=== PATIENT | male | born 1965 | race Caucasian/White ===

== ENCOUNTER 2020-06-06 02:58 | Emergency (ER) | payer MEDICARE, MEDICAID, SELFPAY ==
[2020-06-06 03:06] VITALS: BP 146/92; PULSE 89; RESP 16; TEMP 36.4; O2SAT 99; BMI 25.8
[2020-06-06 03:21] LABS: MANUAL DIFF FLAG NO
[2020-06-06 03:22] LABS: Basophils Absolute Auto 0.1 X10*3/uL (0.0-0.2); Basophils Percent Auto 0.7 % (0-2); Eosinophils Absolute Auto 0.6 X10*3/uL (0.0-0.4); Eosinophils Percent Auto 6.4 % (0-4); Hematocrit 46.9 % (42-52); Hemoglobin 15.2 g/dl (14.0-18.0); Imm Gran Abs Auto 0.02 X10*3/uL (0.00-0.03); Imm Gran Pct Auto 0.2 % (0.0-0.4); Lymphocytes Absolute Auto 1.8 X10*3/uL (1.2-4.9); Lymphocytes Percent Auto 19.6 % (20-40); Mean Corpuscular HGB Conc 32.4 g/dl (31.0-36.0); Mean Corpuscular Hemoglobin 29.3 pg (27.0-33.0); Mean Corpuscular Volume 90.5 fL (80-98); Monocytes Absolute Auto 0.9 X10*3/uL (0.1-1.2); Monocytes Percent Auto 9.2 % (2-11); Neutrophils Percent Auto 63.9 % (45-73); Platelet Count 373 X10*3/uL (160-400); Red Blood Count 5.18 X10*6/uL (4.60-5.80); Red Cell Distribution Width 11.9 % (11.0-16.0); White Blood Count 9.4 X10*3/uL (4.8-10.8)
[2020-06-06 04:00] LABS: Alanine Aminotransferase 9 U/L (0-40); Albumin Level 3.9 g/dL (3.5-5.0); Alkaline Phosphatase 72 U/L (39-117); Anion Gap 12 (12-20); Aspartate Amino Transferase 12 U/L (5-37); Bilirubin Total 0.6 mg/dL (0.0-1.0); Blood Urea Nitrogen 18 mg/dL (9-16); Carbon Dioxide 24 mmol/L (22-29); Chloride 104 mmol/L (96-108); Creatinine Clr Calc Pharmacy 90.7; Estimated Glomerular Filt Rate > 60; Glucose Random 85 mg/dL (60-115); Potassium 4.3 mmol/l (3.3-5.1); Sodium 136 mmol/L (135-145); Total Protein 6.8 g/dL (6.5-8.0)
[2020-06-06 05:03] LABS: Calcium 8.8 mg/dL (8.4-10.2)
[2020-06-06 06:20] VITALS: BP 156/97; PULSE 88; RESP 16; TEMP 36.5; O2SAT 96
--- NOTE | 2020-06-06 06:34 | CT_ITS ---
EXAMINATION: CT ABDOMEN AND PELVIS WITHOUT CONTRAST CLINICAL INFORMATION: Constipation. Urinary retention. Abdominal pain. COMPARISON: Previous CTA of the abdomen and pelvis February 2020 TECHNIQUE: Multidetector volumetric imaging was performed from the superior aspect of the liver through the pubic symphysis. Sagittal and coronal reformatted images were obtained on the technologist's workstation. This CT examination was performed using dose optimization techniques as appropriate, variously including the following: *Automated exposure control *Adjustment of mA and/or kV according to patient size (this includes techniques or standardized protocols for targeted exams where dose is matched to indication/reason for exam; i.e. extremities or head) *Use of iterative reconstruction technique DLP: 749 mGy-cm FINDINGS: LUNG BASES: The visualized lung bases are unremarkable. LIVER, GALLBLADDER, AND BILIARY TREE: The liver is normal in size, shape, and attenuation. No focal hepatic lesion or biliary ductal dilatation is present. The gallbladder is unremarkable with no evidence of radiopaque gallstones, gallbladder wall thickening, or obvious pericholecystic inflammatory changes. PANCREAS: Unremarkable. SPLEEN: Unremarkable. ADRENAL GLANDS: There is nodular contour of the adrenal glands. There is question of bilateral low-attenuation adrenal nodules measuring 1 x 1.7 cm on the right axial image 20 series 3 and 6 mm on the left axial image 22 series 3. Hounsfield units measure 9 and -22 suggestive of a benign adenomas. This is similar appearing to recent CTA of the abdomen and pelvis. KIDNEYS AND URETERS: There is a left cortical thinning or scarring in the upper pole. There is a small 2 mm left upper and midpole stone. No hydronephrosis, ureteral dilatation or ureteral stone is seen. BLADDER: Unremarkable. GASTROINTESTINAL TRACT: There is stool throughout the colon questionable for constipation. No dilated loops of bowel to suggest obstruction are seen. The small bowel is unremarkable. The appendix is unremarkable. The stomach is unremarkable. ABDOMINAL WALL: No significant hernia is appreciated. LYMPH NODES: Normal. VASCULAR: There is evidence of atherosclerotic disease. No aneurysm is seen. PELVIC VISCERA: Unremarkable. OSSEOUS STRUCTURES: There is a scoliosis and degenerative change of the spine. There may be an old L1 vertebral body compression fracture. There is question of evidence of old trauma to the right pelvis/acetabulum. No acute fracture is seen. IMPRESSION: Cortical thinning or scarring in the upper pole of the left kidney. Small nonobstructing left renal stone. Otherwise normal-appearing kidneys and bladder. Stool throughout the colon suggestive of constipation. No evidence of obstruction. Probable small bilateral adrenal adenomas.
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
[2020-06-06 08:00] VITALS: BP 133/85; PULSE 75; RESP 16
[2020-06-06 10:19] LABS: Glucose Urine UA NEG (NEG); Leukocyte Esterase Urine NEG (NEG); Nitrite Urine NEG (NEG); PH 6.5 (5.0-8.0); Specific Gravity - Urine 1.025 (1.005-1.025); Urine Blood NEG (NEG); Urine Ketones NEG (NEG); Urine Protein NEG (NEG-TRACE)
[2020-06-06 10:22] LABS: Appearance Urine HAZY; Color Urine YELLOW; UACC Culture Trigger NO
== END 2020-06-06 13:25 | disposition home or self-care (01) ==
PROVIDERS: Emergency Provider Emergency Medicine
DX: K59.00 Constipation, unspecified (principal); Z79.899 Other long term (current) drug therapy
CPT/HCPCS: 36415; 74176; 80053; 81003; 85025; 99284

== ENCOUNTER 2020-08-19 01:49 | Emergency (ER) | payer MEDICARE, SELFPAY ==
[2020-08-19 02:05] VITALS: BP 133/84; PULSE 86; RESP 16; TEMP 36.8; O2SAT 97; BMI 30.4
--- NOTE | 2020-08-19 05:06 | XR_ITS ---
EXAMINATION: ABDOMEN 1 VIEW CLINICAL INFORMATION: Constipation. COMPARISON: None. TECHNIQUE: A supine view of the abdomen is provided. FINDINGS: There are no dilated loops of small bowel. There are no air-fluid levels. There is no appendicolith. The visualized lung bases are clear. The osseous structures are unremarkable. XR/XR KUB IMPRESSION: Unremarkable bowel gas pattern.
--- NOTE | 2020-08-19 05:44 | ED.GENADULT ---
HPI - General Adult General Chief complaint: General Medical Stated complaint: constipation Time Seen by Provider: 08/19/20 04:23 Source: patient Mode of arrival: ambulatory Limitations: no limitations History of Present Illness HPI narrative: This is a 55-year-old male who presents with complaints of 4 days without having a bowel movement that he states is common for him to have difficulties with and he typically uses [id number] liquid drink to help with his bowel movements and states that this is not been helping. He denies any associated fevers, chills, nausea, vomiting and states that he has continued to pass flatus. Related Data Previous Rx's Medication Instructions Recorded magnesium citrate 37.5 ml PO BID PRN #296 ml 06/06/20 sennosides [senna] 8.6 mg PO BEDTIME PRN #30 cap 06/06/20 Allergies Allergy/AdvReac Type Severity Reaction Status Date / Time No Known Allergies Allergy Unverified 05/10/20 17:06 [No Known Allergies*] Review of Systems Review of Systems: Pertinent positives and negatives as stated in HPI 10 point review of systems is otherwise negative. PMFSH Past Medical History Source: nursing notes reviewed Medical History TBI (traumatic brain injury) Social History Social History Alcohol intake: never Smoking Status: Never smoker Use of substances other than those prescribed or required for medical reasons: No Advance Directives: No Advance Directives Information Provided: Yes Physical Exam Vital Signs: Vital Signs: Last Vital Signs Temp 97.6 F 08/19/20 06:19 Pulse 82 08/19/20 06:19 Resp 16 08/19/20 06:19 BP 131/80 08/19/20 06:19 Pulse Ox 96 08/19/20 06:19 Body Mass Index 30.4 VITAL SIGNS: Reviewed. GENERAL: Well developed, well nourished, in no acute distress. HEAD: Normocephalic/atraumatic, EYES: PERRLA, EOMI intact without pain EARS: Ext canals without abnormality, TMs non-bulging and non-erythematous NOSE: Nares patent bilateral OROPHARYNX: no oral lesions noted, posterior pharynx clear and non-erythematous without noted tonsillar enlargement/erythema/exudates NECK: Supple, no adenopathy LUNGS: Normal breath sounds. No adventitious sounds or accessory muscle use. SpO2<97> CARDIOVASCULAR: Regular rate and rhythm without noted murmurs, no JVD or lower extremity edema. ABDOMEN: Soft, non-tender, non-distended with bowel sounds. No rigidity. No guarding. No palpable masses or hernias noted Course Course Course Narrative: This is a 55-year-old male with history and clinical presentation consistent with chronic constipation and initial KUB significant for normal bowel gas pattern, however given patient's underlying illnesses with seizures and TBI proceed with dry scan of CT abdomen pelvis for further detail. The latter imaging illustrated mild to moderate stool load throughout the colon without obvious distended bowel loops. All results and findings were discussed with the patient at bedside and it was explained to him that at this stage he would benefit most from increasing the frequency the MiraLax to twice a day as well as purchasing an [id number] Fleet's enema if no bowel movement within 24 hours. He acknowledged understanding and will be discharged home in stable condition with these instructions in his discharge paperwork. Discharge Plan Discharge Clinical Impression: Constipation Qualifiers: Constipation type: other constipation type Qualified Code(s): K59.09 - Other constipation Patient Disposition: Home, Self-Care Instructions: Constipation (ED), Fleet Enema (ED), High Fiber Diet (ED) Additional Instructions: 1. MiraLax 1 packet, orally, twice a day until you began having regular soft bowel movements. You should stop this if you begin developing diarrhea. 2. Recommend using a Fleet's enema if you do not began having bowel movements within the next 24 hours. Only use the Fleet's enema once. 3. Increase water intake as well as raw fruits and vegetables. 4. Please return to the emergency department if you do not experience any improvement in 48 hours. Prescriptions: No Action senna 8.6 mg capsule 8.6 mg PO BEDTIME PRN (Reason: constipation) Qty: 30 RF: 0 magnesium citrate Solution 37.5 ml PO BID PRN (Reason: constipation) Qty: 296 RF: 0 Referrals: Tremayne Deras MD [Primary Care Provider] - 2 days (Re-evaluation for constipation)
--- NOTE | 2020-08-19 05:55 | CT_ITS ---
EXAMINATION: CT ABDOMEN AND PELVIS WITHOUT CONTRAST CLINICAL INFORMATION: Abdominal discomfort. COMPARISON: 06/06/2020. TECHNIQUE: Contiguous axial thin section helical images of the abdomen and pelvis were performed without oral or IV contrast. The data set was reformatted in the coronal and sagittal planes and reviewed on an independent workstation. Please note that evaluation for inflammatory and infectious processes is significantly limited due to the lack of IV contrast. DLP: 621 mGy-cm. FINDINGS: There is mild dependent bibasilar atelectasis. The visualized lung bases are otherwise clear. The visualized portions of the heart are unremarkable. The liver is of normal size and attenuation without focal lesions nor intrahepatic biliary ductal dilation. A normal gallbladder is identified. There is no wall thickening or discernible pericholecystic fluid. The spleen, pancreas and left adrenal glands are unremarkable. There is stable fullness to the right adrenal gland measuring 17 mm. Both kidneys are of normal size and attenuation without hydronephrosis or nephrolithiasis. There is stable scarring within the interpole region of the left kidney. There is no abdominal free fluid. There is neither mesenteric nor retroperitoneal lymphadenopathy. Normal unopacified loops of small and large bowel are identified. A normal appendix is identified. There is no pelvic free fluid. The urinary bladder is unremarkable. There is neither pelvic nor inguinal lymphadenopathy. Bone windows: Neither sclerotic nor lytic bone lesions are identified. CT/CT abdomen pelvis wo con IMPRESSION: Please note that evaluation for inflammatory and infectious processes is significantly limited due to the lack of IV contrast. However, no acute inflammatory or infectious processes are suspected on the noncontrast exam. Automated exposure control (Care Dose) Adjustment of the mA and/or kv according to patient size (this includes techniques or standardized protocols for targeted exams where dose is matched to indication / reason for exam; i.e. extremities or head).
[2020-08-19 06:19] VITALS: BP 131/80; PULSE 82; RESP 16; TEMP 36.4; O2SAT 96
== END 2020-08-19 07:57 | disposition home or self-care (01) ==
PROVIDERS: Emergency Provider Student in an Organized Health Care Education/Training Program; PCP Internal Medicine
DX: K59.09 Other constipation (principal); Z79.899 Other long term (current) drug therapy
CPT/HCPCS: 74018; 74176; 99284

== ENCOUNTER 2020-11-13 13:36 | Emergency (ER) | payer MEDICARE, SELFPAY ==
--- NOTE | ~2020-11-13 | CT_ITS ---
EXAMINATION: HEAD AND FACIAL BONES AND CERVICAL SPINE CT WITHOUT CONTRAST CLINICAL INFORMATION: Full seizure. Fall. Laceration right maxillary area. COMPARISON: Previous head CT most recent February 2020 TECHNIQUE: Axial images through the head, facial bones and cervical spine without contrast. Sagittal and coronal reconstructions on the technologist workstation were performed. Patient dose 846+525+5 2 8 mg/cm. This CT examination was performed using dose optimization techniques as appropriate, variously including the following: *Automated exposure control *Adjustment of mA and/or kV according to patient size (this includes techniques or standardized protocols for targeted exams where dose is matched to indication/reason for exam; i.e. extremities or head) *Use of iterative reconstruction technique FINDINGS: Head CT: There is no evidence of an extra-axial collection. There is no evidence of intra-axial or extra-axial hemorrhage. There are atrophic changes of the cerebellum. The ventricles and extra-axial CSF spaces are otherwise appropriate. Davies-white matter differentiation is normal. No mass, mass effect or infarct is seen. Review at bone windows is normal. No skull fracture is seen. Visualized paranasal sinuses, mastoid air cells and middle ears are clear. Facial bone bone: No fracture or dislocation is seen. Paranasal sinuses, mastoid air cells and middle ears are clear. The temporal mandibular joints are normal. There is evidence of trauma to the superficial soft tissues of the right side of the face overlying the right zygomatic arch. Soft tissues are otherwise normal. Cervical spine: There is head tilt to the right and curvature of the mid cervical spine to the left. There is mild anterior subluxation of C4 with respect to C5 measuring 2 mm. Bone alignment is otherwise normal. No fracture or dislocation is seen. There is evidence of multilevel degenerative spondylosis and degenerative disc disease from C3-C3-C4 to C7-T1. There is bilateral multilevel facet arthritis greatest at C4-C5 on the right. Prevertebral soft tissues are normal. Lung apices are clear. CT/CT cervical spine wo con IMPRESSION: Head CT: Cerebellar atrophy. No acute findings. Facial bone CT: No fractures seen. Cervical spine CT: Degenerative changes. No fracture or dislocation seen.
--- NOTE | ~2020-11-13 | XR_ITS ---
EXAMINATION: XR KNEE, RIGHT, hand/wrist, right. CLINICAL INFORMATION: Status post fall. Right hand injury. COMPARISON: None TECHNIQUE: Four views of the right knee. 4 views of right knee. FINDINGS: RIGHT HAND/WRIST: There is no visible fracture, dislocation or subluxation. The soft tissues are normal. RIGHT KNEE: There is mild loss of medial and patellofemoral compartment joint space without any loose bodies, bony erosive changes or joint effusion. There is bone fragment adjacent to the medial femoral condyle likely old avulsion injury. A sessile enthesophyte is seen along the anterior patella. XR/XR hand wrist RT IMPRESSION: Unremarkable right hand/wrist exam. Mild degenerative changes medial and patellofemoral compartment. No fracture, loose bodies or joint effusion. There is a small avulsion fragment adjacent to the medial femoral condyle likely old injury.
--- NOTE | ~2020-11-13 | XR_ITS ---
EXAMINATION: XR KNEE, RIGHT, hand/wrist, right. CLINICAL INFORMATION: Status post fall. Right hand injury. COMPARISON: None TECHNIQUE: Four views of the right knee. 4 views of right knee. FINDINGS: RIGHT HAND/WRIST: There is no visible fracture, dislocation or subluxation. The soft tissues are normal. RIGHT KNEE: There is mild loss of medial and patellofemoral compartment joint space without any loose bodies, bony erosive changes or joint effusion. There is bone fragment adjacent to the medial femoral condyle likely old avulsion injury. A sessile enthesophyte is seen along the anterior patella. XR/XR knee RT 4V IMPRESSION: Unremarkable right hand/wrist exam. Mild degenerative changes medial and patellofemoral compartment. No fracture, loose bodies or joint effusion. There is a small avulsion fragment adjacent to the medial femoral condyle likely old injury.
[2020-11-13 13:47] VITALS: BP 145/78; PULSE 93; RESP 17; TEMP 36.6; O2SAT 95; BMI 30.4
--- NOTE | 2020-11-13 14:10 | ECG_ITS ---
Test Reason : SEIZURE Blood Pressure : / mmHG Vent. Rate : 089 BPM Atrial Rate : 089 BPM P-R Int : 160 ms QRS Dur : 088 ms QT Int : 362 ms P-R-T Axes : 059 061 054 degrees QTc Int : 440 ms Normal sinus rhythm Normal ECG When compared with ECG of 24-FEB-2020 14:04, No significant change was found Referred By: Devika Poole Electronically Signed By:DEDRA BALTAZAR
[2020-11-13] MEDS: Lidocaine HCl 1 % MPF 5 ML VIAL SUBCUT (15:15)
[2020-11-13 15:16] LABS: MANUAL DIFF FLAG NO
[2020-11-13] MEDS: Phenytoin Sodium Extended 100 MG CAPSULE 200 MG PO (15:16)
[2020-11-13] MEDS: Acetaminophen 325 MG TABLET 975 MG PO (15:16)
[2020-11-13 15:27] LABS: Basophils Percent Auto 0.4 % (0-2); Eosinophils Absolute Auto 0.4 X10*3/uL (0.0-0.4); Eosinophils Percent Auto 4.1 % (0-4); Hematocrit 45.6 % (42-52); Hemoglobin 14.7 g/dl (14.0-18.0); Imm Gran Abs Auto 0.03 X10*3/uL (0.00-0.03); Imm Gran Pct Auto 0.3 % (0.0-0.4); Lymphocytes Absolute Auto 1.3 X10*3/uL (1.2-4.9); Lymphocytes Percent Auto 12.9 % (20-40); Mean Corpuscular HGB Conc 32.2 g/dl (31.0-36.0); Mean Corpuscular Hemoglobin 30.4 pg (27.0-33.0); Mean Corpuscular Volume 94.2 fL (80-98); Mean Platelet Volume 8.5 fL (9.4-12.4); Monocytes Absolute Auto 1.2 X10*3/uL (0.1-1.2); Monocytes Percent Auto 11.6 % (2-11); Neutrophils Absolute Auto 7.4 X10*3/uL (2.0-8.3); Neutrophils Percent Auto 70.7 % (45-73); Platelet Count 310 X10*3/uL (160-400); Red Blood Count 4.84 X10*6/uL (4.60-5.80); Red Cell Distribution Width 11.9 % (11.0-16.0); White Blood Count 10.4 X10*3/uL (4.8-10.8)
[2020-11-13 15:28] LABS: INTERNATIONAL NORM RATIO 1.1 (0.9-1.1); Prothrombin Time 13.1 SEC (10.8-13.0)
[2020-11-13 15:30] LABS: Partial Thromboplastin Time 35.5 SEC (24.1-38.0)
[2020-11-13 15:31] LABS: Influenza A PCR NEGATIVE (Negative); Influenza B PCR NEGATIVE (Negative); Resp Syncy Virus RNA Qual PCR NEGATIVE (Negative); SARS COV2 PCR INHOUSE NEGATIVE (Negative)
[2020-11-13 15:42] LABS: Ethanol < 10 mg/dL
[2020-11-13 15:44] LABS: Acetaminophen LAB < 1 mcg/mL (<30); Alanine Aminotransferase 6 U/L (0-40); Albumin Level 4.1 g/dL (3.5-5.0); Alkaline Phosphatase 78 U/L (39-117); Anion Gap 10 (12-20); Aspartate Amino Transferase 12 U/L (5-37); Bilirubin Total 0.7 mg/dL (0.0-1.0); Blood Urea Nitrogen 15 mg/dL (9-16); Calcium 8.9 mg/dL (8.4-10.2); Carbon Dioxide 32 mmol/L (22-29); Chloride 103 mmol/L (96-108); Creatinine Clr Calc Pharmacy 104.9; Estimated Glomerular Filt Rate > 60; Glucose Random 81 mg/dL (60-115); Magnesium 2.5 mg/dL (1.6-2.6); Salicylate < 5.0 mg/dL (15-30); Sodium 141 mmol/L (135-145)
[2020-11-13 15:49] LABS: B Type Natriuretic Peptide < 10 pg/mL (<100); Troponin-I High Sensitivity < 3.5 ng/L (<3.5-35.0)
--- NOTE | 2020-11-13 16:22 | ED_ITS ---
HPI - General Adult General Chief complaint: General Medical Stated complaint: FELL OUT OF WHEELCHAIR Time Seen by Provider: 11/13/20 14:08 Related Data Previous Rx's Medication Instructions Recorded magnesium citrate 37.5 ml PO BID PRN #296 ml 06/06/20 sennosides [senna] 8.6 mg PO BEDTIME PRN #30 cap 06/06/20 phenytoin sodium extended 100 mg PO BID #60 cap 11/13/20 [Dilantin Extended] Allergies Allergy/AdvReac Type Severity Reaction Status Date / Time No Known Allergies Allergy Unverified 05/10/20 17:06 [No Known Allergies*] [facility] Past Medical History Medical History (Updated 11/13/20 @ 17:15 by RIDGE Guthrie) Seizure disorder TBI (traumatic brain injury) Social History Social History Alcohol intake: never Smoking Status: Never smoker Advance Directives: No Advance Directives Information Provided: No Physical Exam Vital Signs: Vital Signs: Last Vital Signs Temp 98 F 11/13/20 13:47 Pulse 93 11/13/20 13:47 Resp 17 11/13/20 13:47 BP 145/78 H 11/13/20 13:47 Pulse Ox 95 11/13/20 13:47 Body Mass Index 30.4 Procedures Laceration Laceration 1: Site: face Side (If applicable): right Size (cm): 3 Description: linear Depth: simple, single layer Local Anesthetic: lidocaine 1% Amount of anesthesia used (mL): 3 Pre-repair: wound explored, irrigated extensively and deep structures intact Skin layer closed with: nylon Size (cm): 5-0 Number of sutures: 7 Technique: simple, interrupted Medical Decision Making Lab Data Lab results reviewed: Yes I reviewed the patient's lab results. Result diagrams: 11/13/20 15:04 11/13/20 15:04 Labs: Lab Results 11/13/20 11/13/20 11/13/20 Range/Units 14:45 15:04 15:04 WBC 10.4 (4.8-10.8) X10*3/uL RBC 4.84 (4.60-5.80) X10*6/uL Hgb 14.7 (14.0-18.0) g/dl Hct 45.6 (42-52) % MCV 94.2 (80-98) fL MCH 30.4 (27.0-33.0) pg MCHC 32.2 (31.0-36.0) g/dl RDW 11.9 (11.0-16.0) % Plt Count 310 (160-400) X10*3/uL MPV 8.5 L (9.4-12.4) fL Immature Gran % (Auto) 0.3 (0.0-0.4) % Neut % (Auto) 70.7 (45-73) % Lymph % (Auto) 12.9 L (20-40) % [place] % (Auto) 11.6 H (2-11) % Eos % (Auto) 4.1 H (0-4) % Baso % (Auto) 0.4 (0-2) % Lymph # (Auto) 1.3 (1.2-4.9) X10*3/uL [place] # (Auto) 1.2 (0.1-1.2) X10*3/uL Eos # (Auto) 0.4 (0.0-0.4) X10*3/uL Baso # (Auto) 0.0 (0.0-0.2) X10*3/uL Abs Immat Gran (auto) 0.03 (0.00-0.03) X10*3/uL Absolute Neuts (auto) 7.4 (2.0-8.3) X10*3/uL Absolute Nucleated RBC 0.000 (0.0-0.012) X10*3/uL Nucleated RBC % (auto) 0.0 (0.0-0.2) /100WBC PT 13.1 H (10.8-13.0) SEC INR 1.1 (0.9-1.1) APTT 35.5 (24.1-38.0) SEC Sodium (135-145) mmol/L Potassium (3.3-5.1) mmol/L Chloride (96-108) mmol/L Carbon Dioxide (22-29) mmol/L Anion Gap (12-20) BUN (9-16) mg/dL Creatinine (0.5-1.4) mg/dL Estim Creat Clear Calc Estimated GFR Random Glucose (60-115) mg/dL Calcium (8.4-10.2) mg/dL Magnesium (1.6-2.6) mg/dL Total Bilirubin (0.0-1.0) mg/dL AST (5-37) U/L ALT (0-40) U/L Alkaline Phosphatase (39-117) U/L Total Creatine Kinase (38-174) U/L Troponin I High Sens (<3.5-35.0) ng/L B-Natriuretic Peptide (<100) pg/mL Total Protein (6.5-8.0) g/dL Albumin (3.5-5.0) g/dL Salicylates (15-30) mg/dL Acetaminophen (<30) mcg/mL Phenytoin (10.0-20.0) ug/mL Ethyl Alcohol mg/dL Coronavirus (PCR) NEGATIVE (Negative) Influenza Type A (PCR) NEGATIVE (Negative) Influenza Type B (PCR) NEGATIVE (Negative) RSV RNA Qual (PCR) NEGATIVE (Negative) 11/13/20 11/13/20 11/13/20 Range/Units 15:04 15:04 15:04 WBC (4.8-10.8) X10*3/uL RBC (4.60-5.80) X10*6/uL Hgb (14.0-18.0) g/dl Hct (42-52) % MCV (80-98) fL MCH (27.0-33.0) pg MCHC (31.0-36.0) g/dl RDW (11.0-16.0) % Plt Count (160-400) X10*3/uL MPV (9.4-12.4) fL Immature Gran % (Auto) (0.0-0.4) % Neut % (Auto) (45-73) % Lymph % (Auto) (20-40) % [place] % (Auto) (2-11) % Eos % (Auto) (0-4) % Baso % (Auto) (0-2) % Lymph # (Auto) (1.2-4.9) X10*3/uL [place] # (Auto) (0.1-1.2) X10*3/uL Eos # (Auto) (0.0-0.4) X10*3/uL Baso # (Auto) (0.0-0.2) X10*3/uL Abs Immat Gran (auto) (0.00-0.03) X10*3/uL Absolute Neuts (auto) (2.0-8.3) X10*3/uL Absolute Nucleated RBC (0.0-0.012) X10*3/uL Nucleated RBC % (auto) (0.0-0.2) /100WBC PT (10.8-13.0) SEC INR (0.9-1.1) APTT (24.1-38.0) SEC Sodium 141 (135-145) mmol/L Potassium 4.0 (3.3-5.1) mmol/L Chloride 103 (96-108) mmol/L Carbon Dioxide 32 H (22-29) mmol/L Anion Gap 10 L (12-20) BUN 15 (9-16) mg/dL Creatinine 0.86 (0.5-1.4) mg/dL Estim Creat Clear Calc 104.9 Estimated GFR > 60 Random Glucose 81 (60-115) mg/dL Calcium 8.9 (8.4-10.2) mg/dL Magnesium 2.5 (1.6-2.6) mg/dL Total Bilirubin 0.7 (0.0-1.0) mg/dL AST 12 (5-37) U/L ALT 6 (0-40) U/L Alkaline Phosphatase 78 (39-117) U/L Total Creatine Kinase (38-174) U/L Troponin I High Sens < 3.5 (<3.5-35.0) ng/L B-Natriuretic Peptide < 10 (<100) pg/mL Total Protein 7.0 (6.5-8.0) g/dL Albumin 4.1 (3.5-5.0) g/dL Salicylates < 5.0 L (15-30) mg/dL Acetaminophen < 1 (<30) mcg/mL Phenytoin (10.0-20.0) ug/mL Ethyl Alcohol < 10 mg/dL Coronavirus (PCR) (Negative) Influenza Type A (PCR) (Negative) Influenza Type B (PCR) (Negative) RSV RNA Qual (PCR) (Negative) 11/13/20 11/13/20 Range/Units 15:04 15:04 WBC (4.8-10.8) X10*3/uL RBC (4.60-5.80) X10*6/uL Hgb (14.0-18.0) g/dl Hct (42-52) % MCV (80-98) fL MCH (27.0-33.0) pg MCHC (31.0-36.0) g/dl RDW (11.0-16.0) % Plt Count (160-400) X10*3/uL MPV (9.4-12.4) fL Immature Gran % (Auto) (0.0-0.4) % Neut % (Auto) (45-73) % Lymph % (Auto) (20-40) % [place] % (Auto) (2-11) % Eos % (Auto) (0-4) % Baso % (Auto) (0-2) % Lymph # (Auto) (1.2-4.9) X10*3/uL [place] # (Auto) (0.1-1.2) X10*3/uL Eos # (Auto) (0.0-0.4) X10*3/uL Baso # (Auto) (0.0-0.2) X10*3/uL Abs Immat Gran (auto) (0.00-0.03) X10*3/uL Absolute Neuts (auto) (2.0-8.3) X10*3/uL Absolute Nucleated RBC (0.0-0.012) X10*3/uL Nucleated RBC % (auto) (0.0-0.2) /100WBC PT (10.8-13.0) SEC INR (0.9-1.1) APTT (24.1-38.0) SEC Sodium (135-145) mmol/L Potassium (3.3-5.1) mmol/L Chloride (96-108) mmol/L Carbon Dioxide (22-29) mmol/L Anion Gap (12-20) BUN (9-16) mg/dL Creatinine (0.5-1.4) mg/dL Estim Creat Clear Calc Estimated GFR Random Glucose (60-115) mg/dL Calcium (8.4-10.2) mg/dL Magnesium (1.6-2.6) mg/dL Total Bilirubin (0.0-1.0) mg/dL AST (5-37) U/L ALT (0-40) U/L Alkaline Phosphatase (39-117) U/L Total Creatine Kinase 88 (38-174) U/L Troponin I High Sens (<3.5-35.0) ng/L B-Natriuretic Peptide (<100) pg/mL Total Protein (6.5-8.0) g/dL Albumin (3.5-5.0) g/dL Salicylates (15-30) mg/dL Acetaminophen (<30) mcg/mL Phenytoin < 0.5 L* (10.0-20.0) ug/mL Ethyl Alcohol mg/dL Coronavirus (PCR) (Negative) Influenza Type A (PCR) (Negative) Influenza Type B (PCR) (Negative) RSV RNA Qual (PCR) (Negative) Imaging Data CT scan of brain/facial bones/cervical spine: Attestation: I personally reviewed and interpreted this imaging study as follows: Radiologist's impression: FINDINGS: Head CT: There is no evidence of an extra-axial collection. There is no evidence of intra-axial or extra-axial hemorrhage. There are atrophic changes of the cerebellum. The ventricles and extra-axial CSF spaces are otherwise appropriate. Davies-white matter differentiation is normal. No mass, mass effect or infarct is seen. Review at bone windows is normal. No skull fracture is seen. Visualized paranasal sinuses, mastoid air cells and middle ears are clear. Facial bone bone: No fracture or dislocation is seen. Paranasal sinuses, mastoid air cells and middle ears are clear. The temporal mandibular joints are normal. There is evidence of trauma to the superficial soft tissues of the right side of the face overlying the right zygomatic arch. Soft tissues are otherwise normal. Cervical spine: There is head tilt to the right and curvature of the mid cervical spine to the left. There is mild anterior subluxation of C4 with respect to C5 measuring 2 mm. Bone alignment is otherwise normal. No fracture or dislocation is seen. There is evidence of multilevel degenerative spondylosis and degenerative disc disease from C3-C3-C4 to C7-T1. There is bilateral multilevel facet arthritis greatest at C4-C5 on the right. Prevertebral soft tissues are normal. Lung apices are clear. CT/CT cervical spine wo con IMPRESSION: Head CT: Cerebellar atrophy. No acute findings. Facial bone CT: No fractures seen. Cervical spine CT: Degenerative changes. No fracture or dislocation seen. Right hand/wrist x-ray/right knee x-ray: Attestation: I personally reviewed and interpreted this imaging study as follows: Radiologist's impression: FINDINGS: RIGHT HAND/WRIST: There is no visible fracture, dislocation or subluxation. The soft tissues are normal. RIGHT KNEE: There is mild loss of medial and patellofemoral compartment joint space without any loose bodies, bony erosive changes or joint effusion. There is bone fragment adjacent to the medial femoral condyle likely old avulsion injury. A sessile enthesophyte is seen along the anterior patella. XR/XR hand wrist RT IMPRESSION: Unremarkable right hand/wrist exam. Mild degenerative changes medial and patellofemoral compartment. No fracture, loose bodies or joint effusion. There is a small avulsion fragment adjacent to the medial femoral condyle likely old injury. ECG Data Attestation: I personally reviewed and interpreted this ECG as follows: Interpretation: Normal sinus rhythm and circular rate of 89 with a normal KS interval normal QRS duration normal QT/QTC interval. No acute ischemic changes noted. Similar compared to prior EKG 02/24/2020 Critical Care Time Critical Care Time Critical Care Time: Yes Total Critical Care Time: 60 Attestation: I personally attest to this time spent taking care of the patient Discharge Plan Discharge Clinical Impression: Seizure, Head injury with loss of consciousness, Facial laceration, Sprain of other part of right wrist and hand, initial encounter, Sprain of right knee Patient Disposition: Home, Self-Care Instructions: Recurrent Seizures in Adults (ED), Facial Laceration (ED) Prescriptions: New phenytoin sodium extended [Dilantin Extended] 100 mg capsule 100 mg PO BID Qty: 60 RF: 0 No Action senna 8.6 mg capsule 8.6 mg PO BEDTIME PRN (Reason: constipation) Qty: 30 RF: 0 magnesium citrate Solution 37.5 ml PO BID PRN (Reason: constipation) Qty: 296 RF: 0 Referrals: Devika Poole PA [Emergency Midlevel Provider] - 5 days (Return in 5 days for suture removal) Print Language: Nauruan
[2020-11-13 16:53] LABS: Phenytoin Dilantin < 0.5 ug/mL (10.0-20.0)
--- NOTE | 2020-11-13 17:17 | ED.SEIZURE ---
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 Patient was brought in by EMS. Patient denied any symptoms prior to the seizure. Reports that he does not like taking his seizure medications due to ?stay dry me out?. He reports his neurologist is Dr. Jones. Reports he lives alone in apartment complex. Reports he feels safe at home and can care for himself at home. Denies any SI/HI/auditory visual hallucinations thoughts of self-injury. Denies any EtOH or drug usage. Denies any dizziness, headaches, changes in vision, fevers, neck pain/stiffness, jaw pain, paresthesias, chest pain, shortness of breath, palpitations, abdominal pain, lower extremity edema, calf pain, diarrhea, constipation, dysuria, hematuria or any other symptoms complaints or concerns MD complaint: seizure Onset (ago): minute(s) Description of Episode: loss of consciousness, bladder incontinence and bowel incontinence Witnessed: Yes - by Bystander Trauma: Yes Seizure History: Yes Place: Outdoors Possible Precipitating Event: none Associated symptoms: denies other symptoms Treatments prior to arrival: none Related Data Previous Rx's Medication Instructions Recorded magnesium citrate 37.5 ml PO BID PRN #296 ml 06/06/20 sennosides [senna] 8.6 mg PO BEDTIME PRN #30 cap 06/06/20 phenytoin sodium extended 100 mg PO BID #60 cap 11/13/20 [Dilantin Extended] Allergies Allergy/AdvReac Type Severity Reaction Status Date / Time No Known Allergies Allergy Unverified 05/10/20 17:06 [No Known Allergies*] Review of Systems Review of Systems: Constitutional : No Fever, No Chills, No Night Sweats, No Fatigue, No Malaise ENT/Mouth : No Ear Pain, No Nasal Congestion, No Sinus Pain, No sore throat, No Rhinorrhea Eyes: No Eye Pain, No Swelling, No Redness, No Foreign Body, No Discharge, No Vision Changes Cardiovascular : No Chest Pain, No SOB, No Dyspnea on Exertion, No Orthopnea, No Palpitations Respiratory : No Cough, No Sputum, No Wheezing, No Dyspnea Gastrointestinal : No Nausea, No Vomiting, No Diarrhea, No Constipation, No abdominal Pain, No Hematochezia, No Melena Genitourinary : No Dysuria, No Urinary Frequency, No Urinary Incontinence, No Urgency, No Flank Pain Musculoskeletal : + joint pain, No Myalgias Skin : + lacerations Neuro : + Seizure, + Head injury/LOC, No Focal weakness, No Numbness, No Paresthesias, No Dizziness, No Headache Yes all other systems are reviewed and are negative [facility] Past Medical History Attestation statement: The following information was validated with the patient. Medical History Seizure disorder TBI (traumatic brain injury) Social History Social History Alcohol intake: never Smoking Status: Never smoker Advance Directives: No Advance Directives Information Provided: No Physical Exam Vital Signs: Vital Signs: Last Vital Signs Temp 98 F 11/13/20 13:47 Pulse 93 11/13/20 13:47 Resp 17 11/13/20 13:47 BP 145/78 H 11/13/20 13:47 Pulse Ox 95 11/13/20 13:47 Body Mass Index 30.4 Vital signs have been reviewed as normal and appeared to be correct. Blood pressure hypertensive at 145/78. Heart rate normal. Respiration rate normal. Temperature normal. Oxygen saturation normal. Appearance: Alert. Oriented X3. No acute distress. Head: Right maxillary area with a 3 cm intermediate laceration no foreign bodies noted and not actively bleeding. No bony tenderness noted. The rest of the external exam of the head is within normal limits. Able to rotate head bilaterally. No Vidal signs or raccoon eyes. Eyes: PERRLA. EOMI. No nystagmus noted. Conjunctiva and sclera normal. Eyelids normal. Corneal reflex normal. ENT: EAC normal. TM's Normal. Hearing normal. Pharynx normal. Uvula midline. tongue midline. Moist mucous membranes. No trismus noted. No drooling noted. No muffled voice noted. No nystagmus noted. Neck: Normal inspection. Nontender. No step-offs or deformities noted. Patient neuro intact bilateral and distally in all 4 extremities. Neck supple. FROM. No adenopathy. Trachea midline. Thyroid Normal. No meningeal signs. No neck mass noted. CVS: Normal heart rate and rhythm. Heart sound normal. No murmurs noted. Pulses normal throughout. Respiratory: No respiratory distress. Painless inspiration. Breath sounds normal. No wheezes/rales/rhonchi noted. Chest nontender. No accessory muscle usage noted or decreased air movement noted. Abdomen: Soft and nontender. Bowel sounds normal in all 4 quadrants. No distention noted. No organomegaly noted. No visible injury noted. Back: Nontender. Full range of motion. No step-offs or deformities. No signs of trauma. Skin: Skin warm and dry. Normal skin color. Normal skin turgor. No rashes/lesions noted. Extremities: Patient with tenderness to palpation to right wrist joint with superficial abrasions noted. No obvious deformities noted. Patient has full range of motion of all finger/wrist and hand. Tender to palpation to right knee at the patellar aspect with superficial abrasion noted. No obvious deformity. No laxity noted. For range of motion to right knee joint. No lower extremity edema. No calf tenderness noted. Otherwise all other Extremities exhibit normal range of motion and nontender. Able to shrug shoulders bilaterally and keep up against resistance. Neuro: Oriented X 3. Patient with mild weakness to right upper extremity which is chronic for patient no increased weakness. Otherwise No other motor deficit. No sensory deficit. Reflexes normal. Moving all extremities. No focal motor deficits. Cranial nerves II-XI intact bilaterally. Facial strength normal. Normal cognition. Speech normal. No pronator drift. No tremor noted. No fasciculations noted. No rigidity noted. Muscle tone normal throughout. 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 - on exam patient is alert and oriented x3. Not in any acute distress. Patient with laceration to right maxillary area 3 cm. No active bleeding. No other signs of trauma. Patient has residual right upper extremity weakness which is similar compared to prior per patient no increased weakness. No other focal neuro deficits noted neck is nontender with full range of motion. Back nontender with full range of motion. Patient mild tenderness to right hand/wrist and right knee. No obvious deformities and no laxity noted. Lungs CTA. CV RRR. Abdomen is soft and nontender. - all labs within normal limits. CT scan of brain/cervical spine/facial bones within normal limits no acute processes noted. EKG normal sinus rhythm no acute ischemic changes noted and similar compared to prior. X-ray to right hand/wrist/right knee is negative for any acute processes. Patient is now status post laceration repair with [address] Patient tolerated procedure well. Reports he is up-to-date on tetanus. Reports he feels safe at home I offered Case Management for short-term rehab although patient declined. I consulted with patient's neurologist Dr. Jones who recommended starting the patient back on Dilantin 200 mg b.i.d. no loading dose indicated per neurologist. Therefore patient started on his Dilantin instructed to return if any new or worsening symptoms to follow up with his neurologist and to continue taking his medications as prescribed. Long instructions return in 5 days for suture removal. Patient understood and agree with this plan. Procedures Laceration Laceration 1: Site: face Side (If applicable): right Size (cm): 3 Description: linear Depth: simple, single layer Local Anesthetic: lidocaine 1% Amount of anesthesia used (mL): 3 Pre-repair: wound explored, irrigated extensively and deep structures intact Skin layer closed with: nylon Size (cm): 5-0 Number of sutures: 7 Technique: simple, interrupted MDM - Seizure Medical Records Attestation: I reviewed the patient's medical records. Lab Data Attestation: I reviewed the patient's lab results. Result diagrams: 11/13/20 15:04 11/13/20 15:04 Labs: Lab Results 03/11/13/20 11/13/20 Range/Units 14:45 15:04 15:04 WBC 10.4 (4.8-10.8) X10*3/uL RBC 4.84 (4.60-5.80) X10*6/uL Hgb 14.7 (14.0-18.0) g/dl Hct 45.6 (42-52) % MCV 94.2 (80-98) fL MCH 30.4 (27.0-33.0) pg MCHC 32.2 (31.0-36.0) g/dl RDW 11.9 (11.0-16.0) % Plt Count 310 (160-400) X10*3/uL MPV 8.5 L (9.4-12.4) fL Immature Gran % (Auto) 0.3 (0.0-0.4) % Neut % (Auto) 70.7 (45-73) % Lymph % (Auto) 12.9 L (20-40) % [place] % (Auto) 11.6 H (2-11) % Eos % (Auto) 4.1 H (0-4) % Baso % (Auto) 0.4 (0-2) % Lymph # (Auto) 1.3 (1.2-4.9) X10*3/uL [place] # (Auto) 1.2 (0.1-1.2) X10*3/uL Eos # (Auto) 0.4 (0.0-0.4) X10*3/uL Baso # (Auto) 0.0 (0.0-0.2) X10*3/uL Abs Immat Gran (auto) 0.03 (0.00-0.03) X10*3/uL Absolute Neuts (auto) 7.4 (2.0-8.3) X10*3/uL Absolute Nucleated RBC 0.000 (0.0-0.012) X10*3/uL Nucleated RBC % (auto) 0.0 (0.0-0.2) /100WBC PT 13.1 H (10.8-13.0) SEC INR 1.1 (0.9-1.1) APTT 35.5 (24.1-38.0) SEC Sodium (135-145) mmol/L Potassium (3.3-5.1) mmol/L Chloride (96-108) mmol/L Carbon Dioxide (22-29) mmol/L Anion Gap (12-20) BUN (9-16) mg/dL Creatinine (0.5-1.4) mg/dL Estim Creat Clear Calc Estimated GFR Random Glucose (60-115) mg/dL Calcium (8.4-10.2) mg/dL Magnesium (1.6-2.6) mg/dL Total Bilirubin (0.0-1.0) mg/dL AST (5-37) U/L ALT (0-40) U/L Alkaline Phosphatase (39-117) U/L Total Creatine Kinase (38-174) U/L Troponin I High Sens (<3.5-35.0) ng/L B-Natriuretic Peptide (<100) pg/mL Total Protein (6.5-8.0) g/dL Albumin (3.5-5.0) g/dL Salicylates (15-30) mg/dL Acetaminophen (<30) mcg/mL Phenytoin (10.0-20.0) ug/mL Ethyl Alcohol mg/dL Coronavirus (PCR) NEGATIVE (Negative) Influenza Type A (PCR) NEGATIVE (Negative) Influenza Type B (PCR) NEGATIVE (Negative) RSV RNA Qual (PCR) NEGATIVE (Negative) 11/13/20 11/13/20 11/13/20 Range/Units 15:04 15:04 15:04 WBC (4.8-10.8) X10*3/uL RBC (4.60-5.80) X10*6/uL Hgb (14.0-18.0) g/dl Hct (42-52) % MCV (80-98) fL MCH (27.0-33.0) pg MCHC (31.0-36.0) g/dl RDW (11.0-16.0) % Plt Count (160-400) X10*3/uL MPV (9.4-12.4) fL Immature Gran % (Auto) (0.0-0.4) % Neut % (Auto) (45-73) % Lymph % (Auto) (20-40) % [place] % (Auto) (2-11) % Eos % (Auto) (0-4) % Baso % (Auto) (0-2) % Lymph # (Auto) (1.2-4.9) X10*3/uL [place] # (Auto) (0.1-1.2) X10*3/uL Eos # (Auto) (0.0-0.4) X10*3/uL Baso # (Auto) (0.0-0.2) X10*3/uL Abs Immat Gran (auto) (0.00-0.03) X10*3/uL Absolute Neuts (auto) (2.0-8.3) X10*3/uL Absolute Nucleated RBC (0.0-0.012) X10*3/uL Nucleated RBC % (auto) (0.0-0.2) /100WBC PT (10.8-13.0) SEC INR (0.9-1.1) APTT (24.1-38.0) SEC Sodium 141 (135-145) mmol/L Potassium 4.0 (3.3-5.1) mmol/L Chloride 103 (96-108) mmol/L Carbon Dioxide 32 H (22-29) mmol/L Anion Gap 10 L (12-20) BUN 15 (9-16) mg/dL Creatinine 0.86 (0.5-1.4) mg/dL Estim Creat Clear Calc 104.9 Estimated GFR > 60 Random Glucose 81 (60-115) mg/dL Calcium 8.9 (8.4-10.2) mg/dL Magnesium 2.5 (1.6-2.6) mg/dL Total Bilirubin 0.7 (0.0-1.0) mg/dL AST 12 (5-37) U/L ALT 6 (0-40) U/L Alkaline Phosphatase 78 (39-117) U/L Total Creatine Kinase (38-174) U/L Troponin I High Sens < 3.5 (<3.5-35.0) ng/L B-Natriuretic Peptide < 10 (<100) pg/mL Total Protein 7.0 (6.5-8.0) g/dL Albumin 4.1 (3.5-5.0) g/dL Salicylates < 5.0 L (15-30) mg/dL Acetaminophen < 1 (<30) mcg/mL Phenytoin (10.0-20.0) ug/mL Ethyl Alcohol < 10 mg/dL Coronavirus (PCR) (Negative) Influenza Type A (PCR) (Negative) Influenza Type B (PCR) (Negative) RSV RNA Qual (PCR) (Negative) 11/13/20 11/13/20 Range/Units 15:04 15:04 WBC (4.8-10.8) X10*3/uL RBC (4.60-5.80) X10*6/uL Hgb (14.0-18.0) g/dl Hct (42-52) % MCV (80-98) fL MCH (27.0-33.0) pg MCHC (31.0-36.0) g/dl RDW (11.0-16.0) % Plt Count (160-400) X10*3/uL MPV (9.4-12.4) fL Immature Gran % (Auto) (0.0-0.4) % Neut % (Auto) (45-73) % Lymph % (Auto) (20-40) % [place] % (Auto) (2-11) % Eos % (Auto) (0-4) % Baso % (Auto) (0-2) % Lymph # (Auto) (1.2-4.9) X10*3/uL [place] # (Auto) (0.1-1.2) X10*3/uL Eos # (Auto) (0.0-0.4) X10*3/uL Baso # (Auto) (0.0-0.2) X10*3/uL Abs Immat Gran (auto) (0.00-0.03) X10*3/uL Absolute Neuts (auto) (2.0-8.3) X10*3/uL Absolute Nucleated RBC (0.0-0.012) X10*3/uL Nucleated RBC % (auto) (0.0-0.2) /100WBC PT (10.8-13.0) SEC INR (0.9-1.1) APTT (24.1-38.0) SEC Sodium (135-145) mmol/L Potassium (3.3-5.1) mmol/L Chloride (96-108) mmol/L Carbon Dioxide (22-29) mmol/L Anion Gap (12-20) BUN (9-16) mg/dL Creatinine (0.5-1.4) mg/dL Estim Creat Clear Calc Estimated GFR Random Glucose (60-115) mg/dL Calcium (8.4-10.2) mg/dL Magnesium (1.6-2.6) mg/dL Total Bilirubin (0.0-1.0) mg/dL AST (5-37) U/L ALT (0-40) U/L Alkaline Phosphatase (39-117) U/L Total Creatine Kinase 88 (38-174) U/L Troponin I High Sens (<3.5-35.0) ng/L B-Natriuretic Peptide (<100) pg/mL Total Protein (6.5-8.0) g/dL Albumin (3.5-5.0) g/dL Salicylates (15-30) mg/dL Acetaminophen (<30) mcg/mL Phenytoin < 0.5 L* (10.0-20.0) ug/mL Ethyl Alcohol mg/dL Coronavirus (PCR) (Negative) Influenza Type A (PCR) (Negative) Influenza Type B (PCR) (Negative) RSV RNA Qual (PCR) (Negative) Imaging Data CT scan of brain/cervical spine/facial bones: Attestation: I personally reviewed and interpreted this imaging study as follows: Radiologist's impression: FINDINGS: Head CT: There is no evidence of an extra-axial collection. There is no evidence of intra-axial or extra-axial hemorrhage. There are atrophic changes of the cerebellum. The ventricles and extra-axial CSF spaces are otherwise appropriate. Davies-white matter differentiation is normal. No mass, mass effect or infarct is seen. Review at bone windows is normal. No skull fracture is seen. Visualized paranasal sinuses, mastoid air cells and middle ears are clear. Facial bone bone: No fracture or dislocation is seen. Paranasal sinuses, mastoid air cells and middle ears are clear. The temporal mandibular joints are normal. There is evidence of trauma to the superficial soft tissues of the right side of the face overlying the right zygomatic arch. Soft tissues are otherwise normal. Cervical spine: There is head tilt to the right and curvature of the mid cervical spine to the left. There is mild anterior subluxation of C4 with respect to C5 measuring 2 mm. Bone alignment is otherwise normal. No fracture or dislocation is seen. There is evidence of multilevel degenerative spondylosis and degenerative disc disease from C3-C3-C4 to C7-T1. There is bilateral multilevel facet arthritis greatest at C4-C5 on the right. Prevertebral soft tissues are normal. Lung apices are clear. CT/CT head/brain wo con IMPRESSION: Head CT: Cerebellar atrophy. No acute findings. Facial bone CT: No fractures seen. Cervical spine CT: Degenerative changes. No fracture or dislocation seen. Right hand/wrist/right knee x-ray: Attestation: I personally reviewed and interpreted this imaging study as follows: Radiologist's impression: FINDINGS: RIGHT HAND/WRIST: There is no visible fracture, dislocation or subluxation. The soft tissues are normal. RIGHT KNEE: There is mild loss of medial and patellofemoral compartment joint space without any loose bodies, bony erosive changes or joint effusion. There is bone fragment adjacent to the medial femoral condyle likely old avulsion injury. A sessile enthesophyte is seen along the anterior patella. XR/XR knee RT 4V IMPRESSION: Unremarkable right hand/wrist exam. Mild degenerative changes medial and patellofemoral compartment. No fracture, loose bodies or joint effusion. There is a small avulsion fragment adjacent to the medial femoral condyle likely old injury. ECG Data Attestation: I personally reviewed and interpreted this ECG as follows: ECG interpretation date: 11/13/20 ECG interpretation time: 13:32 Interpretation: Normal sinus rhythm and strictly rate of 89 with a normal CO interval normal QRS duration normal QT/QTC interval. No acute ischemic changes noted. Similar compared to prior EKG February 2020. Critical Care Time Critical Care Time Critical Care Time: Yes Total Critical Care Time: 60 Attestation: I personally attest to this time spent taking care of the patient Discharge Plan Discharge Clinical Impression: Seizure, Head injury with loss of consciousness, Facial laceration, Sprain of other part of right wrist and hand, initial encounter, Sprain of right knee Patient Disposition: Home, Self-Care Instructions: Recurrent Seizures in Adults (ED), Facial Laceration (ED) Prescriptions: New phenytoin sodium extended [Dilantin Extended] 100 mg capsule 100 mg PO BID Qty: 60 RF: 0 No Action senna 8.6 mg capsule 8.6 mg PO BEDTIME PRN (Reason: constipation) Qty: 30 RF: 0 magnesium citrate Solution 37.5 ml PO BID PRN (Reason: constipation) Qty: 296 RF: 0 Referrals: Tremayne Jones MD [Physician] - 2 days Devika Poole PA [Emergency Midlevel Provider] - 5 days (Return in 5 days for suture removal) Print Language: Lithuanian
[2020-11-13 17:24] VITALS: BP 130/84; PULSE 90; RESP 18; O2SAT 100
--- NOTE | 2020-11-13 17:33 | PC.NURSE ---
3 attempts made to contact [facility] for ride. no answer. line is busy.
== END 2020-11-13 17:44 | disposition home or self-care (01) ==
PROVIDERS: Physician Assistant Medical; Emergency Provider Emergency Medicine Emergency Medical Services
DX: R56.9 Unspecified convulsions (principal); S09.90XA Unspecified injury of head, initial encounter; S01.411A Laceration without foreign body of right cheek and temporomandibular area, initial encounter; S63.501A Unspecified sprain of right wrist, initial encounter; S83.91XA Sprain of unspecified site of right knee, initial encounter; S60.811A Abrasion of right wrist, initial encounter; S80.211A Abrasion, right knee, initial encounter; W05.0XXA Fall from non-moving wheelchair, initial encounter; Z20.822 Contact with and (suspected) exposure to COVID-19; Z91.14 Patient's other noncompliance with medication regimen; Z87.820 Personal history of traumatic brain injury; Y93.89 Activity, other specified; Y92.512 Supermarket, store or market as the place of occurrence of the external cause; Y99.9 Unspecified external cause status
CPT/HCPCS: 0241U; 12013; 36415; 70450; 70486; 72125; 73110; 73130; 73564; 80053; 80143; 80179; 80185; 80320; 82550; 83735; 83880; 84484; 85025; 85610; 85730; 93005; 99284; 99291

== ENCOUNTER 2020-11-29 12:34 | Emergency (ER) | payer MEDICARE, MEDICAID, SELFPAY ==
--- NOTE | ~2020-11-29 | CT_ITS ---
EXAMINATION: CT HEAD WITHOUT CONTRAST CLINICAL INFORMATION: Seizure, secondary trauma COMPARISON: CT head noncontrast 11/13/2020, 02/24/2020 TECHNIQUE: Contiguous axial imaging was performed from the skull base to vertex without intravenous administration of contrast. Additional 2-D coronal and sagittal reformatted images are generated on the CT workstation and uploaded to PACS. This CT examination was performed using dose optimization techniques as appropriate, variously including the following: *Automated exposure control *Adjustment of mA and/or kV according to patient size (this includes techniques or standardized protocols for targeted exams where dose is matched to indication/reason for exam; i.e. extremities or head) *Use of iterative reconstruction technique DLP: 800 mGy-cm FINDINGS: There is no intracranial hemorrhage, hematoma, or extra-axial fluid collection. There are atrophic changes again seen involving the posterior fossa with cerebellar atrophy and hypertrophy of the cerebellar folia and mild compensatory enlargement fourth ventricle. There is no hydrocephalus. No edema or mass effect. The cain-white matter differentiation appears symmetric. There is no visible acute territorial infarct or mass lesion. There is bulky anterior falx calcification again present. There is chronic mild circumferential thickening of the calvarium. No acute bony abnormality. There is no pneumocephalus or orbital emphysema. The visualized sinuses and middle ears and mastoid air cells show no significant mucosal thickening. There are no air-fluid levels. CT/CT head/brain wo con IMPRESSION: No acute intracranial abnormality.
--- NOTE | ~2020-11-29 | XR_ITS ---
EXAMINATION: XR CHEST CLINICAL INFORMATION: Seizure COMPARISON: Chest radiographs 02/24/2020, 06/11/2019 TECHNIQUE: Portable upright AP view of the chest was obtained. FINDINGS: There are low lung volumes. Crowding bronchovascular markings versus subsegmental atelectasis suggested left base. The lungs otherwise clear. There is no vascular congestion or airspace consolidation or definite groundglass opacity. The heart is normal in size. The hilar and mediastinal contours and bony structures are unremarkable. There is dextrocurvature thoracolumbar spine again seen. XR/XR chest 1V IMPRESSION: Low lung volumes. Disc atelectasis left lateral base.
--- NOTE | ~2020-11-29 | CT_ITS ---
EXAMINATION: CT CERVICAL SPINE WITHOUT CONTRAST CLINICAL INFORMATION: Seizure, fall. COMPARISON: CT neck 11/13/2020 TECHNIQUE: Axial imaging. Sagittal and coronal reconstructions. This CT examination was performed using dose optimization techniques as appropriate, variously including the following: *Automated exposure control *Adjustment of mA and/or kV according to patient size (this includes techniques or standardized protocols for targeted exams where dose is matched to indication/reason for exam; i.e. extremities or head) *Use of iterative reconstruction technique DLP: 590 mGy-cm FINDINGS: Craniocervical, atlantoaxial articulation is maintained. Stable mild anterolisthesis of C4 on C5. Predens space is maintained. Vertebral body heights are maintained. No evidence of acute fracture. Multilevel cervical spondylosis. This includes moderate C4-C5, C5-C6, C6-C7, C7-T1 disc degeneration. Multilevel facet degeneration. This is most prominent at C4-C5. No prevertebral soft tissue swelling. No suspicious thyroid findings. Lung apices are clear. CT/CT cervical spine wo con IMPRESSION: 1. No evidence of acute fracture. 2. Multilevel cervical spondylosis, as detailed above.
[2020-11-29 12:52] VITALS: BP 156/91; PULSE 100; RESP 18; TEMP 36.9; O2SAT 98; BMI 31.3
--- NOTE | 2020-11-29 12:57 | ECG_ITS ---
Test Reason : SEIZURE Blood Pressure : / mmHG Vent. Rate : 092 BPM Atrial Rate : 092 BPM P-R Int : 166 ms QRS Dur : 088 ms QT Int : 368 ms P-R-T Axes : 057 058 051 degrees QTc Int : 455 ms Normal sinus rhythm Possible Left atrial enlargement Borderline ECG When compared with ECG of 13-NOV-2020 13:32, No significant change was found Referred By: Angelita Cruz Electronically Signed By:DEDRA BALTAZAR
--- NOTE | 2020-11-29 13:07 | ED.SEIZURE ---
HPI - Seizure General Chief Complaint: Seizure Stated Complaint: SEIZURE,NON MED COMPLIANT Time Seen by Provider: 11/29/20 12:55 History of Present Illness HPI Narrative: 55-year-old male with a past medical history of seizure disorder non-compliant on medications x multiple years, TBI, CVA with RUE residual weakness presenting to the ED BIBA s/p witnessed seizure and fall out of chair + head trauma with noted facial lacerations, denies LOC. Patient awake and alert at present, denies symptoms prior to seizure. Reports has daily seizures, Neurologist Dr. Jones. Reports mild residual headache/facial pain. Tetanus unknown. Denies visual change/loss, nausea/vomiting, CP/SOB, abdominal pain, weakness, fever/chills, cough MD complaint: seizure Seizure History: Yes Related Data Previous Rx's Medication Instructions Recorded magnesium citrate 37.5 ml PO BID PRN #296 ml 06/06/20 sennosides [senna] 8.6 mg PO BEDTIME PRN #30 cap 06/06/20 phenytoin sodium extended 100 mg PO BID #60 cap 11/13/20 [Dilantin Extended] mjzhjlsv-dzoiavmtaXp-teetbzszO 1 appl TOPICAL BID #28.3 g 11/29/20 [Neosporin (oer-tbw-ajbna)] Allergies Allergy/AdvReac Type Severity Reaction Status Date / Time No Known Allergies Allergy Unverified 05/10/20 17:06 [No Known Allergies*] Review of Systems Review of Systems: Constitutional: No Fever, No Chills ENT/Mouth: No Hearing loss, No Swallowing Difficulty Eyes: No Eye Pain, No Vision Changes Cardiovascular: No Chest Pain, No SOB, No Palpitations Respiratory: No Cough, No Dyspnea Gastrointestinal: No Nausea, No Vomiting, No Diarrhea, No Abdominal pain Genitourinary: No Dysuria, No Urinary Frequency, No Hematuria Musculoskeletal: No joint pain, No Myalgias, No Joint Swelling Skin: +laceration Neuro: No Weakness, No Numbness, No Paresthesias, No Loss of Consciousness, + Headache, +seizure Yes all other systems are reviewed and are negative Neurologic: Denies Abnormal speech present PMFSH Past Medical History Attestation statement: The following information was validated with the patient. Medical History Seizure disorder TBI (traumatic brain injury) Social History Social History Alcohol intake: never Smoking Status: Never smoker Use of substances other than those prescribed or required for medical reasons: No Advance Directives: Yes Advance Directives Information Provided: Yes Advance Directives on File: No Physical Exam Vital Signs: Vital Signs: Last Vital Signs Temp 98.4 F 11/29/20 12:52 Pulse 92 11/29/20 14:01 Resp 19 11/29/20 14:01 BP 155/85 H 11/29/20 14:01 Pulse Ox 95 11/29/20 14:01 Body Mass Index 31.3 Const: General: cooperative, healthy appearing, well developed, alert and awake Orientation/consciousness: patient oriented x3 Limitations: no limitations HENMT: Other: Small abrasion noted to central forehead Avulsion laceration noted to nasal bridge, bleeding controlled. No septal hematoma or epistaxis Head: Yes normal to inspection Ears: hearing grossly normal bilaterally Face and sinus: Yes normal facial exam Mouth: Normal oral and palatal mucosa present Throat: Yes posterior oropharynx normal Eyes: General: appearance normal, both eyes and all related structures Pupils: Equal, round and reactive pupils present EOM: EOMs intact bilaterally Neck: Neck: Yes normal visual inspection and Yes no meningeal signs Resp: Effort & Inspection: normal respiratory effort and no stridor Cardio: Rate: regular rate GI: Inspection: Yes normal to inspection Palpation (GI): Soft to palpation, nontender, no guarding and not rigid Skin: Rashes: no rashes Neuro: Other: Baseline RUE weakness General: patient oriented x3, tone normal, moves all extremities, no meningeal signs, no focal motor deficits and CN's II-XI intact bilaterally Cranial nerves: Yes Equal, round and reactive pupils present Cognition (Neuro): normal cognition Speech: No Abnormal speech present Motor exam (neuro): Pronator motor function not present, no tremor noted, Motor fasciculations not present and Normal motor muscle tone present throughout Coordination: mirdju-zo-[id number] test normal Extrem: General: Yes normal to inspection and Yes full ROM Course Course Course Narrative: -labs unremarkable XR chest 1V IMPRESSION: Low lung volumes. Disc atelectasis left lateral base CT head/brain wo con IMPRESSION: No acute intracranial abnormality CT cervical spine wo con IMPRESSION: 1. No evidence of acute fracture. 2. Multilevel cervical spondylosis, as detailed above -1846--UA negative Discussed with patient results and importance of compliance with seizure medications. MDM - Seizure MDM Narrative Medical decision making narrative: 55-year-old male with a past medical history of seizure disorder non-compliant on medications x multiple years, TBI, CVA with RUE residual weakness presenting to the ED BIBA s/p witnessed seizure and fall out of chair + head trauma with noted facial lacerations, denies LOC. On exam VSS, NAD, A&O x3, no focal neuro deficits, avulsion laceration noted to the nasal bridge. Will update tetanus. Seizure likely from a longstanding medication noncompliance. Rule out metabolic/infectious etiology/ICH Plan: EKG, labs, UA, CXR, head CT, update tetanus Medical Records Attestation: I reviewed the patient's medical records. Lab Data Attestation: I reviewed the patient's lab results. Result diagrams: 11/29/20 15:36 11/29/20 15:36 Labs: Lab Results 11/29/20 11/29/20 11/29/20 Range/Units 15:36 15:36 15:36 WBC 10.8 (4.8-10.8) X10*3/uL RBC 4.86 (4.60-5.80) X10*6/uL Hgb 14.8 (14.0-18.0) g/dl Hct 46.8 (42-52) % MCV 96.3 (80-98) fL MCH 30.5 (27.0-33.0) pg MCHC 31.6 (31.0-36.0) g/dl RDW 11.9 (11.0-16.0) % Plt Count 316 (160-400) X10*3/uL MPV 8.6 L (9.4-12.4) fL Immature Gran % (Auto) 0.3 (0.0-0.4) % Neut % (Auto) 71.5 (45-73) % Lymph % (Auto) 14.7 L (20-40) % [place] % (Auto) 8.9 (2-11) % Eos % (Auto) 4.0 (0-4) % Baso % (Auto) 0.6 (0-2) % Lymph # (Auto) 1.6 (1.2-4.9) X10*3/uL [place] # (Auto) 1.0 (0.1-1.2) X10*3/uL Eos # (Auto) 0.4 (0.0-0.4) X10*3/uL Baso # (Auto) 0.1 (0.0-0.2) X10*3/uL Abs Immat Gran (auto) 0.03 (0.00-0.03) X10*3/uL Absolute Neuts (auto) 7.7 (2.0-8.3) X10*3/uL Absolute Nucleated RBC 0.000 (0.0-0.012) X10*3/uL Nucleated RBC % (auto) 0.0 (0.0-0.2) /100WBC PT 12.4 (10.8-13.0) SEC INR 1.0 (0.9-1.1) APTT 32.0 (24.1-38.0) SEC Sodium 141 (135-145) mmol/L Potassium 4.4 (3.3-5.1) mmol/L Chloride 103 (96-108) mmol/L Carbon Dioxide 30 H (22-29) mmol/L Anion Gap 12 (12-20) BUN 19 H (9-16) mg/dL Creatinine 0.96 (0.5-1.4) mg/dL Estim Creat Clear Calc 92.2 Estimated GFR > 60 Random Glucose 99 (60-115) mg/dL Calcium 8.6 (8.4-10.2) mg/dL Magnesium 2.5 (1.6-2.6) mg/dL Total Bilirubin 0.4 (0.0-1.0) mg/dL Direct Bilirubin 0.2 (0.0-0.5) mg/dL AST 15 (5-37) U/L ALT 11 (0-40) U/L Alkaline Phosphatase 82 (39-117) U/L Total Protein 6.8 (6.5-8.0) g/dL Albumin 3.8 (3.5-5.0) g/dL Urine Color Urine Appearance Urine pH (5.0-8.0) Ur Specific [place] (1.005-1.025) Urine Protein (NEG-TRACE) MG/DL Urine Glucose (UA) (NEG) MG/DL Urine Ketones (NEG) MG/DL Urine Blood (NEG) Urine Nitrite (NEG) Ur Leukocyte Esterase (NEG) Phenytoin < 0.5 L* (10.0-20.0) ug/mL Ethyl Alcohol mg/dL 11/29/20 11/29/20 Range/Units 15:36 18:02 WBC (4.8-10.8) X10*3/uL RBC (4.60-5.80) X10*6/uL Hgb (14.0-18.0) g/dl Hct (42-52) % MCV (80-98) fL MCH (27.0-33.0) pg MCHC (31.0-36.0) g/dl RDW (11.0-16.0) % Plt Count (160-400) X10*3/uL MPV (9.4-12.4) fL Immature Gran % (Auto) (0.0-0.4) % Neut % (Auto) (45-73) % Lymph % (Auto) (20-40) % [place] % (Auto) (2-11) % Eos % (Auto) (0-4) % Baso % (Auto) (0-2) % Lymph # (Auto) (1.2-4.9) X10*3/uL [place] # (Auto) (0.1-1.2) X10*3/uL Eos # (Auto) (0.0-0.4) X10*3/uL Baso # (Auto) (0.0-0.2) X10*3/uL Abs Immat Gran (auto) (0.00-0.03) X10*3/uL Absolute Neuts (auto) (2.0-8.3) X10*3/uL Absolute Nucleated RBC (0.0-0.012) X10*3/uL Nucleated RBC % (auto) (0.0-0.2) /100WBC PT (10.8-13.0) SEC INR (0.9-1.1) APTT (24.1-38.0) SEC Sodium (135-145) mmol/L Potassium (3.3-5.1) mmol/L Chloride (96-108) mmol/L Carbon Dioxide (22-29) mmol/L Anion Gap (12-20) BUN (9-16) mg/dL Creatinine (0.5-1.4) mg/dL Estim Creat Clear Calc Estimated GFR Random Glucose (60-115) mg/dL Calcium (8.4-10.2) mg/dL Magnesium (1.6-2.6) mg/dL Total Bilirubin (0.0-1.0) mg/dL Direct Bilirubin (0.0-0.5) mg/dL AST (5-37) U/L ALT (0-40) U/L Alkaline Phosphatase (39-117) U/L Total Protein (6.5-8.0) g/dL Albumin (3.5-5.0) g/dL Urine Color YELLOW Urine Appearance CLEAR Urine pH 8.0 (5.0-8.0) Ur Specific [place] 1.020 (1.005-1.025) Urine Protein NEG (NEG-TRACE) MG/DL Urine Glucose (UA) NEG (NEG) MG/DL Urine Ketones NEG (NEG) MG/DL Urine Blood NEG (NEG) Urine Nitrite NEG (NEG) Ur Leukocyte Esterase NEG (NEG) Phenytoin (10.0-20.0) ug/mL Ethyl Alcohol < 10 mg/dL ECG Data Attestation: I personally reviewed and interpreted this ECG as follows: ECG interpretation date: 11/29/20 ECG interpretation time: 13:58 Interpretation: EKG normal sinus rhythm. Nonischemic. No STEMI Discharge Plan Discharge Clinical Impression: Seizure, Laceration Patient Disposition: Home, Self-Care Instructions: Epilepsy (ED), Facial Laceration (ED) Additional Instructions: Your blood work, urine, and imaging studies were unremarkable today in the emergency department You need to take your seizure medications as prescribed Need to follow-up with her neurologist Apply Neosporin to your laceration/avulsion If area begins look infected return to the ED If you continue to have seizures return to the ED Prescriptions: New Neosporin (ylh-zqr-wjsuu) 3.5mg-400 unit- 5,000 unit/gram ointment 1 appl topical BID Qty: 28.3 RF: 0 No Action senna 8.6 mg capsule 8.6 mg PO BEDTIME PRN (Reason: constipation) Qty: 30 RF: 0 magnesium citrate Solution 37.5 ml PO BID PRN (Reason: constipation) Qty: 296 RF: 0 phenytoin sodium extended [Dilantin Extended] 100 mg capsule 100 mg PO BID Qty: 60 RF: 0 Referrals: Tremayne Jones MD [Physician] - 2 days
[2020-11-29 14:01] VITALS: BP 155/85; PULSE 92; RESP 19; O2SAT 95
[2020-11-29] MEDS: LORazepam 2 MG/ML VIAL 1 MG IVPUSH (14:19)
[2020-11-29] MEDS: Phenytoin Sodium Extended 100 MG CAPSULE 200 MG PO (14:19)
[2020-11-29] MEDS: Diphth,Pertus(ACell),Tet Adult 0.5 ML SYRINGE IM (15:00)
[2020-11-29 15:41] LABS: MANUAL DIFF FLAG NO
[2020-11-29 15:46] LABS: Basophils Absolute Auto 0.1 X10*3/uL (0.0-0.2); Basophils Percent Auto 0.6 % (0-2); Eosinophils Absolute Auto 0.4 X10*3/uL (0.0-0.4); Hematocrit 46.8 % (42-52); Hemoglobin 14.8 g/dl (14.0-18.0); Imm Gran Abs Auto 0.03 X10*3/uL (0.00-0.03); Imm Gran Pct Auto 0.3 % (0.0-0.4); Lymphocytes Absolute Auto 1.6 X10*3/uL (1.2-4.9); Lymphocytes Percent Auto 14.7 % (20-40); Mean Corpuscular HGB Conc 31.6 g/dl (31.0-36.0); Mean Corpuscular Hemoglobin 30.5 pg (27.0-33.0); Mean Corpuscular Volume 96.3 fL (80-98); Mean Platelet Volume 8.6 fL (9.4-12.4); Monocytes Percent Auto 8.9 % (2-11); Neutrophils Absolute Auto 7.7 X10*3/uL (2.0-8.3); Neutrophils Percent Auto 71.5 % (45-73); Platelet Count 316 X10*3/uL (160-400); Red Blood Count 4.86 X10*6/uL (4.60-5.80); Red Cell Distribution Width 11.9 % (11.0-16.0); White Blood Count 10.8 X10*3/uL (4.8-10.8)
[2020-11-29 15:53] LABS: Prothrombin Time 12.4 SEC (10.8-13.0)
[2020-11-29 16:06] LABS: Ethanol < 10 mg/dL
[2020-11-29 16:09] LABS: Alanine Aminotransferase 11 U/L (0-40); Albumin Level 3.8 g/dL (3.5-5.0); Alkaline Phosphatase 82 U/L (39-117); Anion Gap 12 (12-20); Aspartate Amino Transferase 15 U/L (5-37); Bilirubin Direct 0.2 mg/dL (0.0-0.5); Bilirubin Total 0.4 mg/dL (0.0-1.0); Blood Urea Nitrogen 19 mg/dL (9-16); Calcium 8.6 mg/dL (8.4-10.2); Carbon Dioxide 30 mmol/L (22-29); Chloride 103 mmol/L (96-108); Creatinine Clr Calc Pharmacy 92.2; Estimated Glomerular Filt Rate > 60; Glucose Random 99 mg/dL (60-115); Magnesium 2.5 mg/dL (1.6-2.6); Potassium 4.4 mmol/L (3.3-5.1); Sodium 141 mmol/L (135-145); Total Protein 6.8 g/dL (6.5-8.0)
[2020-11-29 16:36] LABS: Phenytoin Dilantin < 0.5 ug/mL (10.0-20.0)
[2020-11-29 18:34] LABS: Glucose Urine UA NEG (NEG); Leukocyte Esterase Urine NEG (NEG); Nitrite Urine NEG (NEG); Urine Blood NEG (NEG); Urine Ketones NEG (NEG); Urine Protein NEG (NEG-TRACE)
[2020-11-29 18:40] LABS: Appearance Urine CLEAR; Color Urine YELLOW
[2020-11-29 18:47] LABS: Amphetamine Screen Urine Not Detected (Not Detect); Barbiturates, Urine Not Detected (Not Detect); Benzodiazepines Screen Urine Not Detected (Not Detect); Cannabinoid Screen Urine Not Detected (Not Detect); Cocaine Screen Urine Not Detected (Not Detect); Opiate Screen Urine Not Detected (Not Detect); Phencyclidine Screen Urine Not Detected (Not Detect)
[2020-11-29 20:24] VITALS: BP 184/88; PULSE 98; RESP 18; O2SAT 95
== END 2020-11-29 21:04 | disposition home or self-care (01) ==
PROVIDERS: Physician Assistant; Emergency Provider Emergency Medicine; PCP Internal Medicine
DX: R56.9 Unspecified convulsions (principal); Z91.14 Patient's other noncompliance with medication regimen; S01.21XA Laceration without foreign body of nose, initial encounter; W07.XXXA Fall from chair, initial encounter; Y93.89 Activity, other specified; Y92.039 Unspecified place in apartment as the place of occurrence of the external cause; Y99.9 Unspecified external cause status
CPT/HCPCS: 36415; 70450; 71045; 72125; 80048; 80076; 80185; 80307; 80320; 81003; 83735; 85025; 85610; 85730; 90471; 90715; 93005; 96374; 96375; 99284; J2060

== ENCOUNTER 2021-04-10 23:29 | Emergency (ER) | payer MEDICARE, MEDICAID, SELFPAY ==
[2021-04-11 01:05] VITALS: BP 129/88; PULSE 83; RESP 18; TEMP 37; O2SAT 94; BMI 37.1
[2021-04-11 03:03] VITALS: BP 156/97; PULSE 82; RESP 16; TEMP 37.1; O2SAT 96
[2021-04-11 06:19] VITALS: BP 153/94; PULSE 87; RESP 17; O2SAT 97
--- NOTE | 2021-04-11 07:13 | ED_ITS ---
HPI - Abdominal Pain General Chief Complaint: Abdominal Pain Stated Complaint: CONSTIPATION Time Seen by Provider: 04/11/21 01:33 Source: patient Mode of arrival: ambulatory Limitations: no limitations History of Present Illness HPI narrative: Patient with history of chronic constipation comes here for same for last few days tried milk of magnesia yesterday had a small bowel movement still feels full no nausea no vomiting Related Data Previous Rx's Medication Instructions Recorded magnesium citrate 37.5 ml PO BID PRN #296 ml 06/06/20 sennosides 8.6 mg capsule (senna) 8.6 mg PO BEDTIME PRN #30 cap 06/06/20 phenytoin sodium extended 100 mg 100 mg PO BID #60 cap 11/13/20 capsule (Dilantin Extended) neomycin-bacitracn Zn-polymyx 3.5 1 appl TOPICAL BID #28.3 g 11/29/20 mg-400 unit-5,000 unit/gram top oint (Neosporin (nig-dqe-zsill)) polyethylene glycol 3350 17 17 g PO DAILY #510 g 04/11/21 gram/dose oral powder (Miralax) Allergies Allergy/AdvReac Type Severity Reaction Status Date / Time No Known Allergies Allergy Unverified 05/10/20 17:06 [No Known Allergies*] Review of Systems Review of Systems Yes all other systems are reviewed and are negative Physical Exam Vital Signs: Vital Signs: Last Vital Signs Temp 98.7 F 04/11/21 03:03 Pulse 86 04/11/21 07:52 Resp 16 04/11/21 07:52 BP 146/94 H 04/11/21 07:52 Pulse Ox 96 04/11/21 07:52 Body Mass Index 37.1 Appearance: Alert. Oriented X3. No acute distress. ENT: Pharynx normal. Oral Mucosa moist Neck: Normal inspection. Neck supple. CVS: Normal heart rate and rhythm. Pulses normal. Respiratory: No respiratory distress. Equal air entry bilateral, no wheezing/rales/rhonchi Abdomen: Soft and nontender. Bowel sounds are present, no mass palpable, no CVA tenderness Skin: Skin warm and dry. Normal skin color. Normal skin turgor. Extremities: No lower extremity edema. No calf tenderness Neuro: Oriented X 3. MDM - Abdominal Pain MDM Narrative Medical decision making narrative: Patient history of chronic constipation will discharge patient on MiraLax Discharge Plan Discharge Clinical Impression: Constipation Qualifiers: Constipation type: chronic idiopathic constipation Qualified Code(s): K59.04 - Chronic idiopathic constipation Patient Disposition: Home, Self-Care Instructions: Constipation (ED) Additional Instructions: Take medication as advised for constipation follow with PCP Prescriptions: New polyethylene glycol 3350 [Miralax] 17 gram/dose powder 17 g PO DAILY Qty: 510 RF: 0 No Action senna 8.6 mg capsule 8.6 mg PO BEDTIME PRN (Reason: constipation) Qty: 30 RF: 0 magnesium citrate Solution 37.5 ml PO BID PRN (Reason: constipation) Qty: 296 RF: 0 phenytoin sodium extended [Dilantin Extended] 100 mg capsule 100 mg PO BID Qty: 60 RF: 0 Neosporin (iri-ipw-eivzp) 3.5mg-400 unit- 5,000 unit/gram ointment 1 appl topical BID Qty: 28.3 RF: 0 Interventions: ED Discharge Assessment Last Done: 04/11/21 08:49 Discharge Date/Time: 04/11/21 08:20 [facility] Past Medical History Medical History Seizure disorder TBI (traumatic brain injury) Social History Social History Alcohol intake: never Advance Directives: No Advance Directives Information Provided: Yes
[2021-04-11 07:52] VITALS: BP 146/94; PULSE 86; RESP 16; O2SAT 96
[2021-04-11] MEDS: Magnesium Citrate 300 ML SOLUTION PO (07:52)
[2021-04-11] MEDS: bisacodyL 5 MG TABLET.DR 10 MG PO (07:52)
== END 2021-04-11 08:20 | disposition home or self-care (01) ==
PROVIDERS: Emergency Provider Internal Medicine
DX: K59.04 Chronic idiopathic constipation (principal); I69.30 Unspecified sequelae of cerebral infarction; Z87.820 Personal history of traumatic brain injury
CPT/HCPCS: 99282; 99283; 99284

== ENCOUNTER 2021-04-21 08:09 | Emergency (ER) | payer MEDICARE, MEDICAID, SELFPAY ==
[2021-04-21 08:18] VITALS: BP 160/83; BP 210/90; PULSE 68; PULSE 92; RESP 20; TEMP 36.5; O2SAT 100; O2SAT 97; BMI 34.4
--- NOTE | 2021-04-21 08:25 | ED_ITS ---
HPI - Seizure General Chief Complaint: Seizure Stated Complaint: SEIZURE,AWAKE & ALERT @ THIS TIME,HX OF SZ Time Seen by Provider: 04/21/21 08:22 Source: patient Mode of arrival: EMS History of Present Illness HPI Narrative: This is a 55 years old male with history of TBI, seizure disorder, CVA, presented to emergency room by ambulance after a seizure, your I have awake alert oriented x3 complaint: seizure Onset (ago): hour(s) (1) Witnessed: No Trauma: No Possible Precipitating Event: none Associated symptoms: denies other symptoms Related Data Previous Rx's Medication Instructions Recorded magnesium citrate 37.5 ml PO BID PRN #296 ml 06/06/20 sennosides 8.6 mg capsule (senna) 8.6 mg PO BEDTIME PRN #30 cap 06/06/20 phenytoin sodium extended 100 mg 100 mg PO BID #60 cap 11/13/20 capsule (Dilantin Extended) neomycin-bacitracn Zn-polymyx 3.5 1 appl TOPICAL BID #28.3 g 11/29/20 mg-400 unit-5,000 unit/gram top oint (Neosporin (rlp-yqx-dqqwy)) polyethylene glycol 3350 17 17 g PO DAILY #510 g 04/11/21 gram/dose oral powder (Miralax) Allergies Allergy/AdvReac Type Severity Reaction Status Date / Time No Known Allergies Allergy Unverified 05/10/20 17:06 [No Known Allergies*] Review of Systems Review of Systems: Yes all other systems are reviewed and are negative Cardiovascular: Cardiovascular: Denies dyspnea and Denies dyspnea on exertion Respiratory: Respiratory: Denies cough, Denies hemoptysis, Denies dyspnea and Denies dyspnea on exertion Gastrointestinal: Gastrointestinal: Denies diarrhea, Denies loose stools and Denies vomiting Neurologic: Reports system reviewed and no additional complaints, except as documented PMFSH Past Medical History Medical History Seizure disorder TBI (traumatic brain injury) Social History Social History Alcohol intake: never Smoked in Last 30 Days: No Use of substances other than those prescribed or required for medical reasons: No Advance Directives: Yes Advance Directives Information Provided: Yes Advance Directives on File: No Physical Exam Vital Signs: Vital Signs: Last Vital Signs Temp 97.7 F 04/21/21 08:18 Pulse 91 04/21/21 10:24 Resp 22 H 04/21/21 10:24 BP 136/81 04/21/21 10:24 Pulse Ox 95 04/21/21 10:24 Body Mass Index 34.4 Const: General: cooperative, comfortable, no acute distress and well developed Nutritional Appearance: average body habitus Orientation/consciousness: oriented to person, oriented to place, oriented to time and patient oriented x3 HENMT: Head: Yes normal to inspection and Yes normocephalic Mouth: Normal oral and palatal mucosa present Neck: Neck: Yes normal visual inspection, Yes full ROM and Yes no lymphadenopathy Chest: Chest palpation & inspection: normal inspection of the chest Resp: Effort & Inspection: normal respiratory effort and able to speak in complete sentences Auscultation: clear to auscultation bilaterally Cardio: Jugular venous distension: no JVD Rate: regular rate Rhythm: regular rhythm GI: Inspection: Yes normal to inspection Palpation (GI): Soft to palpation, not firm, nontender and no guarding Skin: General skin exam: no rashes or lesions noted, elasticity normal and turgor normal Neuro: General: oriented to person, oriented to place, oriented to time and patient oriented x3 Course Reevaluation(s) Reevaluation #1: REMAIN STABLE, DILANTIN LEVEL IS UNDETECTABLE, WE WILL LOAD HIM WITH DILANTIN IV DISCHARGE HIM HOME. I TOLD THE PATIENT TO TAKE HIS DILANTIN PRESCRIBED MDM - Seizure Lab Data Attestation: I reviewed the patient's lab results. Result diagrams: 04/21/21 09:07 04/21/21 09:07 Labs: Lab Results 04/21/21 04/21/21 Range/Units 09:07 09:07 WBC 9.8 (4.8-10.8) X10*3/uL RBC 5.17 (4.60-5.80) X10*6/uL Hgb 15.5 (14.0-18.0) g/dl Hct 49.1 (42-52) % MCV 95.0 (80-98) fL MCH 30.0 (27.0-33.0) pg MCHC 31.6 (31.0-36.0) g/dl RDW 12.2 (11.0-16.0) % Plt Count 294 (160-400) X10*3/uL MPV 8.3 L (9.4-12.4) fL Immature Gran % (Auto) 0.1 (0.0-0.4) % Neut % (Auto) 67.2 (45-73) % Lymph % (Auto) 14.9 L (20-40) % [place] % (Auto) 11.6 H (2-11) % Eos % (Auto) 5.6 H (0-4) % Baso % (Auto) 0.6 (0-2) % Lymph # (Auto) 1.5 (1.2-4.9) X10*3/uL [place] # (Auto) 1.1 (0.1-1.2) X10*3/uL Eos # (Auto) 0.6 H (0.0-0.4) X10*3/uL Baso # (Auto) 0.1 (0.0-0.2) X10*3/uL Abs Immat Gran (auto) 0.01 (0.00-0.03) X10*3/uL Absolute Neuts (auto) 6.6 (2.0-8.3) X10*3/uL Absolute Nucleated RBC 0.000 (0.0-0.012) X10*3/uL Nucleated RBC % (auto) 0.0 (0.0-0.2) /100WBC Sodium 144 (135-145) mmol/L Potassium 4.5 (3.3-5.1) mmol/L Chloride 103 (96-108) mmol/L Carbon Dioxide 33 H (22-29) mmol/L Anion Gap 13 (12-20) BUN 20 H (9-16) mg/dL Creatinine 0.97 (0.5-1.4) mg/dL Estim Creat Clear Calc 89.6 Estimated GFR > 60 Random Glucose 90 (60-115) mg/dL Calcium 10.2 D (8.4-10.2) mg/dL Total Bilirubin 0.6 (0.0-1.0) mg/dL Direct Bilirubin 0.2 (0.0-0.5) mg/dL AST 13 (5-37) U/L ALT 12 (0-40) U/L Alkaline Phosphatase 87 (39-117) U/L Total Protein 7.2 (6.5-8.0) g/dL Albumin 4.1 (3.5-5.0) g/dL Phenytoin < 0.5 L* (10.0-20.0) ug/mL Discharge Plan Discharge Clinical Impression: Seizure, Subtherapeutic serum dilantin level Patient Disposition: Home, Self-Care Instructions: Epilepsy (ED) Additional Instructions: MAKE SURE YOU TAKE YOUR DILANTIN, FOLLOW-UP WITH PRIMARY CARE PHYSICIAN TOMORROW Prescriptions: No Action senna 8.6 mg capsule 8.6 mg PO BEDTIME PRN (Reason: constipation) Qty: 30 RF: 0 magnesium citrate Solution 37.5 ml PO BID PRN (Reason: constipation) Qty: 296 RF: 0 phenytoin sodium extended [Dilantin Extended] 100 mg capsule 100 mg PO BID Qty: 60 RF: 0 Neosporin (ram-vun-ndeze) 3.5mg-400 unit- 5,000 unit/gram ointment 1 appl topical BID Qty: 28.3 RF: 0 polyethylene glycol 3350 [Miralax] 17 gram/dose powder 17 g PO DAILY Qty: 510 RF: 0 Referrals: Physician,Unknown [Primary Care Provider] - 2 days
[2021-04-21] MEDS: LORazepam 1 MG TABLET PO (08:37)
[2021-04-21 09:12] LABS: Basophils Absolute Auto 0.1 X10*3/uL (0.0-0.2); Basophils Percent Auto 0.6 % (0-2); Eosinophils Absolute Auto 0.6 X10*3/uL (0.0-0.4); Eosinophils Percent Auto 5.6 % (0-4); Hematocrit 49.1 % (42-52); Hemoglobin 15.5 g/dl (14.0-18.0); Imm Gran Abs Auto 0.01 X10*3/uL (0.00-0.03); Imm Gran Pct Auto 0.1 % (0.0-0.4); Lymphocytes Absolute Auto 1.5 X10*3/uL (1.2-4.9); Lymphocytes Percent Auto 14.9 % (20-40); Mean Corpuscular HGB Conc 31.6 g/dl (31.0-36.0); Mean Platelet Volume 8.3 fL (9.4-12.4); Monocytes Absolute Auto 1.1 X10*3/uL (0.1-1.2); Monocytes Percent Auto 11.6 % (2-11); Neutrophils Absolute Auto 6.6 X10*3/uL (2.0-8.3); Neutrophils Percent Auto 67.2 % (45-73); Platelet Count 294 X10*3/uL (160-400); Red Blood Count 5.17 X10*6/uL (4.60-5.80); Red Cell Distribution Width 12.2 % (11.0-16.0); White Blood Count 9.8 X10*3/uL (4.8-10.8)
[2021-04-21 09:36] LABS: Alanine Aminotransferase 12 U/L (0-40); Albumin Level 4.1 g/dL (3.5-5.0); Alkaline Phosphatase 87 U/L (39-117); Anion Gap 13 (12-20); Aspartate Amino Transferase 13 U/L (5-37); Bilirubin Direct 0.2 mg/dL (0.0-0.5); Bilirubin Total 0.6 mg/dL (0.0-1.0); Blood Urea Nitrogen 20 mg/dL (9-16); Calcium 10.2 mg/dL (8.4-10.2); Carbon Dioxide 33 mmol/L (22-29); Chloride 103 mmol/L (96-108); Creatinine Clr Calc Pharmacy 89.6; Estimated Glomerular Filt Rate > 60; Glucose Random 90 mg/dL (60-115); Potassium 4.5 mmol/L (3.3-5.1); Sodium 144 mmol/L (135-145); Total Protein 7.2 g/dL (6.5-8.0)
[2021-04-21 09:55] LABS: Phenytoin Dilantin < 0.5 ug/mL (10.0-20.0)
[2021-04-21 10:24] VITALS: BP 136/81; PULSE 91; RESP 22; O2SAT 95
== END 2021-04-21 13:09 | disposition home or self-care (01) ==
PROVIDERS: Emergency Provider Emergency Medicine
DX: R56.9 Unspecified convulsions (principal); Z79.899 Other long term (current) drug therapy
CPT/HCPCS: 36415; 80048; 80076; 80185; 85025; 96365; 99284

== ENCOUNTER 2021-07-17 15:04 | Emergency (ER) | payer MEDICARE, MEDICAID, SELFPAY ==
--- NOTE | ~2021-07-17 | CT_ITS ---
EXAMINATION: CT BRAIN AND CT CERVICAL SPINE WITHOUT CONTRAST. CLINICAL INFORMATION: Seizures. COMPARISON: None TECHNIQUE: 5 minutes thin axial and reformatted 2 mm thin sagittal coronal images of brain were obtained without contrast. Subsequently axial 3 mm thin and reformatted 2 mm thin sagittal and coronal images of cervical spine were obtained without contrast. DLP [id number]. FINDINGS: Brain: There is no acute intra-axial, extra-axial bleed, masses or collection. There is no midline shift. There is no acute infarction evolution. The lateral ventricles are symmetrical in size and configuration without enlargement. Bone windows reveal no calvarial abnormality. There is no scalp soft tissue abnormality. Bilateral paranasal sinuses and mastoid air cells are well-aerated. Cervical spine: There is mild straightening of cervical lordosis. The vertebral alignment is normal. There is grade 1 anterolisthesis C4 over C5. Rest of the vertebral alignment is normal. There is loss of C4-C5, C5-C6, C6-C7 and C7-T1 disc heights with moderate ventral spondylosis. There is moderate right C4-C5, C5-C6 and left C7-T1 facet joint arthropathy. There is moderate right C4-C5 hypertrophic changes with neural foraminal narrowing. No lytic or sclerotic process seen. The craniovertebral junction is normal. The prevertebral and paravertebral soft tissues are normal. CT/CT cervical spine wo con IMPRESSION: No acute intracranial process seen. There is no acute fracture or dislocation in cervical spine. There are degenerative arthritic changes as described above.
--- NOTE | ~2021-07-17 | CT_ITS ---
EXAMINATION: CT BRAIN AND CT CERVICAL SPINE WITHOUT CONTRAST. CLINICAL INFORMATION: Seizures. COMPARISON: None TECHNIQUE: 5 minutes thin axial and reformatted 2 mm thin sagittal coronal images of brain were obtained without contrast. Subsequently axial 3 mm thin and reformatted 2 mm thin sagittal and coronal images of cervical spine were obtained without contrast. DLP 1474. FINDINGS: Brain: There is no acute intra-axial, extra-axial bleed, masses or collection. There is no midline shift. There is no acute infarction evolution. The lateral ventricles are symmetrical in size and configuration without enlargement. Bone windows reveal no calvarial abnormality. There is no scalp soft tissue abnormality. Bilateral paranasal sinuses and mastoid air cells are well-aerated. Cervical spine: There is mild straightening of cervical lordosis. The vertebral alignment is normal. There is grade 1 anterolisthesis C4 over C5. Rest of the vertebral alignment is normal. There is loss of C4-C5, C5-C6, C6-C7 and C7-T1 disc heights with moderate ventral spondylosis. There is moderate right C4-C5, C5-C6 and left C7-T1 facet joint arthropathy. There is moderate right C4-C5 hypertrophic changes with neural foraminal narrowing. No lytic or sclerotic process seen. The craniovertebral junction is normal. The prevertebral and paravertebral soft tissues are normal. CT/CT head/brain wo con IMPRESSION: No acute intracranial process seen. There is no acute fracture or dislocation in cervical spine. There are degenerative arthritic changes as described above.
[2021-07-17 15:25] VITALS: BP 143/96; BP 150/93; PULSE 104; PULSE 99; RESP 16; TEMP 36.8; O2SAT 96; O2SAT 98; BMI 30.4
[2021-07-17] MEDS: 0.9 % Sodium Chloride 1,000 ML 999 ML IV (15:55)
[2021-07-17 15:56] VITALS: RESP 16
[2021-07-17 16:02] LABS: MANUAL DIFF FLAG NO
[2021-07-17 16:04] LABS: Basophils Absolute Auto 0.1 X10*3/uL (0.0-0.2); Basophils Percent Auto 0.7 % (0-2); Eosinophils Absolute Auto 0.6 X10*3/uL (0.0-0.4); Eosinophils Percent Auto 6.3 % (0-4); Hematocrit 46.1 % (42.0-52.0); Hemoglobin 15.1 g/dl (14.0-18.0); Imm Gran Abs Auto 0.03 X10*3/uL (0.00-0.03); Imm Gran Pct Auto 0.3 % (0.0-0.4); Lymphocytes Absolute Auto 1.5 X10*3/uL (1.2-4.9); Lymphocytes Percent Auto 15.8 % (20-40); Mean Corpuscular HGB Conc 32.8 g/dl (31.0-36.0); Mean Corpuscular Hemoglobin 30.6 pg (27.0-33.0); Mean Corpuscular Volume 93.3 fL (80.0-98.0); Monocytes Absolute Auto 1.1 X10*3/uL (0.1-1.2); Monocytes Percent Auto 11.7 % (2-11); Neutrophils Absolute Auto 6.2 x10*3/uL (2.0-8.3); Neutrophils Percent Auto 65.2 % (45-73); Platelet Count 301 X10*3/uL (160-400); Red Blood Count 4.94 X10*6/uL (4.60-5.80); White Blood Count 9.5 X10*3/uL (4.8-10.8)
[2021-07-17 16:19] LABS: Alanine Aminotransferase 15 U/L (0-40); Albumin Level 3.7 g/dL (3.5-5.0); Alkaline Phosphatase 77 U/L (39-117); Anion Gap 12 (12-20); Aspartate Amino Transferase 16 U/L (5-37); Bilirubin Direct < 0.2 mg/dL (0.0-0.5); Bilirubin Total 0.3 mg/dL (0.0-1.0); Blood Urea Nitrogen 17 mg/dL (9-16); Calcium 9.1 mg/dL (8.4-10.2); Carbon Dioxide 27 mmol/L (22-29); Chloride 102 mmol/L (96-108); Creatinine Clr Calc Pharmacy 93.8; Estimated Glomerular Filt Rate > 60; Glucose Random 115 mg/dL (60-115); Potassium 4.3 mmol/L (3.3-5.1); Sodium 137 mmol/L (135-145); Total Protein 6.7 g/dL (6.5-8.0)
[2021-07-17 16:27] LABS: Phenytoin Dilantin < 0.5 ug/mL (10.0-20.0)
[2021-07-17 16:39] VITALS: BP 157/86; PULSE 90; RESP 16; TEMP 37.2; O2SAT 98
[2021-07-17 16:53] LABS: Appearance Urine CLEAR; Color Urine YELLOW; Glucose Urine UA NEG (NEG); Leukocyte Esterase Urine NEG (NEG); Nitrite Urine NEG (NEG); Specific Gravity - Urine 1.015 (1.005-1.025); UACC Culture Trigger NO; Urine Blood TRACE (NEG); Urine Ketones NEG (NEG); Urine Protein NEG (NEG-TRACE)
[2021-07-17 17:03] LABS: Amphetamine Screen Urine Not Detected (Not Detect); Barbiturates, Urine Not Detected (Not Detect); Benzodiazepines Screen Urine Not Detected (Not Detect); Cannabinoid Screen Urine Not Detected (Not Detect); Cocaine Screen Urine Not Detected (Not Detect); Fentanyl, urine Not Detected (Not Detect); Opiate Screen Urine Not Detected (Not Detect); Phencyclidine Screen Urine Not Detected (Not Detect)
[2021-07-17 17:20] LABS: RBC Urine 0-2 /HPF (0); Squamous Epithelial Cell Urine TRACE /LPF; WBC Urine 0-2 /HPF (0-4)
[2021-07-17] MEDS: Phenytoin Sodium Extended 100 MG CAPSULE 300 MG PO (17:47)
--- NOTE | 2021-07-17 17:52 | ED_ITS ---
HPI - Seizure General Chief Complaint: Seizure Stated Complaint: seizure Time Seen by Provider: 07/17/21 17:16 Source: patient Mode of arrival: ambulatory Limitations: no limitations History of Present Illness HPI Narrative: Patient presents to the ED for seizure. Patient had witnessed seizure at [facility]. Patient's history of seizure. Patient was was postictal as per EMS but then came to himself and now alert oriented x3. Patient states no fever, chills, chest pain, shortness of breath, headache bef ore having seizure. Patient apparently has no physical complaints. Seizure History: Yes Related Data Previous Rx's Medication Instructions Recorded magnesium citrate 37.5 ml PO BID PRN #296 ml 06/06/20 sennosides 8.6 mg capsule (senna) 8.6 mg PO BEDTIME PRN #30 cap 06/06/20 phenytoin sodium extended 100 mg 100 mg PO BID #60 cap 11/13/20 capsule (Dilantin Extended) neomycin-bacitracn Zn-polymyx 3.5 1 appl TOPICAL BID #28.3 g 11/29/20 mg-400 unit-5,000 unit/gram top oint (Neosporin ([id number])) polyethylene glycol 3350 17 17 g PO DAILY #510 g 04/11/21 gram/dose oral powder (Miralax) Allergies Allergy/AdvReac Type Severity Reaction Status Date / Time No Known Allergies Allergy Unverified 05/10/20 17:06 [No Known Allergies*] Review of Systems Review of Systems: Yes all other systems are reviewed and are negative Constitutional: Constitutional: Reports as per HPI and Reports no additional constitutional complaints Eyes: Eyes: Reports as per HPI and Reports no additional eye complaints ENT: Reports system reviewed and no additional complaints, except as documented and Reports as per HPI Cardiovascular: Cardiovascular: Reports as per HPI and Reports no additional cardiovascular complaints Respiratory: Respiratory: Reports as per HPI and Reports no additional respiratory complaints Gastrointestinal: Gastrointestinal: Reports as per HPI and Reports no ad ditional gastrointestinal complaints Genitourinary: Genitourinary: Reports no additional male genitourinary complaints and Reports as per HPI Musculoskeletal: Musculoskeletal: Reports no additional musculoskeletal complaints and Reports as per HPI Integumentary/Breasts: Skin/Breast: Reports system reviewed and no additional complaints, except as docu and Reports as per HPI Neurologic: Reports system reviewed and no additional complaints, except as documented and Reports as per HPI Comments: Seizure Psychiatric: Psychiatric: Reports no additional psychiatric complaints and Reports as per HPI Endocrine: Endocrine: Reports no additional endocrine complaints and Reports as per HPI [facility] Past Medical History Medical History Seizure disorder TBI (traumatic brain injury) Social History Social History Alcohol intake: never Advance Directives: No Advance Directives Information Provided: Yes Physical Exam Vital Signs: Vital Signs: Last Vital Signs Temp 98.9 F 07/17/21 16:39 Pulse 90 07/17/21 16:39 Resp 16 07/17/21 16:39 BP 157/86 H 07/17/21 16:39 Pulse Ox 98 07/17/21 16:39 Body Mass Index 30.4 Const: General: cooperative, healthy appearing, comfortable, no acute dist ress, well developed, alert, awake and Physically active Orientation/consciousness: patient oriented x3 HENMT: Head: Yes normal to inspection, Yes No palpable skull fracture present, Yes normocephalic and Yes abrasion (Small facial abrasion) Eyes: General: appearance normal, both eyes and all related structures Neck: Neck: Yes normal visual inspection, Yes full ROM, Yes no lymphadenopathy, Yes no meningeal signs, Yes trachea midline, Yes supple, No anterior neck swelling and No tender Chest: Chest palpation & inspection: normal inspection of the chest and normal palpation of entire chest wall Resp: Effort & Inspection: normal respiratory effort and able to speak in complete sentences Auscultation: clear to auscultation bilaterally Cardio: Jugular venous distension: no JVD Heart sounds: S1 normal heart sound present and S2 normal heart sound present GI: Inspection: Yes normal to inspection and No abdominal wall ecchymosis Palpation (GI): Soft to palpation, not firm, nontender, no guarding and not rig id : General: No CVA tenderness and Yes no CVA tenderness Back/Spine/Pelvis: Back: no CVA tenderness, No CVA tenderness and No back tenderness Skin: General skin exam: no rashes or lesions noted and elasticity normal Neuro: General: patient oriented x3, gait normal, no meningeal signs and CN's II-XI intact bilaterally Cranial nerves: Yes CN's II-XII intact bilaterally Extrem: General: Yes normal to inspection and Yes full ROM Psych: Appearance: grossly normal, well kempt and not disheveled Course Course Course Narrative: Patient will have medical workup such as head CT, labs, UA, and cervical CT. Reevaluation(s) Reevaluation #1: Patient labs are normal except Dilantin which is low. Head CT and cervical spine normal. Kidney function normal. UA negative for drugs. Patient denies any history of alcohol abuse. Patient claims he is compliant with Dilantin. Dilantin level is low. Patient given initial 300 mg of Dilantin. Patient informed Primary care provider should adjust Dilantin mg dosage. Patient presently is alert oriented x3. Negative for any neuro deficits. Patient is safe for discharge Time: 17:57 MDM - Seizure MDM Narrative Medical decision making narrative: Seizure Lab Data Result diagrams: 07/17/21 15:54 07/17/21 15:54 Labs: Lab Results 07/17/21 07/17/21 07/17/21 Range/Units 15:54 15:54 16:42 WBC 9.5 (4.8-10.8) X10*3/uL RBC 4.94 (4.60-5.80) X10*6/uL Hgb 15.1 (14.0-18.0) g/dl Hct 46.1 (42.0-52.0) % MCV 93.3 (80.0-98.0) fL MCH 30.6 (27.0-33.0) pg MCHC 32.8 (31.0-36.0) g/dl RDW 12.0 (11.0-16.0) % Plt Count 301 (160-400) X10*3/uL MPV 8.0 L (9.4-12.4) fL Immature Gran % (Auto) 0.3 (0.0-0.4) % Neut % (Auto) 65.2 (45-73) % Lymph % (Auto) 15.8 L (20-40) % Island % (Auto) 11.7 H (2-11) % Eos % (Auto) 6.3 H (0-4) % Baso % (Auto) 0.7 (0-2) % Lymph # (Auto) 1.5 (1.2-4.9) X10*3/uL Island # (Auto) 1.1 (0.1-1.2) X10*3/uL Eos # (Auto) 0.6 H (0.0-0.4) X10*3/uL Baso # (Auto) 0.1 (0.0-0.2) X10*3/uL Abs Immat Gran (auto) 0.03 (0.00-0.03) X10*3/uL Absolute Neuts (auto) 6.2 (2.0-8.3) x10*3/uL Absolute Nucleated RBC 0.000 (0.0-0.012) X10*3/uL Nucleated RBC % (auto) 0.0 (0.0-0.2) /100WBC Sodium 137 (135-145) mmol/L Potassium 4.3 (3.3-5.1) mmol/L Chloride 102 (96-108) mmol/L Carbon Dioxide 27 (22-29) mmol/L Anion Gap 12 (12-20) BUN 17 H (9-16) mg/dL Creatinine 0.95 (0.5-1.4) mg/dL Estim Creat Clear Calc 93.8 Estimated GFR > 60 Random Glucose 115 (60-115) mg/dL Calcium 9.1 D (8.4-10.2) mg/dL Magnesium 2.0 (1.6-2.6) mg/dL Total Bilirubin 0.3 (0.0-1.0) mg/dL Direct Bilirubin < 0.2 (0.0-0.5) mg/dL AST 16 (5-37) U/L ALT 15 (0-40) U/L Alkaline Phosphatase 77 (39-117) U/L Total Protein 6.7 (6.5-8.0) g/dL Albumin 3.7 (3.5-5.0) g/dL Urine Color YELLOW Urine Appearance CLEAR Urine pH 6.0 (5.0-8.0) Ur Specific [place] 1.015 (1.005-1.025) Urine Protein NEG (NEG-TRACE) MG/DL Urine Glucose (UA) NEG (NEG) MG/DL Urine Ketones NEG (NEG) MG/DL Urine Blood TRACE (NEG) Urine Nitrite NEG (NEG) Ur Leukocyte Esterase NEG (NEG) Urine RBC 0-2 (0) /HPF Urine WBC 0-2 (0-4) /HPF Ur Squamous Epith Cells TRACE /LPF Urine Bacteria NONE /LPF Urine Opiates Screen (Not Detect) Urine Fentanyl Screen (Not Detect) Ur Barbiturates Screen (Not Detect) Phenytoin < 0.5 L* (10.0-20.0) ug/mL Ur Phencyclidine Scrn (Not Detect) Ur Amphetamines Screen (Not Detect) U Benzodiazepines Scrn (Not Detect) Urine Cocaine Screen (Not Detect) U Marijuana (THC) Screen (Not Detect) 07/17/21 Range/Units 16:42 WBC (4.8-10.8) X10*3/uL RBC (4.60-5.80) X10*6/uL Hgb (14.0-18.0) g/dl Hct (42.0-52.0) % MCV (80.0-98.0) fL MCH (27.0-33.0) pg MCHC (31.0-36.0) g/dl RDW (11.0-16.0) % Plt Count (160-400) X10*3/uL MPV (9.4-12.4) fL Immature Gran % (Auto) (0.0-0.4) % Neut % (Auto) (45-73) % Lymph % (Auto) (20-40) % Island % (Auto) (2-11) % Eos % (Auto) (0-4) % Baso % (Auto) (0-2) % Lymph # (Auto) (1.2-4.9) X10*3/uL Island # (Auto) (0.1-1.2) X10*3/uL Eos # (Auto) (0.0-0.4) X10*3/uL Baso # (Auto) (0.0-0.2) X10*3/uL Abs Immat Gran (auto) (0.00-0.03) X10*3/uL Absolute Neuts (auto) (2.0-8.3) x10*3/uL Absolute Nucleated RBC (0.0-0.012) X10*3/uL Nucleated RBC % (auto) (0.0-0.2) /100WBC Sodium (135-145) mmol/L Potassium (3.3-5.1) mmol/L Chloride (96-108) mmol/L Carbon Dioxide (22-29) mmol/L Anion Gap (12-20) BUN (9-16) mg/dL Creatinine (0.5-1.4) mg/dL Estim Creat Clear Calc Estimated GFR Random Glucose (60-115) mg/dL Calcium (8.4-10.2) mg/dL Magnesium (1.6-2.6) mg/dL Total Bilirubin (0.0-1.0) mg/dL Direct Bilirubin (0.0-0.5) mg/dL AST (5-37) U/L ALT (0-40) U/L Alkaline Phosphatase (39-117) U/L Total Protein (6.5-8.0) g/dL Albumin (3.5-5.0) g/dL Urine Color Urine Appearance Urine pH (5.0-8.0) Ur Specific [place] (1.005-1.025) Urine Protein (NEG-TRACE) MG/DL Urine Glucose (UA) (NEG) MG/DL Urine Ketones (NEG) MG/DL Urine Blood (NEG) Urine Nitrite (NEG) Ur Leukocyte Esterase (NEG) Urine RBC (0) /HPF Urine WBC (0-4) /HPF Ur Squamous Epith Cells /LPF Urine Bacteria /LPF Urine Opiates Screen Not Detected (Not Detect) Urine Fentanyl Screen Not Detected (Not Detect) Ur Barbiturates Screen Not Detected (Not Detect) Phenytoin (10.0-20.0) ug/mL Ur Phencyclidine Scrn Not Detected (Not Detect) Ur Amphetamines Screen Not Detected (Not Detect) U Benzodiazepines Scrn Not Detected (Not Detect) Urine Cocaine Screen Not Detected (Not Detect) U Marijuana (THC) Screen Not Detected (Not Detect) Discharge Plan Discharge Clinical Impression: Seizure disorder Patient Disposition: Home, Self-Care Instructions: Recurrent Seizures in Adults (ED) Additional Instructions: Your blood work and imaging came back normal. Your Dilantin levels came back low. You were given Dilantin in the ED. Please follow-up with your neurologist/primary care provider to adjust her Dilantin medication to increase levels in the blood. Return to the ED for slurred speech, loss of vision, paralysis of extremities, headache, other seizure, weakness, dizziness, altered mental status, or any other concerning symptoms. Prescriptions: No Action senna 8.6 mg capsule 8.6 mg PO BEDTIME PRN (Reason: constipation) Qty: 30 RF: 0 magnesium citrate Solution 37.5 ml PO BID PRN (Reason: constipation) Qty: 296 RF: 0 phenytoin sodium extended [Dilantin Extended] 100 mg capsule 100 mg PO BID Qty: 60 RF: 0 Neosporin ([id number]-ftx-juezd) 3.5mg-400 unit- 5,000 unit/gram ointment 1 appl topical BID Qty: 28.3 RF: 0 polyethylene glycol 3350 [Miralax] 17 gram/dose powder 17 g PO DAILY Qty: 510 RF: 0 Print Language: Ukrainian
[2021-07-17 19:19] VITALS: BP 175/92; PULSE 99; RESP 16; O2SAT 95
--- NOTE | 2021-07-17 19:25 | PC.NURSE ---
Pt aaox4, resting on stretcher in NAD, breathing with ease on RA with skin warm dry and normal in appearance for age and race. Pt denies pain/discomfort. Pt awaiting transport home at this time. IVF continue to infuse at this time. PIV to be removed prior to transport home upon completion of bolus. Stretcher low locked, rails raised, pt remains visible to staff.
== END 2021-07-17 22:20 | disposition home or self-care (01) ==
PROVIDERS: Physician Assistant; Emergency Provider Emergency Medicine
DX: G40.909 Epilepsy, unspecified, not intractable, without status epilepticus (principal); Z87.820 Personal history of traumatic brain injury; Z86.73 Personal history of transient ischemic attack (TIA), and cerebral infarction without residual deficits
CPT/HCPCS: 36415; 70450; 72125; 80053; 80185; 80307; 81001; 82248; 83735; 85025; 96360; 99284

== ENCOUNTER 2021-07-29 11:04 | Emergency (ER) | payer MEDICARE, MEDICAID, SELFPAY ==
--- NOTE | 2021-07-29 11:22 | ED_ITS ---
HPI - Seizure General Chief Complaint: Seizure Stated Complaint: WIT SZ W/HEAD STRIKE FOREHEAD LAC Time Seen by Provider: 07/29/21 11:21 Source: patient Mode of arrival: ambulatory Limitations: no limitations History of Present Illness HPI Narrative: Patient states that he gets a seizure once a week. Patient had a [facility] the [facility]. complaint: seizure Onset (ago): minute(s) Description of Episode: tonic-clonic movement -: minutes(s) Witnessed: Yes - by Bystander Trauma: Yes Seizure History: Yes Place: Home Possible Precipitating Event: none Associated symptoms: denies other symptoms Related Data Previous Rx's Medication Instructions Recorded magnesium citrate 37.5 ml PO BID PRN #296 ml 06/06/20 sennosides 8.6 mg capsule (senna) 8.6 mg PO BEDTIME PRN #30 cap 06/06/20 phenytoin sodium extended 100 mg 100 mg PO BID #60 cap 11/13/20 capsule (Dilantin Extended) neomycin-bacitracn Zn-polymyx 3.5 1 appl TOPICAL BID #28.3 g 11/29/20 mg-400 unit-5,000 unit/gram top oint (Neosporin ([id number])) polyethylene glycol 3350 17 17 g PO DAILY #510 g 04/11/21 gram/dose oral powder (Miralax) Allergies Allergy/AdvReac Type Severity Reaction Status Date / Time No Known Allergies Allergy Unverified 05/10/20 17:06 [No Known Allergies*] Review of Systems Constitutional: Constitutional: Reports no additional constitutional com plaints Eyes: Eyes: Reports no additional eye complaints ENT: Denies dizziness Cardiovascular: Cardiovascular: Reports no additional cardiovascular complaints Respiratory: Respiratory: Reports as per HPI Gastrointestinal: Gastrointestinal: Reports no additional gastrointestinal complaints Musculoskeletal: Musculoskeletal: Reports no additional musculoskeletal complaints Integumentary/Breasts: Skin/Breast: Denies rash Neurologic: Reports system reviewed and no additional complaints, except as documented, Denies dizziness and Denies Sensory deficit (Neuro) Psychiatric: Psychiatric: Denies anxiety PMFSH Past Medical History Medical History Seizure disorder TBI (traumatic brain injury) Social History Social History Alcohol intake: never Advance Directives: Yes Advance Directives on File: Yes Advance Directives Date on File: 11/29/20 Physical Exam Vital Signs: Vital Signs: Last Vital Signs Temp 98.5 F 07/29/21 11:26 Pulse 95 07/29/21 11:26 Resp 18 07/29/21 11:26 BP 150/87 H 07/29/21 11:26 Pulse Ox 95 07/29/21 11:26 BMI result Body Mass Index 32.8 Const: General: healthy appearing Nutritional Appearance: average body chong bitus Orientation/consciousness: oriented to person and patient oriented x3 Limitations: no limitations HENMT: Head: Yes normal to inspection Ears: external ears normal General nose exam: Normal external nose present Mouth: Normal oral and palatal mucosa present and oropharynx normal Throat: Yes posterior oropharynx normal Eyes: General: appearance normal, both eyes and all related structures Neck: Other: supple Neck: Yes normal visual inspection Chest: Chest palpation & inspection: normal inspection of the chest Resp: Auscultation: clear to auscultation bilaterally Cardio: Jugular venous distension: no JVD Rate: regular rate Rhythm: regular rhythm Heart sounds: S1 normal heart sound present and S2 normal heart sound present GI: Inspection: Yes normal to inspection Palpation (GI): Soft to palpation, nontender and No hepatosplenomegaly present Auscultation: normal bowel sounds : General: Yes no CVA tenderness Back/Spine/Pelvis: Back: no CVA tenderness Skin: Other: abrasion to right eyebrow and right forehead Neuro: General: oriented to person and patient oriented x3 Cranial nerves: Yes CN's II-XII intact bilaterally Motor exam (neuro): 5/5 motor strength present throughout Sensory Exam: No Sensory deficit (Neuro) Extrem: General: Yes normal to inspection Psych: Appearance: grossly normal Course Reevaluation(s) Reevaluation #1: no further seizures, patient loaded with Dilantin as he was subtherapeutic, will dc on dilantin Time: 14:13 MDM - Seizure Lab Data Result diagrams: 07/29/21 12:11 07/29/21 12:11 Labs: Lab Results 07/29/21 07/29/21 Range/Units 12:11 12:11 WBC 10.6 (4.8-10.8) X10*3/uL RBC 5.33 (4.60-5.80) X10*6/uL Hgb 16.0 (14.0-18.0) g/dl Hct 50.5 (42.0-52.0) % MCV 94.7 (80.0-98.0) fL MCH 30.0 (27.0-33.0) pg MCHC 31.7 (31.0-36.0) g/dl RDW 12.0 (11.0-16.0) % Plt Count 269 (160-400) X10*3/uL MPV 8.2 L (9.4-12.4) fL Immature Gran % (Auto) 0.2 (0.0-0.4) % Neut % (Auto) 71.0 (45-73) % Lymph % (Auto) 12.1 L (20-40) % [place] % (Auto) 9.0 (2-11) % Eos % (Auto) 6.9 H (0-4) % Baso % (Auto) 0.8 (0-2) % Lymph # (Auto) 1.3 (1.2-4.9) X10*3/uL [place] # (Auto) 1.0 (0.1-1.2) X10*3/uL Eos # (Auto) 0.7 H (0.0-0.4) X10*3/uL Baso # (Auto) 0.1 (0.0-0.2) X10*3/uL Abs Immat Gran (auto) 0.02 (0.00-0.03) X10*3/uL Absolute Neuts (auto) 7.5 (2.0-8.3) x10*3/uL Absolute Nucleated RBC 0.000 (0.0-0.012) X10*3/uL Nucleated RBC % (auto) 0.0 (0.0-0.2) /100WBC Sodium 141 (135-145) mmol/L Potassium 4.8 (3.3-5.1) mmol/L Chloride 106 (96-108) mmol/L Carbon Dioxide 28 (22-29) mmol/L Anion Gap 12 (12-20) BUN 20 H (9-16) mg/dL Creatinine 1.00 (0.5-1.4) mg/dL Estim Creat Clear Calc 89.6 Estimated GFR > 60 Random Glucose 81 (60-115) mg/dL Calcium 9.3 (8.4-10.2) mg/dL Magnesium 2.1 (1.6-2.6) mg/dL Phenytoin < 0.5 L* (10.0-20.0) ug/mL Discharge Plan Discharge Clinical Impression: Seizure disorder, Non compliance w medication regimen Patient Disposition: Home, Self-Care Instructions: Recurrent Seizures in Adults (ED) Prescriptions: No Action senna 8.6 mg capsule 8.6 mg PO BEDTIME PRN (Reason: constipation) Qty: 30 RF: 0 magnesium citrate Solution 37.5 ml PO BID PRN (Reason: constipation) Qty: 296 RF: 0 phenytoin sodium extended [Dilantin Extended] 100 mg capsule 100 mg PO BID Qty: 60 RF: 0 Neosporin (ahf-mtx-ireow) 3.5mg-400 unit- 5,000 unit/gram ointment 1 appl topical BID Qty: 28.3 RF: 0 polyethylene glycol 3350 [Miralax] 17 gram/dose powder 17 g PO DAILY Qty: 510 RF: 0 Referrals: Physician,Unknown J [Primary Care Provider] - 5 days
[2021-07-29 11:26] VITALS: BP 143/76; BP 150/87; PULSE 95; RESP 18; TEMP 36.9; O2SAT 95; BMI 32.8
[2021-07-29 12:15] LABS: MANUAL DIFF FLAG NO
[2021-07-29 12:16] LABS: Basophils Absolute Auto 0.1 X10*3/uL (0.0-0.2); Basophils Percent Auto 0.8 % (0-2); Eosinophils Absolute Auto 0.7 X10*3/uL (0.0-0.4); Eosinophils Percent Auto 6.9 % (0-4); Hematocrit 50.5 % (42.0-52.0); Imm Gran Abs Auto 0.02 X10*3/uL (0.00-0.03); Imm Gran Pct Auto 0.2 % (0.0-0.4); Lymphocytes Absolute Auto 1.3 X10*3/uL (1.2-4.9); Lymphocytes Percent Auto 12.1 % (20-40); Mean Corpuscular HGB Conc 31.7 g/dl (31.0-36.0); Mean Corpuscular Volume 94.7 fL (80.0-98.0); Mean Platelet Volume 8.2 fL (9.4-12.4); Neutrophils Absolute Auto 7.5 x10*3/uL (2.0-8.3); Platelet Count 269 X10*3/uL (160-400); Red Blood Count 5.33 X10*6/uL (4.60-5.80); White Blood Count 10.6 X10*3/uL (4.8-10.8)
[2021-07-29 12:37] LABS: Anion Gap 12 (12-20); Blood Urea Nitrogen 20 mg/dL (9-16); Calcium 9.3 mg/dL (8.4-10.2); Carbon Dioxide 28 mmol/L (22-29); Chloride 106 mmol/L (96-108); Creatinine Clr Calc Pharmacy 89.6; Estimated Glomerular Filt Rate > 60; Glucose Random 81 mg/dL (60-115); Magnesium 2.1 mg/dL (1.6-2.6); Potassium 4.8 mmol/L (3.3-5.1); Sodium 141 mmol/L (135-145)
[2021-07-29 13:07] LABS: Phenytoin Dilantin < 0.5 ug/mL (10.0-20.0)
[2021-07-29 17:03] VITALS: BP 114/84; PULSE 103; RESP 16; O2SAT 95
== END 2021-07-29 18:02 | disposition home or self-care (01) ==
PROVIDERS: Emergency Provider Emergency Medicine
DX: G40.409 Other generalized epilepsy and epileptic syndromes, not intractable, without status epilepticus (principal); Z91.14 Patient's other noncompliance with medication regimen; Z86.73 Personal history of transient ischemic attack (TIA), and cerebral infarction without residual deficits
CPT/HCPCS: 36415; 80048; 80185; 83735; 85025; 96374; 99284

== ENCOUNTER 2021-08-03 14:03 | Emergency (ER) | payer MEDICARE, MEDICAID, SELFPAY ==
--- NOTE | ~2021-08-03 | CT_ITS ---
EXAM: CT HEAD WITHOUT CONTRAST CT CERVICAL SPINE INDICATION: Reason for Exam fall w/ head trauma TECHNIQUE: A noncontrast CT scan was performed from the skull base to the vertex. A noncontrast CT scan of the cervical spine was performed from the base of the skull through T1. Coronal and sagittal reformats were obtained at the acquisition workstation. Dose length product is 1469 mGy-cm. This CT examination was performed using dose optimization techniques as appropriate, variously including the following: *Automated exposure control *Adjustment of mA and/or kV according to patient size (this includes techniques or standardized protocols for targeted exams where dose is matched to indication/reason for exam; i.e. extremities or head) *Use of iterative reconstruction technique COMPARISON: Multiple prior studies dating back to 07/19/2018 FINDINGS: Head: No evidence of acute intracranial hemorrhage or extra-axial fluid collection. No evidence of mass lesion, mass effect or midline shift. Stable cerebellar atrophy. No acute territorial infarction. The ventricles are symmetric in configuration and normal in size. The basal cisterns are patent. The calvarium is intact. Limited views of the paranasal sinuses are unremarkable. Chronic partial mastoid air cell effusion on the right. Middle ear cavities are clear. Left mastoid air cells are well aerated. Limited views of the orbits are unremarkable. Cervical Spine: Straightening of cervical lordosis is likely due to muscular spasm versus immobilization collar. Stable grade 1 anterolisthesis C4 on C5. Facet osteoarthropathy at multiple levels, worst at the C4-C5 level. Anterior degenerative osteophytes and uncovertebral spurring throughout the cervical spine, progressed over time. Spinous processes are intact and well aligned. No prevertebral soft tissue spine. The atlantodens articulation is unremarkable. The craniocervical junction is within normal limits. Paravertebral muscular and fat planes are symmetric and intact. No cervical lymphadenopathy. Limited views of the thyroid gland are unremarkable. Limited views of the lung apices are unremarkable. CT/CT cervical spine wo con IMPRESSION: 1. Evidence of acute intracranial abnormality. 2. Degenerative changes of the cervical spine without acute fracture.
--- NOTE | 2021-08-03 14:19 | ED_ITS ---
HPI - Fall General Chief Complaint: Fall Stated Complaint: fall Time Seen by Provider: 08/03/21 14:18 Source: patient, EMS, RN notes reviewed and old records reviewed Mode of arrival: EMS Limitations: no limitations History of Present Illness HPI Narrative: 56-year-old male with history of CVA, TBI, seizure disorder with frequent breakthrough seizures who presents to the ER from home via EMS for evaluation of a witnessed seizure by his neighbors. Patient reportedly fell out of his wheelchair onto his head and face and had a tonic-clonic seizure. He sustained abrasions to his face. He does not recall the events before, during or after. He was seen here on 07/29 for the same. He is reportedly on dilantin 200 mg BID and keppra 1000 mg BID per review of his medications and claim report. He reports compliance with dilantin. No longer taking keppra because of skin issues. MD complaint: fall Onset (ago): minute(s) Fall from: wheelchair Fall witnessed: yes, by bystander Place fall occurred: home Loss of consciousness: yes Prolonged down time: no Symptoms prior to fall: none Context: seizure Location of injury: head and face Severity: mild Quality: aching Associated symptoms (after fall): denies Related Data Home Medications Medication Instructions Recorded Confirmed clonazepam 1 mg tablet 1 tab PO BEDTIME 08/03/21 08/03/21 phenytoin sodium extended 100 mg 200 mg PO BID 08/03/21 08/03/21 capsule (Dilantin Extended) Allergies Allergy/AdvReac Type Severity Reaction Status Date / Time No Known Allergies Allergy Unverified 05/10/20 17:06 [No Known Allergies*] Review of Systems Review of Systems: Constitutional: No Fever, No Chills ENT/Mouth: No sore throat, No Rhinorrhea, No Swallowing Difficulty Cardiovascular: No Chest Pain, No SOB Respiratory: No Cough, No Sputum, No Wheezing, No dyspnea Gastrointestinal: No Nausea, No Vomiting, No Diarrhea, No abdominal Pain Genitourinary: No Dysuria, No Urinary Frequency, No Hematuria Musculoskeletal: No joint pain, No Myalgias Skin: No Skin Lesions, No rash Neuro: No Weakness, No Numbness, No Dizziness, + Headache Psych: No Anxiety/Panic, No Depression Heme/Lymph: No Bruising, No Lymphadenopathy PMFSH Past Medical History Medical History Seizure disorder TBI (traumatic brain injury) Social History Social History Alcohol intake: never Advance Directives: No Advance Directives Information Provided: Yes Advance Directives Date on File: 11/29/20 Physical Exam Vital Signs: Vital Signs: Last Vital Signs Temp 98.6 F 08/03/21 16:30 Pulse 95 08/03/21 16:30 Resp 18 08/03/21 16:30 BP 148/82 H 08/03/21 16:30 Pulse Ox 95 08/03/21 16:30 BMI result Body Mass Index 28.1 Appearance: Alert. Oriented X3. No acute distress. Head: multiple superficial abrasions above right eyebrown and forehead Eyes: Pupils equal, round and reactive to light. ENT: Pharynx normal. Neck: Normal inspection. Neck supple. No cervical spinal tenderness, normal ROM CVS: Normal heart rate and rhythm. Pulses normal. Respiratory: No respiratory distress. Breath sounds normal. Abdomen: Soft and nontender. +BS x4 Skin: Skin warm and dry. Normal skin color. Normal skin turgor. No rashes. Extremities: No lower extremity edema. Neuro: Oriented X 3. No motor deficit. No sensory deficit. Course Course Course Narrative: 56 y/o male with history of seizure disorder on dilantin 200 mg bid and keppra 1000 mg bid, poorly controlled with breakthrough seizures as frequently as once per week presents to the ER with witnessed tonic-clonic seizure today as he fell out of a wheelchair and sustained abrasions to his face and head. Patient reports he is no longer taking his Keppra because it made his fingernails dry out. Not on anticoagulation. AAOx3 on arrival with poor recollection of events. Reevaluation(s) Reevaluation #1: Dilantin level again undetectable a low. He reports taking his medication ?he thinks.? It sounds like he has a nurse that comes and felt his med box from time to time but unclear if he is taking his medications as directed. Concern for medication noncompliance as he has a history of this. Will given oral load of Dilantin and discuss compliance with the fdc. Case was d/w Dr. Tamayo. MDM - Fall Lab Data Result diagrams: 08/03/21 14:53 08/03/21 14:53 Labs: Lab Results 08/03/21 08/03/21 08/03/21 Range/Units 14:53 14:53 14:53 WBC 8.7 (4.8-10.8) X10*3/uL RBC 4.96 (4.60-5.80) X10*6/uL Hgb 15.1 (14.0-18.0) g/dl Hct 47.2 (42.0-52.0) % MCV 95.2 (80.0-98.0) fL MCH 30.4 (27.0-33.0) pg MCHC 32.0 (31.0-36.0) g/dl RDW 12.1 (11.0-16.0) % Plt Count 276 (160-400) X10*3/uL MPV 8.2 L (9.4-12.4) fL Immature Gran % (Auto) 0.2 (0.0-0.4) % Neut % (Auto) 66.1 (45-73) % Lymph % (Auto) 16.5 L (20-40) % [place] % (Auto) 10.1 (2-11) % Eos % (Auto) 6.5 H (0-4) % Baso % (Auto) 0.6 (0-2) % Lymph # (Auto) 1.4 (1.2-4.9) X10*3/uL [place] # (Auto) 0.9 (0.1-1.2) X10*3/uL Eos # (Auto) 0.6 H (0.0-0.4) X10*3/uL Baso # (Auto) 0.1 (0.0-0.2) X10*3/uL Abs Immat Gran (auto) 0.02 (0.00-0.03) X10*3/uL Absolute Neuts (auto) 5.8 (2.0-8.3) x10*3/uL Absolute Nucleated RBC 0.000 (0.0-0.012) X10*3/uL Nucleated RBC % (auto) 0.0 (0.0-0.2) /100WBC Sodium 142 (135-145) mmol/L Potassium 4.2 (3.3-5.1) mmol/L Chloride 102 (96-108) mmol/L Carbon Dioxide 33 H (22-29) mmol/L Anion Gap 11 L (12-20) BUN 26 H (9-16) mg/dL Creatinine 1.41 H (0.5-1.4) mg/dL Estim Creat Clear Calc 59.1 Estimated GFR 52 Random Glucose 88 (60-115) mg/dL Calcium 10.1 D (8.4-10.2) mg/dL Magnesium 2.3 (1.6-2.6) mg/dL Total Bilirubin 0.3 (0.0-1.0) mg/dL Direct Bilirubin < 0.2 (0.0-0.5) mg/dL AST 14 (5-37) U/L ALT 10 (0-40) U/L Alkaline Phosphatase 88 (39-117) U/L Total Protein 6.8 (6.5-8.0) g/dL Albumin 3.8 (3.5-5.0) g/dL Urine Color Urine Appearance Urine pH (5.0-8.0) Ur Specific [place] (1.005-1.025) Urine Protein (NEG-TRACE) MG/DL Urine Glucose (UA) (NEG) MG/DL Urine Ketones (NEG) MG/DL Urine Blood (NEG) Urine Nitrite (NEG) Ur Leukocyte Esterase (NEG) Urine Opiates Screen (Not Detect) Urine Fentanyl Screen (Not Detect) Ur Barbiturates Screen (Not Detect) Phenytoin < 0.5 L* (10.0-20.0) ug/mL Ur Phencyclidine Scrn (Not Detect) Ur Amphetamines Screen (Not Detect) U Benzodiazepines Scrn (Not Detect) Urine Cocaine Screen (Not Detect) U Marijuana (THC) Screen (Not Detect) Ethyl Alcohol mg/dL COVID-19 (PASCUAL) Negative (Negative) COVID-19 Clin Com See Note 08/03/21 08/03/21 08/03/21 Range/Units 14:53 16:57 16:57 WBC (4.8-10.8) X10*3/uL RBC (4.60-5.80) X10*6/uL Hgb (14.0-18.0) g/dl Hct (42.0-52.0) % MCV (80.0-98.0) fL MCH (27.0-33.0) pg MCHC (31.0-36.0) g/dl RDW (11.0-16.0) % Plt Count (160-400) X10*3/uL MPV (9.4-12.4) fL Immature Gran % (Auto) (0.0-0.4) % Neut % (Auto) (45-73) % Lymph % (Auto) (20-40) % [place] % (Auto) (2-11) % Eos % (Auto) (0-4) % Baso % (Auto) (0-2) % Lymph # (Auto) (1.2-4.9) X10*3/uL [place] # (Auto) (0.1-1.2) X10*3/uL Eos # (Auto) (0.0-0.4) X10*3/uL Baso # (Auto) (0.0-0.2) X10*3/uL Abs Immat Gran (auto) (0.00-0.03) X10*3/uL Absolute Neuts (auto) (2.0-8.3) x10*3/uL Absolute Nucleated RBC (0.0-0.012) X10*3/uL Nucleated RBC % (auto) (0.0-0.2) /100WBC Sodium (135-145) mmol/L Potassium (3.3-5.1) mmol/L Chloride (96-108) mmol/L Carbon Dioxide (22-29) mmol/L Anion Gap (12-20) BUN (9-16) mg/dL Creatinine (0.5-1.4) mg/dL Estim Creat Clear Calc Estimated GFR Random Glucose (60-115) mg/dL Calcium (8.4-10.2) mg/dL Magnesium (1.6-2.6) mg/dL Total Bilirubin (0.0-1.0) mg/dL Direct Bilirubin (0.0-0.5) mg/dL AST (5-37) U/L ALT (0-40) U/L Alkaline Phosphatase (39-117) U/L Total Protein (6.5-8.0) g/dL Albumin (3.5-5.0) g/dL Urine Color YELLOW Urine Appearance CLOUDY Urine pH 6.5 (5.0-8.0) Ur Specific [place] 1.015 (1.005-1.025) Urine Protein NEG (NEG-TRACE) MG/DL Urine Glucose (UA) NEG (NEG) MG/DL Urine Ketones NEG (NEG) MG/DL Urine Blood NEG (NEG) Urine Nitrite NEG (NEG) Ur Leukocyte Esterase NEG (NEG) Urine Opiates Screen Not Detected (Not Detect) Urine Fentanyl Screen Not Detected (Not Detect) Ur Barbiturates Screen Not Detected (Not Detect) Phenytoin (10.0-20.0) ug/mL Ur Phencyclidine Scrn Not Detected (Not Detect) Ur Amphetamines Screen Not Detected (Not Detect) U Benzodiazepines Scrn Not Detected (Not Detect) Urine Cocaine Screen Not Detected (Not Detect) U Marijuana (THC) Screen Not Detected (Not Detect) Ethyl Alcohol < 10 mg/dL COVID-19 (PASCUAL) (Negative) COVID-19 Clin Com Critical Care Time Critical Care Time Critical Care Time: No Discharge Plan Discharge Clinical Impression: Seizure disorder Patient Disposition: Home, Self-Care Instructions: Recurrent Seizures in Adults (ED) Additional Instructions: Low Dilantin level was again so low was not unable to be detected. There was concern that you are not taking your medications appropriately. It is very important that you take your dilantin 200 mg once in the morning and once at night. Recommend following up with your doctor and your Neurologist [facility]. If you develop new or worsening symptoms call 911 or come back to the ER for further evaluation. Prescriptions: No Action clonazepam 1 mg tablet 1 tab PO BEDTIME RF: 0 phenytoin sodium extended [Dilantin Extended] 100 mg capsule 200 mg PO BID RF: 0
[2021-08-03 14:21] VITALS: BP 149/79; BP 150/90; PULSE 106; PULSE 88; RESP 16; TEMP 36.1; O2SAT 95; O2SAT 96; BMI 28.1
--- NOTE | 2021-08-03 14:57 | PHA.MEDREC ---
Pharmacy Consult ? Medication Reconciliation Pharmacy has completed the medication reconciliation.SPOKE WITH PATIENT IN ED - PATIENT ONLY TAKING PHENYTOIN AND CLONAZEPAM
[2021-08-03 15:00] LABS: MANUAL DIFF FLAG NO
[2021-08-03 15:01] LABS: Basophils Absolute Auto 0.1 X10*3/uL (0.0-0.2); Basophils Percent Auto 0.6 % (0-2); Eosinophils Absolute Auto 0.6 X10*3/uL (0.0-0.4); Eosinophils Percent Auto 6.5 % (0-4); Hematocrit 47.2 % (42.0-52.0); Hemoglobin 15.1 g/dl (14.0-18.0); Imm Gran Abs Auto 0.02 X10*3/uL (0.00-0.03); Imm Gran Pct Auto 0.2 % (0.0-0.4); Lymphocytes Absolute Auto 1.4 X10*3/uL (1.2-4.9); Lymphocytes Percent Auto 16.5 % (20-40); Mean Corpuscular Hemoglobin 30.4 pg (27.0-33.0); Mean Corpuscular Volume 95.2 fL (80.0-98.0); Mean Platelet Volume 8.2 fL (9.4-12.4); Monocytes Absolute Auto 0.9 X10*3/uL (0.1-1.2); Monocytes Percent Auto 10.1 % (2-11); Neutrophils Absolute Auto 5.8 x10*3/uL (2.0-8.3); Neutrophils Percent Auto 66.1 % (45-73); Platelet Count 276 X10*3/uL (160-400); Red Blood Count 4.96 X10*6/uL (4.60-5.80); Red Cell Distribution Width 12.1 % (11.0-16.0); White Blood Count 8.7 X10*3/uL (4.8-10.8)
[2021-08-03 15:14] LABS: Ethanol < 10 mg/dL
[2021-08-03 15:18] LABS: Alanine Aminotransferase 10 U/L (0-40); Albumin Level 3.8 g/dL (3.5-5.0); Alkaline Phosphatase 88 U/L (39-117); Anion Gap 11 (12-20); Aspartate Amino Transferase 14 U/L (5-37); Bilirubin Direct < 0.2 mg/dL (0.0-0.5); Bilirubin Total 0.3 mg/dL (0.0-1.0); Blood Urea Nitrogen 26 mg/dL (9-16); Calcium 10.1 mg/dL (8.4-10.2); Carbon Dioxide 33 mmol/L (22-29); Chloride 102 mmol/L (96-108); Creatinine Clr Calc Pharmacy 59.1; Estimated Glomerular Filt Rate 52; Glucose Random 88 mg/dL (60-115); Magnesium 2.3 mg/dL (1.6-2.6); Potassium 4.2 mmol/L (3.3-5.1); Sodium 142 mmol/L (135-145); Total Protein 6.8 g/dL (6.5-8.0)
[2021-08-03 15:37] LABS: COVID-19 Test Negative (Negative); IDNOW Serial# 9DD0AD1C
[2021-08-03 16:30] VITALS: BP 148/82; PULSE 95; RESP 18; TEMP 37; O2SAT 95
--- NOTE | 2021-08-03 16:32 | PC.NURSE ---
remains axox3. no szactivity. not postictal
[2021-08-03 17:04] LABS: Appearance Urine CLOUDY; Color Urine YELLOW; Glucose Urine UA NEG (NEG); Leukocyte Esterase Urine NEG (NEG); Nitrite Urine NEG (NEG); PH 6.5 (5.0-8.0); Specific Gravity - Urine 1.015 (1.005-1.025); Urine Blood NEG (NEG); Urine Ketones NEG (NEG); Urine Protein NEG (NEG-TRACE)
[2021-08-03 17:08] LABS: Phenytoin Dilantin < 0.5 ug/mL (10.0-20.0)
[2021-08-03 17:16] LABS: Amphetamine Screen Urine Not Detected (Not Detect); Barbiturates, Urine Not Detected (Not Detect); Benzodiazepines Screen Urine Not Detected (Not Detect); Cannabinoid Screen Urine Not Detected (Not Detect); Cocaine Screen Urine Not Detected (Not Detect); Fentanyl, urine Not Detected (Not Detect); Opiate Screen Urine Not Detected (Not Detect); Phencyclidine Screen Urine Not Detected (Not Detect)
[2021-08-03] MEDS: 0.9 % Sodium Chloride 1,000 ML 999 ML IVCONT (17:58)
[2021-08-03] MEDS: Phenytoin Sodium Extended 100 MG CAPSULE 1000 MG PO (17:58)
[2021-08-03 18:00] VITALS: BP 161/85; PULSE 94; RESP 18; O2SAT 95
--- NOTE | 2021-08-03 18:03 | PC.NURSE ---
pt insists that he takes his sz meds as prescrined. has assistance once a week but can't remember name of company no sz in ED
[2021-08-03 21:47] VITALS: BP 145/77; PULSE 93; RESP 18; TEMP 37; O2SAT 94
== END 2021-08-03 23:31 | disposition home or self-care (01) ==
PROVIDERS: Physician Assistant; Emergency Provider Emergency Medicine
DX: G40.909 Epilepsy, unspecified, not intractable, without status epilepticus (principal); S00.81XA Abrasion of other part of head, initial encounter; W05.0XXA Fall from non-moving wheelchair, initial encounter; Z20.822 Contact with and (suspected) exposure to COVID-19; Y93.9 Activity, unspecified; Y92.039 Unspecified place in apartment as the place of occurrence of the external cause; Y99.9 Unspecified external cause status; Z87.820 Personal history of traumatic brain injury
CPT/HCPCS: 36415; 70450; 72125; 80048; 80076; 80185; 80307; 81003; 82077; 83735; 85025; 87635; 96360; 99284

== ENCOUNTER 2021-08-10 11:03 | Emergency (ER) | payer MEDICARE, MEDICAID, SELFPAY ==
--- NOTE | ~2021-08-10 | CT_ITS ---
EXAMINATION: CT HEAD W/O IV CONTRAST CT CERVICAL SPINE W/O IV CONTRAST CLINICAL INFORMATION: History of seizure, fall, head strike. COMPARISON: Prior CT exams of head and cervical spine from 11/13/2020 and 08/03/2021. TECHNIQUE: Head - Contiguous axial imaging of the head was performed from the skull base to the vertex without the administration of intravenous contrast, and axial images are reconstructed at 2 mm and 5 mm slice thickness. Cervical spine - A volumetric, helical CT acquisition of the cervical spine was obtained without contrast; in addition to the standard set of axial images, multiplanar reformatted images were provided in the coronal and sagittal imaging planes. This CT examination was performed using dose optimization techniques as appropriate, variously including the following: *Automated exposure control *Adjustment of mA and/or kV according to patient size (this includes techniques or standardized protocols for targeted exams where dose is matched to indication/reason for exam; i.e. extremities or head) *Use of iterative reconstruction technique DLP: 1511 mGy-cm (total) FINDINGS: HEAD: No evidence of intracranial hemorrhage, major vascular territory infarction, focal mass effect or midline shift. Davies to white matter differentiation is preserved. The ventricles have normal size and configuration. No extra-axial fluid collections. Chronic atrophy of cerebellar hemispheres. The paranasal sinuses and mastoid air cells are well aerated. No fracture or malalignment at either temporomandibular joint. The orbits and globes are unremarkable. No calvarial fracture. CERVICAL SPINE: No acute abnormalities compared to 08/03/2021. The craniocervical junction is normal. The occipital condyles, dens and atlantodental articulation are intact. There is mild levocurvature of the degenerated cervical spine. Chronic multilevel facet osteoarthritis and disc degenerative changes. There is moderate loss of disc height and vertebral osteophyte formation at C4-C5, C5-C6 and C6-C7, with multilevel uncovertebral joint hypertrophy. The osteophytes produce chronic multilevel neural foraminal stenosis. At C5-C6, the posterior disc osteophyte complex narrows the central spinal canal to 0.8-0.9 cm AP dimension. There is chronic grade 1 anterolisthesis at C4-C5. No evidence of traumatic vertebral subluxation. No fractures in the anterior or posterior elements. No prevertebral soft tissue swelling. No spinal hematoma or focal fluid collection in the visualized neck. Thyroid gland is atrophied. The visualized lung apices are normal. CT/CT cervical spine wo con IMPRESSION: * No hemorrhage or other acute intracranial pathology compared to 08/03/2021. * No fractures in the chronically degenerated cervical spine.
[2021-08-10 11:10] VITALS: BP 176/96; BP 200/125; PULSE 89; PULSE 90; RESP 14; TEMP 37.1; O2SAT 96; BMI 31.3
--- NOTE | 2021-08-10 11:20 | ED_ITS ---
HPI - Seizure General Chief Complaint: Seizure <RIDGE Pendleton - Last Filed: 08/10/21 14:15> Stated Complaint: SZ <RIDGE Pendleton - Last Filed: 08/10/21 14:15> Time Seen by Provider: 08/10/21 11:07 <RIDGE Pendleton Last Filed: 08/10/21 14:15> Source: patient and EMS <RIDGE Pendleton Last Filed: 08/10/21 14:15> Mode of arrival: EMS <RIDGE Pendleton - Last Filed: 08/10/21 14:15> Limitations: no limitations <RIDGE Pendleton Last Filed: 08/10/21 14:15> History of Present Illness HPI Narrative: 56 y/o male with history of TBI, CVA, seizure disorder with frequent breakthrough seizures presents to the ER via EMS with a witnessed 2 minute tonic-clonic seizure. He was reportedly sitting in a wheelchair fell forward hit his head and had a seizure that was witnessed. He had the exact same presentation on 08/03. Depakote level has been 0.5 on every ER visit since October. He has been here several times for seizures. Reports that he has been taking his Dilantin. He has a nurse that fills his pill box once a week. He lives home alone. On EMS arrival patient was alert and oriented x3. He had no complaints. He was placed in a C-collar given head trauma. <RIDGE Pendleton - Last Filed: 08/10/21 14:15> MD complaint: seizure <RIDGE Pendleton - Last Filed: 08/10/21 14:15> Onset (ago): minute(s) <RIDGE Pendleton - Last Filed: 08/10/21 14:15> Description of Episode: loss of consciousness and tonic-clonic movement <RIDGE Pendleton Last Filed: 08/10/21 14:15> Witnessed: Yes - by Bystander <RIDGE Pendleton Last Filed: 08/10/21 14:15> Trauma: Yes <RIDGE Pendleton Last Filed: 08/10/21 14:15> Seizure History: Yes <RIDGE Pendleton Last Filed: 08/10/21 14:15> Place: Home <RIDGE Pendleton Last Filed: 08/10/21 14:15> Possible Precipitating Event: medication <RIDGE Pendleton Last Filed: 08/10/21 14:15> Associated symptoms: denies other symptoms <RIDGE Pendleton Last Filed: 08/10/21 14:15> Treatments prior to arrival: none <RIDGE Pendleton Last Filed: 08/10/21 14:15> Related Data Home Medications: Home Medications Medication Instructions Recorded Confirmed clonazepam 1 mg tablet 1 tab PO BEDTIME 08/03/21 08/03/21 phenytoin sodium extended 100 mg 200 mg PO BID 08/03/21 08/03/21 capsule (Dilantin Extended) <RIDGE Pendleton Last Filed: 08/10/21 14:15> Allergies/Adverse Reactions: Allergies Allergy/AdvReac Type Severity Reaction Status Date / Time No Known Allergies Allergy Unverified 05/10/20 17:06 [No Known Allergies*] <RIDGE Pendleton Last Filed: 08/10/21 14:15> Review of Systems Review of Systems: Constitutional: No Fever, No Chills ENT/Mouth: No sore throat, No Rhinorrhea, No Swallowing Difficulty Cardiovascular: No Chest Pain, No SOB, No Orthopnea, No Edema Respiratory: No Cough, No Sputum, No Wheezing, No dyspnea Gastrointestinal: No Nausea, No Vomiting, No Diarrhea, No abdominal Pain Genitourinary: No Dysuria, No Urinary Frequency, No Hematuria Musculoskeletal: No joint pain, No Myalgias Skin: No Skin Lesions, No rash Neuro: No Weakness, No Numbness, No Dizziness, + Headache Psych: No Anxiety/Panic, No Depression Heme/Lymph: No Bruising, No Lymphadenopathy <RIDGE Pendleton Last Filed: 08/10/21 14:15> COUNTS INCLUDE 234 BEDS AT THE [facility] Past Medical History Medical History: Medical History Seizure disorder TBI (traumatic brain injury) <RIDGE Pendleton Last Filed: 08/10/21 14:15> Social History Social History: Social History Alcohol intake: never Patient Tobacco Use Status: Former Tobacco user Smoked in Last 30 Days: No Use of substances other than those prescribed or required for medical reasons: No Advance Directives: No Advance Directives Information Provided: No Advance Directives Date on File: 11/29/20 <RIDGE Pendleton - Last Filed: 08/10/21 14:15> Physical Exam Vital Signs: Vital Signs: Last Vital Signs Temp 98.7 F 08/10/21 11:10 Pulse 89 08/10/21 11:10 Resp 14 08/10/21 11:10 BP 176/96 H 08/10/21 11:10 Pulse Ox 96 08/10/21 11:10 BMI result Body Mass Index 31.3 <RIDGE Pendleton - Last Filed: 08/10/21 14:15> Vital Signs: Last Vital Signs Temp 98.7 F 08/10/21 11:10 Pulse 89 08/10/21 11:10 Resp 14 08/10/21 11:10 BP 176/96 H 08/10/21 11:10 Pulse Ox 96 08/10/21 11:10 BMI result Body Mass Index 31.3 <RIDGE Campbell - Last Filed: 08/10/21 14:45> Appearance: Alert. Oriented X3. No acute distress. Head: superficial abrasion to left upper forehead with small palpable hematoma Eyes: Pupils equal, round and reactive to light. ENT: Pharynx normal. Neck: Normal inspection. Neck supple. CVS: Normal heart rate and rhythm. Pulses normal. Respiratory: No respiratory distress. Breath sounds normal. Abdomen: Soft and nontender. +BS x4 Skin: Skin warm and dry. Normal skin color. Normal skin turgor. No rashes. Extremities: No lower extremity edema. Neuro: Oriented X 3. No motor deficit. No sensory deficit. <RIDGE Pendleton - Last Filed: 08/10/21 14:15> Course Course Course Narrative: 56-year-old with known seizure disorder on Dilantin, TBI, CVA who presents to the ER witnessed seizure. He fell off his wheelchair and hit his head. He is awake and alert on arrival. He has been noncompliant with his Dilantin with levels less than 0.5 on several visits. He is persistent in abdomen that he has been taking his medications as prescribed. He was previously on Keppra but his neurologist to come off of it because of severe dry fingers and cracking of his fingernails. He does not want to go back on Keppra. Will repeat his lab work and CT scan. Will get case management involved to see if there is anything they can do to help with care at home and medication administration. <RIDGE Pendleton - Last Filed: 08/10/21 14:15> Reevaluation(s) Reevaluation #1: Dilantin level 5.3 which may be from the extended release oral load he was given last week vs partial compliance at home. Case d/w case management - she will arrange DAILY medication administration at this time he only has weekly med fill visit at home. He is stable for d/c home outpatient follow up and closer medication administration. <RIDGE Pendleton - Last Filed: 08/10/21 14:15> Reevaluation #2: 1441--CT head/brain wo con / CT cervical spine wo con IMPRESSION: *? No hemorrhage or other acute intracranial pathology compared to 08/03/2021. *? No fractures in the chronically degenerated cervical spine. > patient loaded with additional 1g of extended release Phenytoin in the ED prior to discharge <RIDGE Campbell - Last Filed: 08/10/21 14:45> MDM - Seizure Medical Records Attestation: I reviewed the patient's medical records. <RIDGE Campbell - Last Filed: 08/10/21 14:45> Lab Data Attestation: I reviewed the patient's lab results. <RIDGE Campbell - Last Filed: 08/10/21 14:45> Result diagrams: : 08/10/21 12:49 08/10/21 12:49 <RIDGE Pendleton - Last Filed: 08/10/21 14:15> Labs: Lab Results 08/10/21 08/10/21 08/10/21 Range/Units 12:49 12:49 12:49 WBC 9.1 (4.8-10.8) X10*3/uL RBC 5.18 (4.60-5.80) X10*6/uL Hgb 15.9 (14.0-18.0) g/dl Hct 48.6 (42.0-52.0) % MCV 93.8 (80.0-98.0) fL MCH 30.7 (27.0-33.0) pg MCHC 32.7 (31.0-36.0) g/dl RDW 11.9 (11.0-16.0) % Plt Count 288 (160-400) X10*3/uL MPV 8.3 L (9.4-12.4) fL Immature Gran % (Auto) 0.3 (0.0-0.4) % Neut % (Auto) 72.2 (45-73) % Lymph % (Auto) 13.1 L (20-40) % Ford % (Auto) 8.2 (2-11) % Eos % (Auto) 5.7 H (0-4) % Baso % (Auto) 0.5 (0-2) % Lymph # (Auto) 1.2 (1.2-4.9) X10*3/uL Ford # (Auto) 0.8 (0.1-1.2) X10*3/uL Eos # (Auto) 0.5 H (0.0-0.4) X10*3/uL Baso # (Auto) 0.1 (0.0-0.2) X10*3/uL Abs Immat Gran (auto) 0.03 (0.00-0.03) X10*3/uL Absolute Neuts (auto) 6.6 (2.0-8.3) x10*3/uL Absolute Nucleated RBC 0.000 (0.0-0.012) X10*3/uL Nucleated RBC % (auto) 0.0 (0.0-0.2) /100WBC Sodium 139 (135-145) mmol/L Potassium 4.4 (3.3-5.1) mmol/L Chloride 106 (96-108) mmol/L Carbon Dioxide 26 (22-29) mmol/L Anion Gap 11 L (12-20) BUN 17 H (9-16) mg/dL Creatinine 0.94 (0.5-1.4) mg/dL Estim Creat Clear Calc 93.1 Estimated GFR > 60 Random Glucose 85 (60-115) mg/dL Calcium 9.0 D (8.4-10.2) mg/dL Magnesium 2.3 (1.6-2.6) mg/dL Total Bilirubin 0.3 (0.0-1.0) mg/dL Direct Bilirubin < 0.2 (0.0-0.5) mg/dL AST 16 (5-37) U/L ALT 11 (0-40) U/L Alkaline Phosphatase 95 (39-117) U/L Total Creatine Kinase 77 (38-174) U/L Total Protein 7.1 (6.5-8.0) g/dL Albumin 4.0 (3.5-5.0) g/dL Phenytoin 5.3 L* (10.0-20.0) ug/mL Ethyl Alcohol mg/dL COVID-19 (PASCUAL) Negative (Negative) COVID-19 Clin Com See Note 08/10/21 Range/Units 12:49 WBC (4.8-10.8) X10*3/uL RBC (4.60-5.80) X10*6/uL Hgb (14.0-18.0) g/dl Hct (42.0-52.0) % MCV (80.0-98.0) fL MCH (27.0-33.0) pg MCHC (31.0-36.0) g/dl RDW (11.0-16.0) % Plt Count (160-400) X10*3/uL MPV (9.4-12.4) fL Immature Gran % (Auto) (0.0-0.4) % Neut % (Auto) (45-73) % Lymph % (Auto) (20-40) % Ford % (Auto) (2-11) % Eos % (Auto) (0-4) % Baso % (Auto) (0-2) % Lymph # (Auto) (1.2-4.9) X10*3/uL Ford # (Auto) (0.1-1.2) X10*3/uL Eos # (Auto) (0.0-0.4) X10*3/uL Baso # (Auto) (0.0-0.2) X10*3/uL Abs Immat Gran (auto) (0.00-0.03) X10*3/uL Absolute Neuts (auto) (2.0-8.3) x10*3/uL Absolute Nucleated RBC (0.0-0.012) X10*3/uL Nucleated RBC % (auto) (0.0-0.2) /100WBC Sodium (135-145) mmol/L Potassium (3.3-5.1) mmol/L Chloride (96-108) mmol/L Carbon Dioxide (22-29) mmol/L Anion Gap (12-20) BUN (9-16) mg/dL Creatinine (0.5-1.4) mg/dL Estim Creat Clear Calc Estimated GFR Random Glucose (60-115) mg/dL Calcium (8.4-10.2) mg/dL Magnesium (1.6-2.6) mg/dL Total Bilirubin (0.0-1.0) mg/dL Direct Bilirubin (0.0-0.5) mg/dL AST (5-37) U/L ALT (0-40) U/L Alkaline Phosphatase (39-117) U/L Total Creatine Kinase (38-174) U/L Total Protein (6.5-8.0) g/dL Albumin (3.5-5.0) g/dL Phenytoin (10.0-20.0) ug/mL Ethyl Alcohol < 10 mg/dL COVID-19 (PASCUAL) (Negative) COVID-19 Clin Com <RIDGE Pendleton - Last Filed: 08/10/21 14:15> Lab Results 08/10/21 08/10/21 08/10/21 Range/Units 12:49 12:49 12:49 WBC 9.1 (4.8-10.8) X10*3/uL RBC 5.18 (4.60-5.80) X10*6/uL Hgb 15.9 (14.0-18.0) g/dl Hct 48.6 (42.0-52.0) % MCV 93.8 (80.0-98.0) fL MCH 30.7 (27.0-33.0) pg MCHC 32.7 (31.0-36.0) g/dl RDW 11.9 (11.0-16.0) % Plt Count 288 (160-400) X10*3/uL MPV 8.3 L (9.4-12.4) fL Immature Gran % (Auto) 0.3 (0.0-0.4) % Neut % (Auto) 72.2 (45-73) % Lymph % (Auto) 13.1 L (20-40) % Ford % (Auto) 8.2 (2-11) % Eos % (Auto) 5.7 H (0-4) % Baso % (Auto) 0.5 (0-2) % Lymph # (Auto) 1.2 (1.2-4.9) X10*3/uL Ford # (Auto) 0.8 (0.1-1.2) X10*3/uL Eos # (Auto) 0.5 H (0.0-0.4) X10*3/uL Baso # (Auto) 0.1 (0.0-0.2) X10*3/uL Abs Immat Gran (auto) 0.03 (0.00-0.03) X10*3/uL Absolute Neuts (auto) 6.6 (2.0-8.3) x10*3/uL Absolute Nucleated RBC 0.000 (0.0-0.012) X10*3/uL Nucleated RBC % (auto) 0.0 (0.0-0.2) /100WBC Sodium 139 (135-145) mmol/L Potassium 4.4 (3.3-5.1) mmol/L Chloride 106 (96-108) mmol/L Carbon Dioxide 26 (22-29) mmol/L Anion Gap 11 L (12-20) BUN 17 H (9-16) mg/dL Creatinine 0.94 (0.5-1.4) mg/dL Estim Creat Clear Calc 93.1 Estimated GFR > 60 Random Glucose 85 (60-115) mg/dL Calcium 9.0 D (8.4-10.2) mg/dL Magnesium 2.3 (1.6-2.6) mg/dL Total Bilirubin 0.3 (0.0-1.0) mg/dL Direct Bilirubin < 0.2 (0.0-0.5) mg/dL AST 16 (5-37) U/L ALT 11 (0-40) U/L Alkaline Phosphatase 95 (39-117) U/L Total Creatine Kinase 77 (38-174) U/L Total Protein 7.1 (6.5-8.0) g/dL Albumin 4.0 (3.5-5.0) g/dL Phenytoin 5.3 L* (10.0-20.0) ug/mL Ethyl Alcohol mg/dL COVID-19 (PASCUAL) Negative (Negative) COVID-19 Clin Com See Note 08/10/21 Range/Units 12:49 WBC (4.8-10.8) X10*3/uL RBC (4.60-5.80) X10*6/uL Hgb (14.0-18.0) g/dl Hct (42.0-52.0) % MCV (80.0-98.0) fL MCH (27.0-33.0) pg MCHC (31.0-36.0) g/dl RDW (11.0-16.0) % Plt Count (160-400) X10*3/uL MPV (9.4-12.4) fL Immature Gran % (Auto) (0.0-0.4) % Neut % (Auto) (45-73) % Lymph % (Auto) (20-40) % Ford % (Auto) (2-11) % Eos % (Auto) (0-4) % Baso % (Auto) (0-2) % Lymph # (Auto) (1.2-4.9) X10*3/uL Ford # (Auto) (0.1-1.2) X10*3/uL Eos # (Auto) (0.0-0.4) X10*3/uL Baso # (Auto) (0.0-0.2) X10*3/uL Abs Immat Gran (auto) (0.00-0.03) X10*3/uL Absolute Neuts (auto) (2.0-8.3) x10*3/uL Absolute Nucleated RBC (0.0-0.012) X10*3/uL Nucleated RBC % (auto) (0.0-0.2) /100WBC Sodium (135-145) mmol/L Potassium (3.3-5.1) mmol/L Chloride (96-108) mmol/L Carbon Dioxide (22-29) mmol/L Anion Gap (12-20) BUN (9-16) mg/dL Creatinine (0.5-1.4) mg/dL Estim Creat Clear Calc Estimated GFR Random Glucose (60-115) mg/dL Calcium (8.4-10.2) mg/dL Magnesium (1.6-2.6) mg/dL Total Bilirubin (0.0-1.0) mg/dL Direct Bilirubin (0.0-0.5) mg/dL AST (5-37) U/L ALT (0-40) U/L Alkaline Phosphatase (39-117) U/L Total Creatine Kinase (38-174) U/L Total Protein (6.5-8.0) g/dL Albumin (3.5-5.0) g/dL Phenytoin (10.0-20.0) ug/mL Ethyl Alcohol < 10 mg/dL COVID-19 (PASCUAL) (Negative) COVID-19 Clin Com <RIDGE Campbell - Last Filed: 08/10/21 14:45> Discharge Plan Discharge Clinical Impression: Generalized seizure <RIDGE Pendleton - Last Filed: 08/10/21 14:15> Patient Disposition: Home, Self-Care <RIDGE Pendleton Last Filed: 08/10/21 14:15> Instructions: Recurrent Seizures in Adults (ED) <RIDGE Pendleton Last Filed: 08/10/21 14:15> Additional Instructions: TAKE YOUR DILANTIN TWO TIMES PER DAY PRESCRIBED. <RIDGE Pendleton Last Filed: 08/10/21 14:15> Prescriptions: No Action clonazepam 1 mg tablet 1 tab PO BEDTIME RF: 0 phenytoin sodium extended [Dilantin Extended] 100 mg capsule 200 mg PO BID RF: 0 <RIDGE Pendleton Last Filed: 08/10/21 14:15> Referrals: [facility] [Outside] - 2 days <RIDGE Pendleton Last Filed: 08/10/21 14:15>
[2021-08-10] MEDS: 0.9 % Sodium Chloride 1,000 ML 999 ML IVCONT (11:35)
[2021-08-10 12:57] LABS: MANUAL DIFF FLAG NO
[2021-08-10 13:02] LABS: Basophils Absolute Auto 0.1 X10*3/uL (0.0-0.2); Basophils Percent Auto 0.5 % (0-2); Eosinophils Absolute Auto 0.5 X10*3/uL (0.0-0.4); Eosinophils Percent Auto 5.7 % (0-4); Hematocrit 48.6 % (42.0-52.0); Hemoglobin 15.9 g/dl (14.0-18.0); Imm Gran Abs Auto 0.03 X10*3/uL (0.00-0.03); Imm Gran Pct Auto 0.3 % (0.0-0.4); Lymphocytes Absolute Auto 1.2 X10*3/uL (1.2-4.9); Lymphocytes Percent Auto 13.1 % (20-40); Mean Corpuscular HGB Conc 32.7 g/dl (31.0-36.0); Mean Corpuscular Hemoglobin 30.7 pg (27.0-33.0); Mean Corpuscular Volume 93.8 fL (80.0-98.0); Mean Platelet Volume 8.3 fL (9.4-12.4); Monocytes Absolute Auto 0.8 X10*3/uL (0.1-1.2); Monocytes Percent Auto 8.2 % (2-11); Neutrophils Absolute Auto 6.6 x10*3/uL (2.0-8.3); Neutrophils Percent Auto 72.2 % (45-73); Platelet Count 288 X10*3/uL (160-400); Red Blood Count 5.18 X10*6/uL (4.60-5.80); Red Cell Distribution Width 11.9 % (11.0-16.0); White Blood Count 9.1 X10*3/uL (4.8-10.8)
[2021-08-10 13:12] LABS: Ethanol < 10 mg/dL
[2021-08-10 13:13] LABS: COVID-19 Test Negative (Negative)
[2021-08-10 13:17] LABS: Alanine Aminotransferase 11 U/L (0-40); Alkaline Phosphatase 95 U/L (39-117); Anion Gap 11 (12-20); Aspartate Amino Transferase 16 U/L (5-37); Bilirubin Direct < 0.2 mg/dL (0.0-0.5); Bilirubin Total 0.3 mg/dL (0.0-1.0); Blood Urea Nitrogen 17 mg/dL (9-16); Carbon Dioxide 26 mmol/L (22-29); Chloride 106 mmol/L (96-108); Creatinine Clr Calc Pharmacy 93.1; Estimated Glomerular Filt Rate > 60; Glucose Random 85 mg/dL (60-115); Magnesium 2.3 mg/dL (1.6-2.6); Potassium 4.4 mmol/L (3.3-5.1); Sodium 139 mmol/L (135-145); Total Protein 7.1 g/dL (6.5-8.0)
[2021-08-10 13:39] LABS: Phenytoin Dilantin 5.3 ug/mL (10.0-20.0)
--- NOTE | 2021-08-10 14:21 | MHC.CM.ED ---
Addendum entered by Maryellen Kaufman 08/10/21 15:10: Action chair van booked for next available. Med nec with chart. Original Note: Received case management consult from Katie SABILLON. Mitzy came to ER due to seizure. Patient has been to the ER4 times for breakthrough seizures due to medical non-compliance. Patient is active with [facility]. [facility] will come once a week to fill patient's medication box. T/W requested [facility] increase services in order increase medication compliance. Katie SABILLON aware. Continue to monitor for d/c needs.
[2021-08-10 14:46] VITALS: BP 164/89; PULSE 88; RESP 14; O2SAT 96
[2021-08-10] MEDS: Phenytoin Sodium Extended 100 MG CAPSULE 1000 MG PO (14:46)
[2021-08-10 18:10] VITALS: RESP 18
== END 2021-08-10 20:39 | disposition home or self-care (01) ==
PROVIDERS: Physician Assistant; Emergency Provider Emergency Medicine
DX: G40.409 Other generalized epilepsy and epileptic syndromes, not intractable, without status epilepticus (principal); Z86.73 Personal history of transient ischemic attack (TIA), and cerebral infarction without residual deficits; Z79.899 Other long term (current) drug therapy; Z20.822 Contact with and (suspected) exposure to COVID-19; Z91.14 Patient's other noncompliance with medication regimen
CPT/HCPCS: 36415; 70450; 72125; 80048; 80076; 80185; 82077; 82550; 83735; 85025; 87635; 96360; 99284

== ENCOUNTER 2021-11-25 16:44 | Emergency (ER) | payer MEDICARE, MEDICAID, SELFPAY ==
--- NOTE | ~2021-11-25 | XR_ITS ---
EXAMINATION: XR SHOULDER, RIGHT CLINICAL INFORMATION: Fall. Dislocation. COMPARISON: None TECHNIQUE: Three views of the right shoulder. FINDINGS: Anterior dislocation of the humerus. Impaction changes at the greater tuberosity of humeral head consistent with fracture. There is a displaced fracture fragment measuring about 1.5 cm. The acromioclavicular joint is normal. XR/XR shoulder RT min 2V IMPRESSION: Anterior dislocation of humerus. Fracture of humeral head at the greater tuberosity.
--- NOTE | ~2021-11-25 | XR_ITS ---
EXAMINATION: XR SHOULDER, RIGHT CLINICAL INFORMATION: Post reduction COMPARISON: Shoulder radiographs earlier today TECHNIQUE: Two views of the right shoulder. FINDINGS: There has been reduction of the previously noted anterior/inferior dislocation of the right glenohumeral joint. The fracture of the greater tuberosity is not as well seen on these radiographs as it was on the prereduction films. XR/XR shoulder RT 1V IMPRESSION: Successful reduction of right shoulder dislocation
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
[2021-11-25 17:07] VITALS: BP 110/80; PULSE 80; RESP 18; O2SAT 97; BMI 28.0
[2021-11-25] MEDS: Ibuprofen 600 MG TABLET PO (18:03)
== END 2021-11-25 22:49 | disposition home or self-care (01) ==
PROVIDERS: Emergency Provider Internal Medicine
DX: S43.014A Anterior dislocation of right humerus, initial encounter (principal); S42.251A Displaced fracture of greater tuberosity of right humerus, initial encounter for closed fracture; V78.1XXA Passenger on bus injured in noncollision transport accident in nontraffic accident, initial encounter; Y93.89 Activity, other specified; Y92.410 Unspecified street and highway as the place of occurrence of the external cause; Y99.9 Unspecified external cause status
CPT/HCPCS: 23665; 73020; 73030; 99283; 99284

== ENCOUNTER 2022-02-08 13:35 | Emergency (ER) | payer MEDICARE, MEDICAID, SELFPAY ==
--- NOTE | ~2022-02-08 | CT_ITS ---
EXAMINATION: CT HEAD WITHOUT CONTRAST CLINICAL INFORMATION: Seizures COMPARISON: 08/10/2021 TECHNIQUE: Contiguous axial imaging was performed from the skull base to vertex without intravenous administration of contrast. This CT examination was performed using dose optimization techniques as appropriate, variously including the following: *Automated exposure control *Adjustment of mA and/or kV according to patient size (this includes techniques or standardized protocols for targeted exams where dose is matched to indication/reason for exam; i.e. extremities or head) *Use of iterative reconstruction technique DLP: 838 mGy-cm FINDINGS: There is no evidence of acute intracranial hemorrhage or territorial infarction. No abnormal mass effect or midline shift is seen. Davies to white matter differentiation is well preserved. No extra-axial fluid collections are identified. The ventricles are normal in size. There is no abnormal attenuation within the brain parenchyma. There is chronic similar to the previous study atrophy of cerebellar cortex. The osseous structures and soft tissues are normal. The mastoid air cells and visualized portions of the paranasal sinuses are well aerated. CT/CT head/brain wo con IMPRESSION: No acute intracranial pathology. Chronic cerebellar atrophy
--- NOTE | ~2022-02-08 | XR_ITS ---
EXAMINATION: XR CHEST CLINICAL INFORMATION: Oxygen saturation COMPARISON: Chest x-ray 11/29/2020 TECHNIQUE: Frontal view of the chest was obtained. FINDINGS: Lungs are mildly hypoinflated. Streaky bibasilar opacities compatible with subsegmental atelectasis. No airspace consolidation. No appreciable pleural effusion. No pneumothorax. Normal cardiomediastinal silhouette. No evidence of pulmonary edema. No acute osseous injury identified. XR/XR chest 1V IMPRESSION: Low lung volumes with bibasilar subsegmental atelectasis. No acute pulmonary process identified.
--- NOTE | 2022-02-08 13:46 | ECG_ITS ---
Test Reason : SEIZURE Blood Pressure : / mmHG Vent. Rate : 106 BPM Atrial Rate : 106 BPM P-R Int : 160 ms QRS Dur : 090 ms QT Int : 338 ms P-R-T Axes : 032 071 046 degrees QTc Int : 448 ms Sinus tachycardia Otherwise normal ECG When compared with ECG of 29-NOV-2020 13:58, No significant change was found Referred By: Oma Spaulding Electronically Signed By:Kb Small
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
[2022-02-08 14:03] VITALS: BP 152/115; BP 166/101; PULSE 110; PULSE 113; RESP 30; O2SAT 92; O2SAT 98; BMI 38.0
[2022-02-08] MEDS: LORazepam 2 MG/ML VIAL IVPUSH ×2 (14:05→14:15)
[2022-02-08 14:18] LABS: Glucose, Whole Blood 81 mg/dL (60-115)
[2022-02-08] MEDS: levETIRAcetam in NaCl (iso-os) 1,000 MG/100 ML PIGGYBACK 400 MG IV (14:21)
[2022-02-08 14:40] LABS: MANUAL DIFF FLAG NO
[2022-02-08 14:41] LABS: Basophils Absolute Auto 0.1 X10*3/uL (0.0-0.2); Basophils Percent Auto 0.7 % (0-2); Eosinophils Absolute Auto 0.6 X10*3/uL (0.0-0.4); Eosinophils Percent Auto 6.1 % (0-4); Hematocrit 47.3 % (42.0-52.0); Hemoglobin 15.5 g/dl (14.0-18.0); Imm Gran Abs Auto 0.03 X10*3/uL (0.00-0.03); Imm Gran Pct Auto 0.3 % (0.0-0.4); Lymphocytes Absolute Auto 1.1 X10*3/uL (1.2-4.9); Lymphocytes Percent Auto 10.8 % (20-40); Mean Corpuscular HGB Conc 32.8 g/dl (31.0-36.0); Mean Corpuscular Hemoglobin 30.9 pg (27.0-33.0); Mean Corpuscular Volume 94.2 fL (80.0-98.0); Mean Platelet Volume 7.8 fL (9.4-12.4); Monocytes Absolute Auto 1.1 X10*3/uL (0.1-1.2); Monocytes Percent Auto 10.9 % (2-11); Neutrophils Absolute Auto 7.3 x10*3/uL (2.0-8.3); Neutrophils Percent Auto 71.2 % (45-73); Platelet Count 264 X10*3/uL (160-400); Red Blood Count 5.02 X10*6/uL (4.60-5.80); Red Cell Distribution Width 12.2 % (11.0-16.0); White Blood Count 10.2 X10*3/uL (4.8-10.8)
[2022-02-08 14:47] LABS: INTERNATIONAL NORM RATIO 1.1 (0.9-1.1); Prothrombin Time 12.5 SEC (9.9-13.0)
[2022-02-08 14:54] LABS: Appearance Urine CLEAR; Color Urine YELLOW; Glucose Urine UA NEG (NEG); Leukocyte Esterase Urine NEG (NEG); Nitrite Urine NEG (NEG); PH 6.5 (5.0-8.0); Specific Gravity - Urine <= 1.005 (1.005-1.025); Urine Blood NEG (NEG); Urine Ketones NEG (NEG); Urine Protein NEG (NEG-TRACE)
[2022-02-08 14:55] LABS: Lactic Acid 1.5 mmol/L (0.5-2.0)
[2022-02-08 14:58] LABS: Ethanol < 10 mg/dL
[2022-02-08 15:00] LABS: Alanine Aminotransferase 12 U/L (0-40); Alkaline Phosphatase 112 U/L (39-117); Anion Gap 12 (12-20); Aspartate Amino Transferase 16 U/L (5-37); Bilirubin Total 0.3 mg/dL (0.0-1.0); Blood Urea Nitrogen 12 mg/dL (9-16); Calcium 8.6 mg/dL (8.4-10.2); Carbon Dioxide 29 mmol/L (22-29); Chloride 100 mmol/L (96-108); Creatinine Clr Calc Pharmacy 115.3; Estimated Glomerular Filt Rate > 60; Glucose Random 93 mg/dL (60-115); Potassium 4.1 mmol/L (3.3-5.1); Sodium 137 mmol/L (135-145); Total Protein 7.2 g/dL (6.5-8.0)
[2022-02-08 15:03] LABS: COVID-19 Test Negative (Negative)
[2022-02-08 15:10] LABS: Barbiturates, Urine Not Detected (Not Detect); Benzodiazepines Screen Urine POSITIVE (Not Detect); Cannabinoid Screen Urine Not Detected (Not Detect); Cocaine Screen Urine Not Detected (Not Detect); Fentanyl, urine Not Detected (Not Detect); Opiate Screen Urine Not Detected (Not Detect); Phencyclidine Screen Urine Not Detected (Not Detect)
[2022-02-08 15:21] LABS: Amphetamine Screen Urine Not Detected (Not Detect)
[2022-02-08 15:23] VITALS: BP 165/93; PULSE 103; RESP 20; O2SAT 98
--- NOTE | 2022-02-08 15:24 | PC.NURSE ---
patient minimally responsive- will respond to painful stimulus, vitals stable- 98% on 4L NC, patient at times desats, bedolla cath patient/draining clear yellow urine, seizure precautions intact, no seizures noted at this time, will continue to monitor.
[2022-02-08 16:02] LABS: Phenytoin Dilantin 12.7 ug/mL (10.0-20.0)
--- NOTE | 2022-02-08 17:15 | PHA.MEDREC ---
Pharmacy Consult ? Medication Reconciliation Pharmacy has completed the medication reconciliation.
--- NOTE | 2022-02-08 17:20 | PC.NURSE ---
PATIENT WAS INC OF URINE ,CARE GIVEN AND BEDDING CHANGE .
[2022-02-08 19:03] VITALS: BP 160/57; PULSE 105; RESP 18; TEMP 36.8; O2SAT 92
[2022-02-08 22:15] VITALS: BP 152/85; PULSE 103; RESP 24; O2SAT 92
[2022-02-09] VITALS (8 sets, daily range): BP systolic 135–174; BP diastolic 77–99; PULSE 95–107; RESP 18–27; TEMP 36.7; O2SAT 92–97
--- NOTE | 2022-02-09 07:31 | PC.NURSE ---
Pt alert/oriented x3, appears to be at baseline mentation. Denies pain or discomfort. Sinus tach on tele rate low 100s. LS clear. Set up for breakfast and tolerating well. Mo emptied 1200ml for beto colored urine.
[2022-02-09] MEDS: Phenytoin Sodium Extended 100 MG CAPSULE 300 MG PO ×2 (09:38→21:03)
--- NOTE | 2022-02-09 14:22 | MHC.CM.PN ---
Pt live alone on first floor apt, walks independently within apt, has grab bars and uses an electric w/c outside and to run errands close to home, pt is active [facility] and reports he will pay people to help if he needs assistance w/laundry etc. Pt is open to a [employer] and was encouraged to request from his PCP or contact Sánchez as he has Medicaid, pt gave verbal permission to contact Lilia however number listed in [employer] is incorrect, CM attempted to call primary contact as well however jcil has a different name so no message left. Pt reports he is comfortable returning home w/his VNA when cleared for d/c.
--- NOTE | 2022-02-09 15:20 | PC.NURSE ---
spoke w pt, d/c pending ambulance transfer. pt denies any pain. no new orders at this time.
--- NOTE | 2022-02-09 15:39 | PC.NURSE ---
At 1520 This US/PCT called [facility] and booked a BLS transport to go back home per Carmela SABILLON. Charlie aware
--- NOTE | 2022-02-09 18:08 | PC.NURSE ---
spoke w pt, explained no ambulances available until 02/10, no alternative transport home per pt, pt okay with plan to stay tonight w d/c tomorrow.
--- NOTE | 2022-02-09 19:21 | PC.NURSE ---
At 1700 This US/Tech called [facility] to see when transport was coming,I spoke with Dylon and he stated due to staffing there will be no transport tonight,he tried to pass it but with know availability. charge nurse aware
[2022-02-09] MEDS: clonazePAM 1 MG TABLET PO (21:03)
--- NOTE | 2022-02-09 21:15 | PC.NURSE ---
medicated per provider order. pt pending transport home in am.
--- NOTE | 2022-02-09 22:33 | PC.NURSE ---
At 2 [facility] came to transport patient home.
--- NOTE | 2022-02-09 22:48 | PC.NURSE ---
bedolla removed, IV x2 removed, report given to EMS.
== END 2022-02-09 22:51 | disposition home or self-care (01) ==
PROVIDERS: Student in an Organized Health Care Education/Training Program; Emergency Provider Emergency Medicine
DX: R56.9 Unspecified convulsions (principal); R41.82 Altered mental status, unspecified; R07.89 Other chest pain; Z87.891 Personal history of nicotine dependence; Z20.822 Contact with and (suspected) exposure to COVID-19; Z79.899 Other long term (current) drug therapy; Z87.820 Personal history of traumatic brain injury
CPT/HCPCS: 36415; 70450; 71045; 80053; 80185; 80307; 81003; 82077; 82947; 83605; 85025; 85610; 87040; 87635; 93005; 96365; 96375; 99285; J1953; J2060

== ENCOUNTER 2022-08-25 10:40 | Emergency (ER) | payer MEDICARE, MEDICAID, SELFPAY ==
--- NOTE | ~2022-08-25 | XR_ITS ---
EXAMINATION: XR chest 1V CLINICAL INFORMATION: Cough COMPARISON: None TECHNIQUE: XR chest 1V Tubes and lines: None Lungs and pleura: Platelike atelectasis left lung base chronic unchanged. Heart and mediastinum: The mediastinum is within normal limits.. Bones/soft tissue: Skeletal structures included are normal for patient's age. XR/XR chest 1V IMPRESSION: * No radiographic evidence of acute infiltrates or failure. * Platelike atelectasis left lung base unchanged.
[2022-08-25 10:45] VITALS: BP 154/90; PULSE 93; O2SAT 95
[2022-08-25 10:47] VITALS: BP 180/96; PULSE 86; RESP 17; TEMP 36.7; O2SAT 96; BMI 32.3
--- NOTE | 2022-08-25 10:52 | ECG_ITS ---
Test Reason : AMS Blood Pressure : / mmHG Vent. Rate : 080 BPM Atrial Rate : 080 BPM P-R Int : 152 ms QRS Dur : 082 ms QT Int : 372 ms P-R-T Axes : 062 069 056 degrees QTc Int : 429 ms Normal sinus rhythm with sinus arrhythmia Possible Left atrial enlargement Borderline ECG When compared with ECG of 08-FEB-2022 14:08, No significant change was found Referred By: Oma Spaulding Electronically Signed By:DEDRA BALTAZAR
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
[2022-08-25 11:14] LABS: MANUAL DIFF FLAG NO
[2022-08-25 11:15] LABS: Basophils Absolute Auto 0.1 X10*3/uL (0.0-0.2); Basophils Percent Auto 0.7 % (0-2); Eosinophils Absolute Auto 0.4 X10*3/uL (0.0-0.4); Eosinophils Percent Auto 3.5 % (0-4); Hematocrit 48.3 % (42.0-52.0); Hemoglobin 15.6 g/dl (14.0-18.0); Imm Gran Abs Auto 0.03 X10*3/uL (0.00-0.03); Imm Gran Pct Auto 0.3 % (0.0-0.4); Lymphocytes Absolute Auto 1.2 X10*3/uL (1.2-4.9); Lymphocytes Percent Auto 12.3 % (20-40); Mean Corpuscular HGB Conc 32.3 g/dl (31.0-36.0); Mean Corpuscular Hemoglobin 30.3 pg (27.0-33.0); Mean Corpuscular Volume 93.8 fL (80.0-98.0); Mean Platelet Volume 8.2 fL (9.4-12.4); Monocytes Percent Auto 9.9 % (2-11); Neutrophils Absolute Auto 7.4 x10*3/uL (2.0-8.3); Neutrophils Percent Auto 73.3 % (45-73); Platelet Count 328 X10*3/uL (160-400); Red Blood Count 5.15 X10*6/uL (4.60-5.80); Red Cell Distribution Width 11.6 % (11.0-16.0); White Blood Count 10.1 X10*3/uL (4.8-10.8)
--- OUTSIDE RECORDS SUMMARY | 2022-08-25 11:17 | XMS_ITS | Continuity of Care Document ---
:1965 Author Organization [facility] Address [address] [place] [phone]- Care Team Providers Name Role Phone Tremayne Deras Primary Care Physician Encounter [facility] [place] Date(s): 08/16/20 - 08/16/[address] [phone]- Encounter Diagnosis Constipation (Final) - 08/16/20 Urinary retention (Final) - 08/16/20 Discharge Disposition: A-D/C Home Attending Physician: Gloria Lenz DO Admitting Physician: Gloria Lenz DO Referring Physician: Not on Staff, Referring MD Allergies, Adverse Reactions, Alerts Substance Reaction Severity Status NKA Active Medications clonazePAM 1 mg oral tablet 1 tablet = 1 mg, By Mouth, Daily, 0 Refills, Maintenance, 04/16/16 14:44:51 Start Date: 04/16/16 Status: OrderedColace sodium 100 mg oral capsule 1 capsule = 100 mg, By Mouth, 2 times a day, PRN for constipation, # 20 capsule, 0 Refills, Maintenance, Capsule Start Date: 10/03/11 Status: OrderedKeppra 1000 mg oral tablet 1 tablet = 1,000 mg, By Mouth, 2 times a day, # 60 tablet, 0 Refills, Maintenance, 04/19/16 14:59:59, Tablet Start Date: 04/19/16 Status: OrderedMilk of Magnesia Liquid 30 mL, By Mouth, Daily at bedtime, 0 Refills, Maintenance Start Date: 05/02/11 Status: OrderedMiraLax oral powder for reconstitution = 17 Gm, By Mouth, Daily, for 14 days, dissolve in water before taking, # 238 Gm, 0 Refills, Acute 08/30/20 7:34:00 EST, 08/16/20 7:34:00 EST, REC Powder, [facility], Partial fill upon patient request if the prescription is for a schedul... Start Date: 08/16/20 Stop Date: 08/30/20 Status: Orderedphenytoin 200 mg oral capsule, extended release = 200 mg, By Mouth, 2 times a day, # 60 Doses, 0 Refills, Maintenance, 04/19/16 15:00:27, ER Capsule Start Date: 04/19/16 Stop Date: 05/19/16 Status: Orderedsenna 15 mg oral tablet 2 tablet = 30 mg, By Mouth, Daily, PRN for constipation, for 14 days, # 30 tablet, 0 Refills, Acute 08/30/20 7:35:00 EST, 08/16/20 7:35:00 EST, Tablet, [facility], Partial fill upon patient request if the prescription is for a schedule I... Start Date: 08/16/20 Stop Date: 08/30/20 Status: OrderedTopamax 100 mg oral tablet See Instructions, 3 tablet By Mouth in the morning, 2 tablets at bedtime., # 60 Doses, 0 Refills, Maintenance, 04/19/16 15:00:43, Tablet Start Date: 04/19/16 Status: Ordered Problem List Condition Effective Dates Status Health Status Informant Traumatic brain injury(Confirmed) Active Vital Signs Most recent to oldest 1 2 3 [Reference Range]: Oxygen Saturation [94-100 %] 99 % 99 % 98 % (08/16/20 7:59 AM) (08/16/20 7:00 AM) (08/16/20 5:44 AM) Pulse Rate [55-90 bpm] 80 bpm 82 bpm 92 bpm (08/16/20 7:59 AM) (08/16/20 7:00 AM) *H* (08/16/20 5:44 A M) Blood Pressure [90-138/55-84 130/74 mm Hg 130/93 mm Hg 126 /92 mm Hg mm Hg] (08/16/20 7:59 AM) (08/16/20 7:00 AM) (08/16/20 5:44 AM) Respiratory Rate [16-30 19 br/min 18 br/min 16 br/mi n br/min] (08/16/20 7:59 AM) (08/16/20 7:00 AM) (08/16/20 5:44 AM) Temperature [96.8-100.4 98.7 DegF 98.8 DegF DegF] (08/16/20 7:59 AM) (08/16/20 4:02 AM) Mode of Delivery (Oxygen) Room air Room air Room a ir (08/16/20 7:59 AM) (08/16/20 7:00 AM) (08/16/20 5:44 AM) Blood pressure sites Arm, right Arm, right Arm, right (08/16/20 7:59 AM) (08/16/20 7:00 AM) (08/16/20 5:44 AM) Temperature Route Oral Oral (08/16/20 7:59 AM) (08/16/20 4:02 AM)
--- OUTSIDE RECORDS SUMMARY | 2022-08-25 11:17 | XMS_ITS | Continuity of Care Document ---
:1965 Author Organization [facility] Address [address] [place] [address]- Care Team Providers Name Role Phone Tremayne Jones MD Primary Care Physician Encounter [facility] [place] Date(s): 01/12/21 - 01/12/[address] [address]- Discharge Disposition: A-D/C Home Attending Physician: David Prescott DO Admitting Physician: David Prescott DO Referring Physician: Not on Staff, Referring [...] Refills, Maintenance, Capsule Start Date: 10/03/11 Status: OrderedFleet Enema 19 gm-7 gm rectal enema 1 each, Rectally, Once, # 118 mL, 0 Refills, Soft Stop, 12/13/20 11:38:00 EDT, Enema, [id number], Partial fill upon patient request if the prescription is for a schedule II opioid drug., 1 each Rectally Once, 172.72, cm, 09/17/20 12:47:00 E... Start Date: 12/13/20 Status: OrderedFleet Enema 19 gm-7 gm rectal enema 1 each, Rectally, Once, # 118 mL, 0 Refills, Soft Stop, 12/13/20 14:22:00 EDT, Enema, [id number], Partial fill upon patient request if the prescription is for a schedule II opioid drug., 1 each Rectally Once, 172.72, cm, 09/17/20 12:4... Start Date: 12/13/20 Status: OrderedGolytely - oral powder for reconstitution 240 mL, By Mouth, Daily, # 480 mL, 0 Refills, Maintenance, 09/24/20 5:49:00 EST, REC Powder, [facility], Partial fill upon patient request if the prescription is for a schedule II opioid drug., 240 mL By Mouth Daily, 172.72, cm, 09/17/20 12... Start Date: 09/24/20 Status: OrderedKeppra 1000 mg oral tablet 1 tablet = 1,000 mg, By Mouth, 2 times a day, # 60 tablet, 0 Refills, Maintenance, 04/19/16 14:59:59, Tablet Start Date: 04/19/16 Status: OrderedMilk of Magnesia Liquid 30 mL, By Mouth, Daily at bedtime, 0 Refills, Maintenance Start Date: 05/02/11 Status: OrderedMiraLax oral powder for reconstitution = 17 Gm, By Mouth, Daily, dissolve in water before taking, # 527 Gm, 0 Refills, Maintenance, 09/27/20 15:04:00 EST, REC Powder, [facility], Partial fill upon patient request if the prescription is for a schedule II opioid drug., 17 Gm By Mo... Start Date: 09/27/20 Status: Orderedphenytoin 200 mg oral capsule, extended release = 200 mg, By Mouth, 2 times a day, # 60 Doses, 0 Refills, Maintenance, 04/19/16 15:00:27, ER Capsule Start Date: 04/19/16 Stop Date: 05/19/16 Status: Orderedsenna 15 mg oral tablet, chewable 2 tablet = 30 mg, Chew, 2 times a day, PRN for constipation, # 48 tablet, 0 Refills, Maintenance, 09/24/20 5:49:00 EST, Chew Tablet, [facility], Partial fill upon patient request if the prescription is for a schedule II opioid drug., 172.72... Start Date: 09/24/20 Status: OrderedTopamax 100 mg oral tablet See Instructions, 3 tablet By Mouth in the morning, 2 tablets at bedtime., # 60 Doses, 0 Refills, Maintenance, 04/19/16 15:00:43, Tablet Start Date: 04/19/16 Status: Ordered Problem List Condition Effective Dates Status Health Status Informant Traumatic brain injury(Confirmed) Active Vital Signs Most recent to oldest [Reference Range]: 1 2 Oxygen Saturation [94-100 %] 98 % 97 % (01/12/21 11:16 AM) (01/12/21 10:13 AM) Pulse Rate [55-90 bpm] 78 bpm 84 bpm (01/12/21 11:16 AM) (01/12/21 10:13 AM) Blood Pressure [90-138/55-84 mm Hg] 174/97 mm Hg 180/ 90 mm Hg *H* *H* (01/12/21 11:16 AM) (01/12/21 10:13 AM) Respiratory Rate [16-30 br/min] 18 br/min 18 br/mi n (01/12/21 11:16 AM) (01/12/21 10:13 AM) Temperature [96.8-100.4 DegF] 99.0 DegF 98.6 DegF (01/12/21 11:16 AM) (01/12/21 10:13 AM) Mode of Delivery (Oxygen) Room air Room air (01/12/21 11:16 AM) (01/12/21 10:13 AM) Blood pressure sites Arm, left Arm, left (01/12/21 11:16 AM) (01/12/21 10:13 AM) Temperature Route Oral Oral (01/12/21 11:16 AM) (01/12/21 10:13 AM) Social History Social History Type Response Smoking Status Former smoker, quit more jenna n 30 days ago entered on: 09/17/20 Sex Male
--- OUTSIDE RECORDS SUMMARY | 2022-08-25 11:18 | XMS_ITS | Continuity of Care Document ---
:1965 Author Organization [facility] Address [address] [place] [id number]- Care Team Providers Name Role Phone Tremayne Jones MD Primary Care Physician [place] [facility] [place] - 05/06/[address] [address]- Discharge Disposition: A-D/C Home Attending Physician: Lilia Ennis MD Admitting Physician: Lilia Ennis MD Referring Physician: Not on Staff, Referring MD Allergies, Adverse Reactions, Alerts No Known Allergies Immunizations Given and Recorded Vaccine Date Status Refusal Reason tetanus/diphtheria/pertussis, acel(Tdap) 11/29/20 Recorde d tetanus-diphtheria toxoids (Td) 12/19/16 Recorded tetanus-diphtheria toxoids (Td) 04/16/01 Recorded Medications clonazePAM 1 mg oral tablet 1 tablet = 1 mg, By Mouth, Daily at bedtime, 0 Refills, Maintenance, 01/09/22 12:55:00 EDT, Partial fill upon patient request if the prescription is for a schedule II opioid drug. Start Date: 01/09/22 Status: OrderedColace sodium 100 mg oral capsule 1 capsule = 100 mg, By Mouth, 2 times a day, PRN for constipation, # 20 capsule, 0 Refills, Maintenance, Capsule Start Date: 10/03/11 Status: OrderedDilantin 100 mg oral capsule, extended release 3 capsule = 300 mg, By Mouth, 2 times a day, # 180 capsule, 0 Refills, Maintenance, 05/06/22 16:19:00 EDT, CR Capsule, [id number], Partial fill upon patient request if the prescription is for a schedule II opioid drug., 172, cm, 05/03/21 3:... Start Date: 05/06/22 Stop Date: 06/05/22 Status: OrderedMiraLax Powder 1 pack/packet = 17 Gm, By Mouth, Daily, PRN Constipation, 0 Refills, Maintenance, 05/03/21 8:49:00 EDT, Powder, Partial fill upon patient request if the prescription is for a schedule II opioid drug. Start Date: 05/03/21 Status: Orderedphenytoin 200 mg oral capsule, extended release = 200 mg, By Mouth, 2 times a day, # 60 Doses, 0 Refills, Maintenance, 04/19/16 15:00:27, ER Capsule Start Date: 04/19/16 Stop Date: 05/19/16 Status: Ordered Problem List Condition Effective Dates Status Health Status Informant Traumatic brain injury(Confirmed) Active Results Radiology Reports Exam Date Time Procedure Performing Provider Status 05/06/22 2:32 PM Tibia/Fibula 2 Views Right Ho Lowe; Aut h (Verified) Notes:(Tibia/Fibula 2 Views Right) Reason For Exam: with Pain;TraumaRESULT: Tibia/Fibula 2 Views Right Tibia/Fibula 2 Views Right Hx of Present Illness: pt states he is here for a seizure states he feels fine now states has not been sleeping much states no pain at this time; Reason: Trauma; with Pain; Clinical Question(s): Fracture COMPARISON: None. FINDINGS: No fractures or bone lesions. Alignment and bone mineralization are preserved. Mild narrowing of the medial tibiofemoral compartments with spurring is noted. The tibiotalar joint appears intact. Spurring of the tibiotalar joint is also identified. There is moderate to severe narrowing of the subtalar joint posteriorly with spurring. Spurring of the dorsal tarsal bones is also noted. Normal soft tissues. IMPRESSION: No acute fracture. Degenerative changes at the subtalar joint and medial and lateral tibial femoral compartments as described. WSN: [id number] Ordering Physician: Mag Wheatley Dictated By: Yesenia Delgado MD Dictated Date/Time: 05/06/22 2:35 pm Reviewed By: Yesenia Delgado MD Signed By: Yesenia Delgado MD Signed Date/Time: 05/06/22 2:35 pm Transcribed By: NISHA Transcribed Date/Time: 05/06/22 2:33 pm Vital Signs Most recent to oldest 1 2 3 [Reference Range]: Oxygen Saturation [94-100 %] 97 % 94 % 98 % (05/06/22 8:54 PM) (05/06/22 6:00 PM) (05/06/22 3:5 2 PM) Pulse Rate [55-90 bpm] 91 bpm 94 bpm 86 bpm *H* *H* (05/06/22 3:52 PM ) (05/06/22 8:54 PM) (05/06/22 6:00 PM) Blood Pressure [90-138/55-84 mm 158/69 mm Hg 134/89 mm Hg 168/97 mm Hg Hg] *H* (05/06/22 6:00 PM) *H* (05/06/22 8:54 PM) (05/06/22 3:52 PM) Respiratory Rate [16-30 br/min] 18 br/min 20 br/min 19 br/min (05/06/22 8:54 PM) (05/06/22 6:00 PM) (05/06/22 3:5 2 PM) Temperature [96.8-100.4 DegF] 98.3 DegF 98.2 DegF 98 .2 DegF (05/06/22 6:00 PM) (05/06/22 3:52 PM) (05/06/22 1:5 9 PM) Liters per Minute 0 L/min 0 L/min 0 L/min (05/06/22 6:00 PM) (05/06/22 3:52 PM) (05/06/22 1:5 9 PM) Mode of Delivery (Oxygen) Room air Room air Room a ir (05/06/22 8:54 PM) (05/06/22 6:00 PM) (05/06/22 3:5 2 PM) Blood pressure sites Arm, left Arm, left Arm, left (05/06/22 8:54 PM) (05/06/22 6:00 PM) (05/06/22 3:5 2 PM) Temperature Route Oral Oral Oral (05/06/22 6:00 PM) (05/06/22 3:52 PM) (05/06/22 1:5 9 PM) Social History Social History Type Response Smoking Status Former smoker, quit more jenna n 30 days ago entered on: 04/27/21 Sex Male Note BHSPowerscribe , CIS S: TRANSCRIBE Yesenia Delgado MD: VERIFY Event Display: Result: Authored Date: [id number] Tibia/Fibula 2 Views Right Hx of Present Illness: pt states he is here for a seizure states he feels fine now states has not been sleeping much states no pain at this time; Reason: Trauma; with Pain; Clinical Question(s): Fracture COMPARISON: None. FINDINGS: No fractures or bone lesions. Alignment and bone mineralization are preserved. Mild narrowing of the medial tibiofemoral compartments with spurring is noted. The tibiotalar joint appears intact. Spurring of the tibiotalar joint is also identified. There is moderate to severe narrowing of the subtalar joint posteriorly with spurring. Spurring of the dorsal tarsal bones is also noted. Normal soft tissues. IMPRESSION: No acute fracture. Degenerative changes at the subtalar joint and medial and lateral tibial femoral compartments as described. WSN: [id number] Ordering Physician: Mag Wheatley Dictated By: Yesenia Delgado MD Dictated Date/Time: 05/06/22 2:35 pm Reviewed By: Yesenia Delgado MD Signed By: Yesenia Delgado MD Signed Date/Time: 05/06/22 2:35 pm Transcribed By: NISHA Transcribed Date/Time: 05/06/22 2:33 pm Care Team PersonnelName: Tremayne Jones MD Address: [address] [place] [address] [place] [address]
--- OUTSIDE RECORDS SUMMARY | 2022-08-25 11:18 | XMS_ITS | Continuity of Care Document ---
:1965 Author Organization [facility] Address [address] [place] [address]- Care Team Providers Name Role Phone Tremayne Jones MD Primary Care Physician [place] [facility] [place] 03/28/[address] [address]- Encounter Diagnosis Seizure (Final) - 03/28/22 Fall (Final) - 03/28/22 Discharge Disposition: A-D/C Home Attending Physician: Lise Almendarez MD Admitting Physician: Lise Almendarez MD Referring Physician: Not on Staff, Referring [...] Refills, Maintenance, Capsule Start Date: 10/03/11 Status: OrderedMiraLax Powder 1 pack/packet = 17 [...] Vital Signs Most recent to oldest [Reference 1 2 3 Range]: Oxygen Saturation [94-100 %] 97 % 98 % 95 % (03/28/22 7:31 PM) (03/28/22 7:01 PM) (03/28/22 3:58 P M) Pulse Rate [55-90 bpm] 100 bpm 93 bpm 102 bpm *H* *H* *H* (03/28/22 7:01 PM) (03/28/22 3:58 PM) (03/28/22 12:41 PM) Blood Pressure [90-138/55-84 mm 163/90 mm Hg 164/88 mm Hg 166/90 mm Hg Hg] *H* *H* *H* (03/28/22 7:01 PM) (03/28/22 3:58 PM) (03/28/22 12:41 PM) Respiratory Rate [16-30 br/min] 18 br/min 18 br/min 18 br/min (03/28/22 7:31 PM) (03/28/22 7:01 PM) (03/28/22 3:58 P M) Temperature [96.8-100.4 DegF] 98.1 DegF 98.2 DegF 98 .6 DegF (03/28/22 7:01 PM) (03/28/22 3:58 PM) (03/28/22 12:41 PM) Mode of Delivery (Oxygen) Room air Room air Room a ir (03/28/22 7:31 PM) (03/28/22 7:01 PM) (03/28/22 3:58 P M) Blood pressure sites Arm, left (03/28/22 3:58 PM) Temperature Route Oral Oral Oral (03/28/22 7:01 PM) (03/28/22 3:58 PM) (03/28/22 12:41 PM) Social History Social History Type Response Smoking Status Former smoker, quit more jenna n 30 days ago entered on: 04/27/21 Sex Male
--- OUTSIDE RECORDS SUMMARY | 2022-08-25 11:18 | XMS_ITS | Continuity of Care Document ---
:1965 Author Organization [facility] Address [address] [place] [address]- Care Team Providers Name Role Phone Karen BENITEZ, Tremayne Read Primary Care Physician [place] [facility] [place] [facility] [address] [place] [address] Attending Physician: Yasmin Jones Admitting Physician: AdmYasmin aldridge Referring Physician: AdmtrYasmin Allergies, Adverse Reactions, Alerts Substance Reaction Severity [...] Refills, Maintenance, Capsule Start Date: 10/03/11 Status: OrderedGolytely - oral powder for reconstitution 240 mL, By Mouth, Daily, # 480 mL, 0 Refills, Maintenance, 09/24/20 5:49:00 EST, REC Powder, [facility], Partial fill upon patient request if [...] Refills, Maintenance, 09/27/20 15:04:00 EST, REC Powder, [facility], Partial fill upon patient request [...] Refills, Maintenance, 09/24/20 5:49:00 EST, Chew Tablet, [facility], Partial fill upon patient request [...] Health Status Informant Traumatic brain injury(Confirmed) Active Social History Social History Type Response Smoking Status Former smoker, quit more jenna n 30 days ago entered on: 09/17/20 Sex Male
--- OUTSIDE RECORDS SUMMARY | 2022-08-25 11:18 | XMS_ITS | Continuity of Care Document ---
:1965 Author Organization [facility] Address [address] [place] [address]- Care Team Providers Name Role Phone Tremayne Jones MD Primary Care Physician [place] [facility] [place]20 [facility] [address] [place] [id number] Attending Physician: Dequan Menjivar MD Admitting Physician: Dequan Menjivar MD Referring Physician: Tremayne Jones MD Allergies, Adverse Reactions, Alerts Substance Reaction [...] Refills, Maintenance, 09/24/20 5:49:00 EST, REC Powder, [facility], Partial fill upon patient request if [...] Refills, Maintenance, 09/27/20 15:04:00 EST, REC Powder, [facility], Partial fill upon patient [...] Refills, Maintenance, 09/24/20 5:49:00 EST, Chew Tablet, [facility], Partial fill upon patient [...]
--- OUTSIDE RECORDS SUMMARY | 2022-08-25 11:18 | XMS_ITS | Continuity of Care Document ---
:1965 Author Organization [facility] Address [address] [place] [address]- Care Team Providers Name Role Phone Tremayne Jones MD Primary Care Physician Encounter [facility] [place] Date(s): 06/20/22 - 06/20/[address] [address]- Encounter Diagnosis Encounter for removal of sutures (Final) - 06/20/22 Discharge Disposition: A-D/C Home Attending Physician: Josephine Vallejo DO Admitting Physician: Josephine Vallejo DO Referring Physician: Not on Staff, Referring [...] Refills, Maintenance, 05/06/22 16:19:00 EDT, CR Capsule, [facility], Partial fill upon patient request if the [...] Date: 05/19/16 Status: Ordered Problem List Condition Confirmation Course Effective Dates Status Health Stat us Informant Traumatic brain Confirmed Active injury Vital Signs Most recent to oldest 1 2 3 [Reference Range]: Height 168 cm 168 cm 168 cm (06/20/22 12:36 PM) (06/20/22 12:25 PM) ( 11:30 AM) Weight 82 kg 82 kg 82 kg (06/20/22 12:36 PM) (06/20/22 12:25 PM) ( 11:30 AM) Oxygen Saturation [94-100 95 % 100 % 96 % %] (06/20/22 12:36 PM) (06/20/22 11:30 AM) ( 2 10:52 AM) Pulse Rate [55-90 bpm] 95 bpm 96 bpm 94 bpm *H* *H* *H* (06/20/22 12:36 PM) (06/20/22 11:30 AM) ( 10:52 AM) Body Mass Index 29.05 kg/m2 [18.5-24.99 kg/m2] *H* (06/20/22 11:30 AM) Blood Pressure 145/88 mm Hg 149/97 mm Hg [90-138/55-84 mm Hg] *H* *H* (06/20/22 12:36 PM) (06/20/22 11:30 AM) Respiratory Rate [16-30 17 br/min 16 br/min br/min] (06/20/22 12:36 PM) (06/20/22 11:30 AM) Temperature [96.8-100.4 98.1 DegF 97.9 DegF DegF] (06/20/22 12:36 PM) (06/20/22 11:30 AM) Mode of Delivery (Oxygen) Room air Room air Room a ir (06/20/22 12:36 PM) (06/20/22 11:30 AM) ( 2 10:52 AM) Blood pressure sites Arm, left Arm, left (06/20/22 12:36 PM) (06/20/22 11:30 AM) Temperature Route Oral Oral (06/20/22 12:36 PM) (06/20/22 11:30 AM) Weight Obtained Via Patient/family stated (06/20/22 11:30 AM) Social History Social History Type Response Smoking Status Former smoker, quit more jenna n 30 days ago entered on: 04/27/21 Sex Patient Care team information PersonnelName: Karen BENITEZ, Tremayne Read Address: Address: [address] [place] [address] [address] [place] [address]
--- OUTSIDE RECORDS SUMMARY | 2022-08-25 11:18 | XMS_ITS | Continuity of Care Document ---
:1965 Author Organization [facility] Address [address] [place] [address]- Care Team Providers Name Role Phone Tremayne Jones MD Primary Care Physician [place] [facility] [place] 12/30/[address] [address]- Encounter Diagnosis Chronic constipation (Final) - 12/30/20 Discharge Disposition: A-D/C Home Attending Physician: Carmelo Mason MD Admitting Physician: Carmelo Mason MD Referring Physician: Not on Staff, Referring [...] Refills, Soft Stop, 12/13/20 11:38:00 EDT, Enema, [facility], Partial fill upon patient request if the prescription is for a schedule II opioid drug., 1 each Rectally Once, 172.72, cm, 09/17/20 12:47:00 E... Start Date: 12/13/20 Status: OrderedFleet Enema 19 gm-7 gm rectal enema 1 each, Rectally, Once, # 118 mL, 0 Refills, Soft Stop, 12/13/20 14:22:00 EDT, Enema, [id number], Partial fill upon patient request if the prescription is for a schedule II opioid drug., 1 each Rectally Once, 172.72, cm, 09/17/20 12:4... Start Date: 12/13/20 Status: OrderedGolytely - oral powder for reconstitution 240 mL, By Mouth, Daily, # 480 mL, 0 Refills, Maintenance, 09/24/20 5:49:00 EST, REC Powder, [facility], Partial fill upon patient request if [...] 3 [Reference Range]: Oxygen Saturation [94-100 %] 100 % 100 % 97 % (12/30/20 1:50 PM) (12/30/20 11:00 AM) (12/30/20 5:39 AM) Pulse Rate [55-90 bpm] 80 bpm 84 bpm 84 bpm (12/30/20 1:50 PM) (12/30/20 11:00 AM) (12/30/20 5:39 AM) Blood Pressure [90-138/55-84 mm 130/70 mm Hg 134/90 mm Hg 158/92 mm Hg Hg] (12/30/20 1:50 PM) (12/30/20 11:00 AM) *H* (12/30/20 5:39 AM) Respiratory Rate [16-30 br/min] 18 br/min 18 br/min 16 br/min (12/30/20 1:50 PM) (12/30/20 11:00 AM) (12/30/20 5:39 AM) Temperature [96.8-100.4 DegF] 98.0 DegF 98.5 DegF 98 .6 DegF (12/30/20 5:39 AM) (12/30/20 1:56 AM) (12/29/20 10:40 PM) Mode of Delivery (Oxygen) Room air Room air Room a ir (12/30/20 11:00 AM) (12/30/20 5:39 AM) (12/30/20 1:56 AM) Blood pressure sites Arm, left Arm, left Arm, right (12/30/20 11:00 AM) (12/30/20 5:39 AM) (12/30/20 1:56 AM) Temperature Route Oral Oral Oral (12/30/20 5:39 AM) (12/30/20 1:56 AM) (12/29/20 10:40 PM) Social History Social History Type Response Smoking Status Former smoker, quit more jenna n 30 days ago entered on: 09/17/20 Sex Male
--- OUTSIDE RECORDS SUMMARY | 2022-08-25 11:18 | XMS_ITS | Continuity of Care Document ---
:1965 Author Organization [facility] Address [address] [place] [address]- Care Team Providers Name Role Phone Tremayne Jones MD Primary Care Physician [place] [facility] [place] Date(s[place] 09/23/20 - 09/24/[address] [address]- Encounter Diagnosis Constipation (Final) - 09/24/20 Discharge Disposition: A-D/C Home Attending Physician: Gloria [...] Refills, Maintenance, 09/24/20 5:49:00 EST, REC Powder, [facility], Partial fill upon patient request if [...] 0 Refills, Maintenance Start Date: 05/02/11 Status: Orderedphenytoin 200 mg oral capsule, extended [...] Refills, Maintenance, 09/24/20 5:49:00 EST, Chew Tablet, [facility], Partial fill upon patient request [...] 3 [Reference Range]: Oxygen Saturation [94-100 %] 96 % 99 % 95 % (09/24/20 7:03 AM) (09/24/20 5:57 AM) (09/23/20 11:56 PM) Pulse Rate [55-90 bpm] 88 bpm 98 bpm (09/24/20 7:03 AM) *H* (09/23/20 11:56 PM) Blood Pressure [90-138/55-84 175/95 mm Hg 154/95 mm Hg 160 /96 mm Hg mm Hg] *H* *H* *H* (09/24/20 7:03 AM) (09/24/20 5:57 AM) (09/23/20 11:56 PM) Respiratory Rate [16-30 17 br/min 16 br/min 18 br/mi n br/min] (09/24/20 7:03 AM) (09/24/20 5:57 AM) (09/23/20 11:56 PM) Temperature [96.8-100.4 97.6 DegF DegF] (09/23/20 11:56 PM) Mode of Delivery (Oxygen) Room air Room air Room a ir (09/24/20 7:03 AM) (09/24/20 5:57 AM) (09/23/20 11:56 PM) Blood pressure sites Arm, left Arm, right Arm, left (09/24/20 7:03 AM) (09/24/20 5:57 AM) (09/23/20 11:56 PM) Temperature Route Oral (09/23/20 11:56 PM) Social History Social History Type Response Smoking Status Former smoker, quit more jenna n 30 days ago entered on: 09/17/20 Sex
--- OUTSIDE RECORDS SUMMARY | 2022-08-25 11:18 | XMS_ITS | Continuity of Care Document ---
:1965 Author Organization Address [address] [place] [address]- Care Team Providers Name Role Phone Tremayne Jones MD Primary Care Physician Encounter [facility] [place] Date(s): 07/22/22 - 07/22/[address] [address]- Encounter Diagnosis Seizure (Final) - 07/22/22 Abrasion (Final) - 07/22/22 TBI (traumatic brain injury) (Final) - 07/22/22 Seizure (Final) - 07/22/22 Discharge Disposition: A-D/C Home Attending Physician: Sebastian Headley DO Admitting Physician: Sebastian Headley DO Referring Physician: Not on Staff, Referring [...] Status: OrderedColace sodium 100 mg oral capsule 100 mg, 1, capsule, By Mouth, 2 times a day, PRN, # 20 capsule, Refills 0, Tot. Refills 0, Maintenance, for constipation, 06/25/22 12:32:00 EDT, Route to Pharmacy Electronically, [id number],Partial fill upon patient request if the prescrip... Start Date: 06/25/22 Stop Date: 06/28/22 Status: OrderedDilantin 100 mg oral capsule, extended release 3 capsule = 300 mg, By Mouth, 2 times a day, # 180 capsule, 0 Refills, Maintenance, 05/06/22 16:19:00 EDT, CR Capsule, [facility], Partial fill upon patient request if the prescription is for a schedule II opioid drug., 172, cm, 05/03/21 3:... Start Date: 05/06/22 Stop Date: 06/05/22 Status: OrderedKeppra 750 mg oral tablet 1 tablet = 750 mg, By Mouth, 2 times a day, # 180 tablet, 0 Refills, Maintenance, 07/22/22 16:42:00 EST, Tablet, [facility] 3, Partial fill upon patient request if the prescription is for aschedule II opioid drug., 173, cm, 07/04/22 11:00... Start Date: 07/22/22 Status: OrderedKeppra 750 mg oral tablet 1 tablet = 750 mg, By Mouth, 2 times a day, # 180 tablet, 0 Refills, Maintenance, 07/15/22 16:29:00 EST, Tablet, [facility], Partial fill upon patient request if the prescription is for a schedule II opioid drug., 173, cm, 07/04/22 11:00:00... Start Date: 07/15/22 Status: OrderedKlonoPIN 0.5 mg oral tablet 1 tablet = 0.5 mg, By Mouth, 3 times a day, 0 Refills, Maintenance, 07/04/22 7:59:00 EST, Partial fill upon patient request if the prescription is for a schedule II opioid drug. Start Date: 07/04/22 Status: OrderedMilk of Magnesia 8% oral suspension 30 mL = 2.4 Gm, By Mouth, Once, PRN for constipation, # 30 mL, 0 Refills, Soft Stop, 06/25/22 12:32:00 EDT, Suspension, [facility], Partial fill upon patient request if the prescription is for a schedule II opioid drug., 168, cm, 06/20/22 1... Start Date: 06/25/22 Status: OrderedMiraLax Powder 1 pack/packet = 17 Gm, By Mouth, Daily, PRN Constipation, 0 Refills, Maintenance, 05/03/21 8:49:00 EDT, Powder, Partial fill upon patient request if the prescription is for a schedule II opioid drug. Start Date: 05/03/21 Status: Orderedphenytoin 100 mg oral capsule, extended release 3 capsule = 300 mg, By Mouth, 2 times a day, # 180 capsule, 0 Refills, Maintenance, 07/22/22 16:48:00 EST, CR Capsule, [facility] 3, Partial fill upon patient request if the prescription isfor a schedule II opioid drug., 173, cm, 07/04/22... Start Date: 07/22/22 Stop Date: 08/21/22 Status: Orderedphenytoin 100 mg oral capsule, extended release 3 capsule = 300 mg, By Mouth, 2 times a day, # 100 capsule, 0 Refills, Maintenance, 07/22/22 16:51:00 EST, CR Capsule, [facility], Partial fill upon patient request if the prescription isfor a schedule II opioid drug., 173, cm, 07/04/22... Start Date: 07/22/22 Status: Orderedphenytoin 200 mg oral capsule, extended release = 200 mg, By Mouth, 2 times a day, # 60 Doses, 0 Refills, Maintenance, 04/19/16 15:00:27, ER Capsule Start Date: 04/19/16 Stop Date: 05/19/16 Status: Orderedphenytoin 300 mg oral capsule, extended release 1 capsule = 300 mg, By Mouth, 2 times a day, # 30 capsule, 0 Refills, Maintenance, 07/22/22 16:41:00EST, CR Capsule, [facility], Partial fill upon patient request if the prescription is for a schedule II opioid drug., 173, cm, 07/04/22... Start Date: 07/22/22 Status: Orderedphenytoin 300 mg oral capsule, extended release 1 capsule = 300 mg, By Mouth, Every 12 hours, # 90 capsule, 0 Refills, Maintenance, 07/15/22 16:28:00 EST, CR Capsule, [facility] 5278, Partial fill upon patient request if the prescription is for a schedule II opioid drug., 173, cm, 07/04/22 11... Start Date: 07/15/22 Status: Ordered Problem List Condition Confirmation Course Effective Dates Status Health Stat us Informant Traumatic brain Confirmed Active injury Vital Signs Most recent to oldest 1 2 3 [Reference Range]: Oxygen Saturation [94-100 %] 97 % 96 % 100 % (07/22/22 6:00 PM) (07/22/22 4:28 PM) (07/22/22 2:28 PM) Pulse Rate [55-90 bpm] 100 bpm 95 bpm 95 bpm *H* *H* *H* (07/22/22 6:00 PM) (07/22/22 4:28 PM) (07/22/22 2:28 PM) Blood Pressure [90-138/55-84 161/84 mm Hg 174/82 mm Hg 154 /108 mm Hg mm Hg] *H* *H* *H* (07/22/22 6:00 PM) (07/22/22 4:28 PM) (07/22/22 2:28 PM) Respiratory Rate [16-30 18 br/min 18 br/min 18 br/mi n br/min] (07/22/22 6:00 PM) (07/22/22 4:28 PM) (07/22/22 2:28 PM) Temperature [96.8-100.4 99.4 DegF 99.0 DegF 98.4 Deg F DegF] (07/22/22 6:00 PM) (07/22/22 4:28 PM) (07/22/22 2:28 PM) Mode of Delivery (Oxygen) Room air Room air (07/22/22 6:00 PM) (07/22/22 4:28 PM) Blood pressure sites Arm, left Arm, right Arm, left (07/22/22 6:00 PM) (07/22/22 4:28 PM) (07/22/22 2:28 PM) Temperature Route Oral Oral Oral (07/22/22 6:00 PM) (07/22/22 4:28 PM) (07/22/22 2:28 PM) Social History Social History Type Response Smoking Status Former smoker, quit more jenna n 30 days ago entered on: 04/27/21 Sex Patient Care team information Care Team PersonnelName: Tremayne Jones MD Position: [facility] Neurology MD Member Role: PCP Address: Address: [address] [place] [address] [place] [address]- [place] Name: Tiny Scott RN Position: [facility] AMB Nurse Member Role: Primary Care Nurse Name: Chico Mendoza RN Position: [facility] RN Member Role: Primary Care Nurse Name: Wendy Whitt RN Position: [facility] RN Member Role: Primary Care Nurse Name: Dylan Carranza RN Position: [facility] ED RN W/OE and Tasks Member Role: Primary Care Nurse Name: Goldie Calix Position: [facility] ED TA [facility] Name: Moy Rondon RN Position: [facility] ED RN W/OE and Tasks Member Role: Patient Care Provider Name: Moy Vera LPN Position: [facility] ED RN W/OE and Tasks Member Role: Patient Care Provider Name: Becca Queen MD Position: [facility] Resident Member Role: Chart Review Address: Address: [address] [place] [address] [place] [address]- Name: Sebastian Headley DO Position: [facility] Resident Member Role: Admitting Physician Address: Address: [address] [place] [address] Dept [place] [address]- Care Team Related PersonsName: SLADE FELICIANO Address: home [address] [place] [address] Name: SHARIF FELICIANO Address: [place] [address]
--- OUTSIDE RECORDS SUMMARY | 2022-08-25 11:18 | XMS_ITS | Continuity of Care Document ---
:1965 Author Organization [facility] Address [address] [place] [address]- Care Team Providers Name Role Phone Tremayne Jones MD Primary Care Physician Encounter [facility] [place] Date(s): 12/16/21 - 12/17/[address] [address]- Encounter Diagnosis Seizure (Final) - 12/17/21 Discharge Disposition: A-D/C Home Attending Physician: Maryuri Dawson DO Admitting Physician: Maryuri Dawson DO Referring Physician: Not on Staff, Referring MD Allergies, Adverse Reactions, Alerts No Known Allergies Immunizations Given and Recorded Vaccine Date Status Refusal Reason tetanus/diphtheria/pertussis, acel(Tdap) 11/29/20 Recorde d tetanus-diphtheria toxoids (Td) 12/19/16 Recorded tetanus-diphtheria toxoids (Td) 04/16/01 Recorded Medications Colace sodium 100 mg oral capsule 1 capsule [...] 3 [Reference Range]: Oxygen Saturation [94-100 %] 98 % 96 % 100 % (12/17/21 2:15 AM) (12/17/21 12:27 AM) (12/16/21 7: 59 PM) Pulse Rate [55-90 bpm] 97 bpm 99 bpm 101 bpm *H* *H* *H* (12/17/21 2:15 AM) (12/17/21:27 AM) (12/16/21 7: 59 PM) Blood Pressure [90-138/55-84 150/99 mm Hg 154/108 mm Hg 167 /103 mm Hg mm Hg] *H* *H* *H* (12/17/21 2:15 AM) (12/17/21:27 AM) (12/16/21 7: 59 PM) Respiratory Rate [16-30 18 br/min 19 br/min 18 br/mi n br/min] (12/17/21 2:15 AM) (12/17/21 12:27 AM) (12/16/21 7: 59 PM) Temperature [96.8-100.4 DegF] 98.0 DegF 98.2 DegF 98 .3 DegF (12/17/21 2:15 AM) (12/17/21:27 AM) (12/16/21 7: 59 PM) Mode of Delivery (Oxygen) Room air Room air Room a ir (12/17/21 2:15 AM) (12/17/21:27 AM) (12/16/21 7: 59 PM) Temperature Route Oral Oral Oral (12/17/21 2:15 AM) (12/17/21 12:27 AM) (12/16/21 7: 59 PM) Social History Social History Type Response Smoking Status Former smoker, quit more jenna n 30 days ago entered on: 04/27/21 Sex Male
--- OUTSIDE RECORDS SUMMARY | 2022-08-25 11:18 | XMS_ITS | Continuity of Care Document ---
:1965 Author Organization [facility] Address [address] [place] [address]- Care Team Providers Name Role Phone Tremayne Jones MD Primary Care Physician Encounter [facility] [place] Date(s): 09/17/20 - 09/17/[address] [address]- Encounter Diagnosis Seizure (Final) - 09/17/20 Discharge Disposition: A-D/C Home Attending Physician: Nik Meek MD Admitting Physician: Nik Meek MD Referring Physician: Not on Staff, Referring [...] Start Date: 04/19/16 Stop Date: 05/19/16 Status: OrderedTopamax 100 mg oral tablet See Instructions, 3 tablet By Mouth in the morning, 2 tablets at bedtime., # 60 Doses, 0 Refills, Maintenance, 04/19/16 15:00:43, Tablet Start Date: 04/19/16 Status: Ordered Problem List Condition Effective Dates Status Health Status Informant Traumatic brain injury(Confirmed) Active Vital Signs Most recent to oldest [Reference Range]: 1 2 Height 172.72 cm (09/17/20 12:47 PM) Weight 90.4 kg (09/17/20 12:47 PM) Oxygen Saturation [94-100 %] 97 % 97 % (09/17/20 3:26 PM) (09/17/20 12:47 PM) Pulse Rate [55-90 bpm] 98 bpm 92 bpm *H* *H* (09/17/20 3:26 PM) (09/17/20 12:47 PM) Blood Pressure [90-138/55-84 mm Hg] 149/84 mm Hg 154/ 94 mm Hg *H* *H* (09/17/20 3:26 PM) (09/17/20 12:47 PM) Respiratory Rate [16-30 br/min] 18 br/min 15 br/mi n (09/17/20 3:26 PM) *L* (09/17/20 12:47 PM) Temperature [96.8-100.4 DegF] 98.5 DegF (09/17/20 12:47 PM) Mode of Delivery (Oxygen) Room air Room air (09/17/20 3:26 PM) (09/17/20 12:47 PM) Temperature Route Oral (09/17/20 12:47 PM) Dry Weight 90.4 kg (09/17/20 12:47 PM) Weight Obtained Via Patient/family stated (09/17/20 12:47 PM) Social History Social History Type Response Smoking Status Former smoker, quit more jenna n 30 days ago entered on: 09/17/20 Sex
--- OUTSIDE RECORDS SUMMARY | 2022-08-25 11:18 | XMS_ITS | Continuity of Care Document ---
:1965 Author Organization [facility] Address [address] [place] [address]- Care Team Providers Name Role Phone Tremayne Jones MD Primary Care Physician Encounter [facility] [place] Date(s): 11/04/20 - 11/04/[address] [address]- Encounter Diagnosis Constipation (Final) - 11/04/20 Discharge Disposition: A-D/C Home Attending Physician: Urvashi Arellano DO Admitting Physician: Urvashi Arellano DO Referring Physician: Not on Staff, Referring [...] Refills, Maintenance, 09/27/20 15:04:00 EST, REC Powder, [facility], Partial fill upon patient request if the prescription is for a schedule II opioid drug., 17 Gm By Mo... Start Date: 09/27/20 Status: OrderedMiraLax oral powder for reconstitution = 17 Gm, By Mouth, Daily, dissolve in water before taking. Take 1 capful in 8 ounces of water hourlyuntil bowel movement. Then use as needed daily for stool softening., # 527 Gm, 0 Refills, Acute 11/11/20 10:57:00 EDT, 11/04/20 10:56:00 EDT, REC Po... Start Date: 11/04/20 Stop Date: 11/11/20 Status: Orderedphenytoin 200 mg oral capsule, extended [...] Refills, Maintenance, 09/24/20 5:49:00 EST, Chew Tablet, [facility] 5278, Partial fill upon patient [...] Exam Date Time Procedure Performing Provider Status 11/04/20 6:23 AM Abdomen AP Carol Zayas; Maggie ([facility] ed) Notes:(Abdomen AP) Reason For Exam: DistentionRESULT: XR Abdomen AP XR Abdomen AP INDICATION: constipation for a week and a half ,Clinical Question(s); obstruction; COMPARISON: 01/07/2016, 01/06/2016 FINDINGS: Normal bowel gas pattern. No evidence of obstruction. Moderate stool burden in the ascending and transverse colon No evidence of pneumoperitoneum. No acute bone findings. Degenerative changes in the thoracolumbar spine. Stable L1 compression deformity. There are 2 tubular foreign bodies projecting over the left hip region, presumed external to the patient. IMPRESSION: No evidence of bowel obstruction. Moderate stool burden. I have personally reviewed the images and I agree with this report. WSN: [id number] Ordering Physician: Moises Carrera Dictated By: Travon Willett MD Dictated Date/Time: 11/04/20 9:00 am Reviewed By: Dione Rios MD Signed By: Dione Rios MD Signed Date/Time: 11/04/20 9:05 am Transcribed By: NISHA Transcribed Date/Time: 11/04/20 8:37 am Vital Signs Most recent to oldest 1 2 3 [Reference Range]: Oxygen Saturation [94-100 %] 95 % 95 % 98 % (11/04/20 11:15 AM) (11/04/20 11:07 AM) (11/04/20 8 :19 AM) Pulse Rate [55-90 bpm] 87 bpm 87 bpm 82 bpm (11/04/20 11:15 AM) (11/04/20 11:07 AM) (11/04/20 8 :19 AM) Blood Pressure [90-138/55-84 153/92 mm Hg 153/92 mm Hg 159 /94 mm Hg mm Hg] *H* *H* *H* (11/04/20 11:15 AM) (11/04/20 11:07 AM) (11/04/20 8 :19 AM) Respiratory Rate [16-30 16 br/min 16 br/min 18 br/mi n br/min] (11/04/20 11:15 AM) (11/04/20 11:07 AM) (11/04/20 8 :19 AM) Temperature [96.8-100.4 DegF] 98.0 DegF 98.0 DegF 98 .4 DegF (11/04/20 11:15 AM) (11/04/20 11:07 AM) (11/04/20 4 :29 AM) Mode of Delivery (Oxygen) Room air Room air Room a ir (11/04/20 11:15 AM) (11/04/20 11:07 AM) (11/04/20 8 :19 AM) Blood pressure sites Arm, left (11/04/20 4:29 AM) Temperature Route Oral Oral Oral (11/04/20 11:15 AM) (11/04/20 11:07 AM) (11/04/20 4 :29 AM) Social History Social History Type Response Smoking Status Former smoker, quit more jenna n 30 days ago entered on: 09/17/20 Sex Male
--- OUTSIDE RECORDS SUMMARY | 2022-08-25 11:18 | XMS_ITS | Continuity of Care Document ---
:1965 Author Organization [facility] Address [address] [place] [address]- Care Team Providers Name Role Phone Karen BENITEZ, Tremayne Read Primary Care Physician Encounter 05/04/21 - 05/14/21 [facility] [address] [place] [address]- Discharge Disposition: CLIENT NO LONGER REQUIRES SKILLED CARE Allergies, Adverse Reactions, Alerts Substance Reaction Severity Status NKA Active Immunizations Given and Recorded Vaccine Date Status [...]
--- OUTSIDE RECORDS SUMMARY | 2022-08-25 11:18 | XMS_ITS | Continuity of Care Document ---
:1965 Author Organization [facility] Address Unavailable , Care Team Providers Name Role Phone Tremayne Jones MD Primary Care Physician [place] [facility] [place]06[place] 07/[place]21 [facility] Attending Physician: Yasmin Jones Admitting Physician: Yasmin Jones Referring Physician: Yasmin Jones Allergies, Adverse Reactions, Alerts Substance Reaction Severity [...]
--- OUTSIDE RECORDS SUMMARY | 2022-08-25 11:18 | XMS_ITS | Continuity of Care Document ---
:1965 Author Organization [facility] Address [address] [place] [address]- Care Team Providers Name Role Phone Tremayne Jones MD Primary Care Physician Encounter [facility] Date(s): 04/26/21 - 05/03/[address] [address] Encounter Diagnosis Seizure (Final) - 04/26/21 Discharge Disposition: A-D/C Home Attending Physician: Tremayne Bowers MD Admitting Physician: Lucas Mckoy MD Referring Physician: Not on Staff, Referring [...] Exam Date Time Procedure Performing Provider Status 04/27/21 2:31 AM Chest Portable Elva Schulz (Verifie d) Notes:(Chest Portable) Reason For Exam: r/o aspiration;Other:RESULT: Chest Portable Chest Portable AP upright at 2:08 AM INDICATION: r o aspiration; Clinical Question(s): Aspiration / Aspiration COMPARISON: 04/16/2016 FINDINGS: LINES AND TUBES: None. LUNGS AND PLEURA: Low lung volumes with hazy bibasilar airspace opacity. No pleural effusion. No pneumothorax. HEART, MEDIASTINUM AND GABRIEL: Heart is normal in size. Normal mediastinal and hilar contour. BONES AND SOFT TISSUES: No acute abnormality. IMPRESSION: Low lung volumes with hazy opacity at the lung bases, likely due to atelectasis, though aspiration is possible. WSN: [id number] Ordering Physician: Haylie Gordon Dictated By: Dedrick Yin MD Dictated Date/Time: 04/27/21 11:30 a Reviewed By: Dedrick Yin MD Signed By: Dedrick Yin MD Signed Date/Time: 04/27/21 11:30 am Transcribed By: NISHA Transcribed Date/Time: 04/27/21 11:29 am Vital Signs Most recent to oldest 1 2 3 [Reference Range]: Height 172 cm 172 cm 172 cm (05/03/21 3:34 AM) (05/02/21 11:34 PM) (05/02/21 7:18 PM) Weight 99 kg (04/27/21 3:02 AM) Oxygen Saturation [94-100 %] 92 % 98 % 92 % *L* (05/03/21 3:34 AM) *L* (05/03/21 7:00 AM) (05/02/21 11:34 PM) Pulse Rate [55-90 bpm] 90 bpm 89 bpm 86 bpm (05/03/21 7:00 AM) (05/03/21 3:34 AM) (05/02/21 11:3 4 PM) Body Mass Index [18.5-24.99] 33.46 *>HHI* (04/27/21 3:02 AM) Blood Pressure [90-138/55-84 mm 127/78 mm Hg 133/72 mm Hg 115/72 mm Hg Hg] (05/03/21 7:00 AM) (05/03/21 3:34 AM) (05/02/21 11:3 4 PM) Respiratory Rate [16-30 br/min] 18 br/min 18 br/min 18 br/min (05/03/21 7:00 AM) (05/03/21 3:34 AM) (05/02/21 11:3 4 PM) Temperature [96.8-100.4 DegF] 98.4 DegF 97.5 DegF 97 .4 DegF (05/03/21 7:00 AM) (05/03/21 3:34 AM) (05/02/21 11:3 4 PM) Mode of Delivery (Oxygen) Room air Room air Room a ir (05/03/21 7:00 AM) (05/03/21 3:34 AM) (05/02/21 11:3 4 PM) Blood pressure sites Arm, left Arm, left Arm, left (05/03/21 7:00 AM) (05/03/21 3:34 AM) (05/02/21 11:3 4 PM) Temperature Route Oral Oral Oral (05/03/21 7:00 AM) (05/03/21 3:34 AM) (05/02/21 11:3 4 PM) Dry Weight 99 kg (04/27/21 3:02 AM) Weight Obtained Via Bed scale uto (04/27/21 3:02 AM) (04/26/21 6:10 PM) Dry Weight Obtained Via uto (04/26/21 6:10 PM) Social History Social History Type Response Smoking Status Former smoker, quit more jenna n 30 days ago entered on: 04/27/21 Sex Male
--- OUTSIDE RECORDS SUMMARY | 2022-08-25 11:18 | XMS_ITS | Continuity of Care Document ---
:1965 Author Organization [facility] Address [address] [place] [address]- Care Team Providers Name Role Phone Tremayne Jones MD Primary Care Physician [place] [facility] [place]/02[place] - 06/01/[address] [address]- Attending Physician: Not on Staff, Attending MD Admitting Physician: Not on Staff, Admitting MD Referring Physician: Not on Staff, Referring [...]
--- OUTSIDE RECORDS SUMMARY | 2022-08-25 11:18 | XMS_ITS | Continuity of Care Document ---
:1965 Author Organization [facility] Address [address] [place] [phone]- Care Team Providers Name Role Phone Tremayne Jones MD Primary Care Physician Encounter [facility] [place] Date(s): 07/04/22 - 07/04/[address] [address]- Encounter Diagnosis Seizure (Final) - 07/04/22 Discharge Disposition: A-D/C Home Attending Physician: Anuradha Pimentel MD Admitting Physician: Anuradha Pimentel MD Referring Physician: Not on Staff, Referring [...] 06/25/22 12:32:00 EDT, Route to Pharmacy Electronically, [id number],Partial fill upon patient request if the prescrip... Start Date: 06/25/22 Stop Date: 06/28/22 Status: OrderedDilantin 100 mg oral capsule, extended release 3 capsule = 300 mg, By Mouth, 2 times a day, # 180 capsule, 0 Refills, Maintenance, 05/06/22 16:19:00 EDT, CR Capsule, [id number], Partial fill upon patient request if the prescription is for a schedule II opioid drug., 172, cm, 05/03/21 3:... Start Date: 05/06/22 Stop Date: 06/05/22 Status: OrderedKlonoPIN 0.5 mg oral tablet 1 [...] Refills, Soft Stop, 06/25/22 12:32:00 EDT, Suspension, [id number], Partial fill upon patient [...] oldest 1 2 3 [Reference Range]: Height 173 cm 173 cm 173 cm (07/04/22 11:00 AM) (07/04/22 8:01 AM) (07/04/22 7:56 AM) Weight 81.8 kg 81.8 kg 81.8 kg (07/04/22 11:00 AM) (07/04/22 8:01 AM) (07/04/22 7:56 AM) Oxygen Saturation [94-100 94 % 93 % 97 % %] (07/04/22 11:00 AM) *L* (07/04/22 7: 54 AM) (07/04/22 8:01 AM) Pulse Rate [55-90 bpm] 98 bpm 111 bpm 99 bpm *H* *H* *H* (07/04/22 11:00 AM) (07/04/22 8:01 AM) (07/04/22 7:54 AM) Body Mass Index [18.5-24.99 27.33 kg/m2 27.33 kg/m2 27.3 3 kg/m2 kg/m2] *H* *H* *H* (07/04/22 11:00 AM) (07/04/22 8:01 AM) (07/04/22 7:54 AM) Blood Pressure 157/90 mm Hg 128/94 mm Hg 150/96 mm Hg [90-138/55-84 mm Hg] *H* (07/04/22 8:01 AM) *H* (07/04/22 11:00 AM) (07/04/22 7: 54 AM) Respiratory Rate [16-30 16 br/min 16 br/min 18 br/mi n br/min] (07/04/22 12:04 PM) (07/04/22 11:00 AM) ( 9:30 AM) Temperature [96.8-100.4 98.3 DegF 99.4 DegF 98.5 Deg F DegF] (07/04/22 11:00 AM) (07/04/22 8:01 AM) (07/04/22 7:54 AM) Mode of Delivery (Oxygen) Room air Room air Room a ir (07/04/22 12:04 PM) (07/04/22 11:00 AM) ( 9:30 AM) Blood pressure sites Arm, left Arm, right (07/04/22 11:00 AM) (07/04/22 8:01 AM) Temperature Route Oral Oral Oral (07/04/22 11:00 AM) (07/04/22 8:01 AM) (07/04/22 7:54 AM) Dry Weight 81.8 kg 81.8 kg 81.8 kg (07/04/22 11:00 AM) (07/04/22 8:01 AM) (07/04/22 7:56 AM) Social History Social History Type Response Smoking Status Former smoker, quit more jenna n 30 days ago entered on: 04/27/21 Sex Patient Care team information Care Team PersonnelName: Karen BENITEZ, Tremayne Read Position: [facility] Neurology MD Member Role: PCP Address: Address: [address] [place] [address] Drive [address] [place] [id number]- [place] Name: Sonia RN, Tiny Position: [facility] AMB Nurse Member Role: Primary Care Nurse Name: Wendy Whitt RN Position: [facility] RN Member Role: Primary Care Nurse Name: Dylan Carranza RN Position: [facility] ED RN W/OE and Tasks Member Role: Primary Care Nurse Name: Katherine Hudson MD Position: [facility] Resident Member Role: ED Resident Address: Address: [address] [place] [address] [place] [address]- Name: Roselyn Cordon Position: [facility] ED TA [facility] Member Role: Supervisor Air Conditioning Installer Name: Anuradha Pimentel MD Position: [facility] ED Medicine MD Member Role: Admitting Physician Address: Address: [address] [place] [address]- Name: Ashely Lara Position: [facility] ED [facility] Member Role: Supervisor Air Conditioning Installer Name: Isidro Salazar RN Position: [facility] ED RN W/OE and Tasks Member Role: Patient Care Provider Care Team Related PersonsName: SLADE FELICIANO Address: home [address] [place] [id number] Name: SHARIF FELICIANO Address: [place] [address]
--- OUTSIDE RECORDS SUMMARY | 2022-08-25 11:18 | XMS_ITS | Continuity of Care Document ---
:1965 Author Organization [facility] Address [address] [place] [id number]- Care Team Providers Name Role Phone Tremayne Jones MD Primary Care Physician Encounter [facility] [place] Date(s): 03/31/21 - 03/31/[address] [address]- Discharge Disposition: A-D/C Home Attending Physician: Cy Walker DO Admitting Physician: Cy Walker DO Referring Physician: Not on Staff, Referring [...] Stop, 12/13/20 11:38:00 EDT, Enema, [id number], Partial fill upon patient request if the prescription is for a schedule II opioid drug., 1 each Rectally Once, 172.72, cm, 09/17/20 12:47:00 E... Start Date: 12/13/20 Status: OrderedFleet Enema 19 gm-7 gm rectal enema 1 each, Rectally, Once, # 118 mL, 0 Refills, Soft Stop, 12/13/20 14:22:00 EDT, Enema, [id number], Partial fill upon patient request if the prescription is for a schedule II opioid drug., 1 each Rectally Once, 172.72, cm, 09/17/20 12:4... Start Date: 12/13/20 Status: OrderedGolytely - oral powder for reconstitution 240 mL, By Mouth, Daily, Take until first bowel movement then discontinue, # 480 mL, 0 Refills, Maintenance, 02/06/21 16:24:00 EDT, REC Powder, Partial fill upon patient request if the prescription is for a schedule II opioid drug. Start Date: 02/06/21 Status: OrderedGolytely - oral powder for reconstitution [...] Refills, Maintenance, 09/27/20 15:04:00 EST, REC Powder, [facility], Partial fill upon patient request [...] Maintenance, 09/24/20 5:49:00 EST, Chew Tablet, [facility], Partial fill upon patient request if the prescription is for a schedule II opioid drug., 172.72... Start Date: 09/24/20 Status: OrderedTopamax 100 mg oral tablet See Instructions, 3 tablet By Mouth in the morning, 2 tablets at bedtime., # 60 Doses, 0 Refills, Maintenance, 04/19/16 15:00:43, Tablet Start Date: 04/19/16 Status: Orderedzonisamide 100 mg oral capsule 1 capsule = 100 mg, By Mouth, Daily, start with 1 capsule once daily for one week, then increase to 2 capsules once daily, # 7 capsule, 0 Refills, Maintenance, 02/11/21 14:43:00 EDT, Capsule, [id number], Partial fill upon patient requ... Start Date: 02/11/21 Stop Date: 02/18/21 Status: Orderedzonisamide 100 mg oral capsule 2 capsule = 200 mg, By Mouth, Daily, start with 1 capsule once daily (seperate prescription). After one week, increase to 2 capsules once daily, # 60 capsule, 0 Refills, Maintenance, 02/11/21 14:45:00 EDT, Capsule, [facility] #[id number], Partial... Start Date: 02/11/21 Status: Ordered Problem List Condition Effective Dates Status Health Status Informant Traumatic brain injury(Confirmed) Active Vital Signs Most recent to oldest [Reference Range]: 1 Oxygen Saturation [94-100 %] 94 % (03/31/21 2:02 PM) Pulse Rate [55-90 bpm] 90 bpm (03/31/21 2:02 PM) Blood Pressure [90-138/55-84 mm Hg] 171/88 mm Hg *H* (03/31/21 2:02 PM) Respiratory Rate [16-30 br/min] 16 br/min (03/31/21 2:02 PM) Temperature [96.8-100.4 DegF] 98.3 DegF (03/31/21 2:02 PM) Mode of Delivery (Oxygen) Room air (03/31/21 2:02 PM) Blood pressure sites Arm, left (03/31/21 2:02 PM) Temperature Route Oral (03/31/21 2:02 PM) Social History Social History Type Response Smoking Status Former smoker, quit more jenna n 30 days ago entered on: 09/17/20 Sex Male
--- OUTSIDE RECORDS SUMMARY | 2022-08-25 11:18 | XMS_ITS | Continuity of Care Document ---
:1965 Author Organization [facility] Address [address] [place] [phone] Care Team Providers Name Role Phone Tremayne Jones MD Primary Care Physician Encounter [facility] [place] Date(s): 01/02/22 - 01/02/[address] [address]- Encounter Diagnosis Seizure-like activity (Final) - 01/02/22 Discharge Disposition: A-D/C Home Attending Physician: Ranjith Gonzalez MD Admitting Physician: Ranjith Gonzalez MD Referring Physician: Not on Staff, Referring [...] Exam Date Time Procedure Performing Provider Status 01/02/22 12:44 PM Chest 2 Views Frontal and Lat Meka Riley; Maggie (Verified) Notes:(Chest 2 Views Frontal and Lat) Reason For Exam: Shortness of Breath;Other:RESULT: Chest 2 Views Frontal and Lat Chest 2 Views Frontal and Lat Hx of Present Illness: Pt states that he was sitting in his wheelchair and had a seizure but was able to get himself back up after that. pt denies any pain. disoriented to baseline from a previous TBI.pt has as hx of seizures.; Reason: Other:; Shortness of Breath; Clinical Question(s): Pneumonia COMPARISON: 04/27/2021. FINDINGS: LINES AND TUBES: None. LUNGS AND PLEURA: Low lung volumes. Minimal haziness in both lung bases again noted probably due to atelectasis. Normal pulmonary vascularity. A small left pleural effusion cannot be excluded. No pneumothorax. HEART, MEDIASTINUM AND GABRIEL: Heart is normal in size. Normal upper mediastinal and hilar contour. BONES AND SOFT TISSUES: No acute abnormality. IMPRESSION: No definite acute cardiopulmonary disease is seen. WSN: [id number] Ordering Physician: Femi Ramachandran Dictated By: Chance Hunt MD, V Dictated Date/Time: 01/02/22 12:47 p Reviewed By: Chance Hunt MD, V Signed By: Chance Hunt MD, V Signed Date/Time: 01/02/22 12:47 pm Transcribed By: NISHA Transcribed Date/Time: 01/02/22 12:46 pm Vital Signs Most recent to oldest 1 2 3 [Reference Range]: Oxygen Saturation [94-100 %] 95 % 99 % 96 % (01/02/22 3:12 PM) (01/02/22 11:59 AM) (01/02/22 11 :33 AM) Pulse Rate [55-90 bpm] 94 bpm 88 bpm 86 bpm *H* (01/02/22 11:59 AM) (01/02/22 11:3 3 AM) (01/02/22 3:12 PM) Blood Pressure [90-138/55-84 166/95 mm Hg 164/97 mm Hg 159 /88 mm Hg mm Hg] *H* *H* *H* (01/02/22 3:12 PM) (01/02/22 11:59 AM) (01/02/22 11 :33 AM) Respiratory Rate [16-30 23 br/min 20 br/min 20 br/mi n br/min] (01/02/22 3:12 PM) (01/02/22 11:59 AM) (01/02/22 11 :33 AM) Temperature [96.8-100.4 98.3 DegF DegF] (01/02/22 11:33 AM) Mode of Delivery (Oxygen) Room air Room air Room a ir (01/02/22 3:12 PM) (01/02/22 11:59 AM) (01/02/22 11 :33 AM) Blood pressure sites Arm, left Arm, left Arm, left (01/02/22 3:12 PM) (01/02/22 11:59 AM) (01/02/22 11 :33 AM) Temperature Route Oral (01/02/22 11:33 AM) Social History Social History Type Response Smoking Status Former smoker, quit more jenna n 30 days ago entered on: 04/27/21 Sex Male
--- OUTSIDE RECORDS SUMMARY | 2022-08-25 11:18 | XMS_ITS | Continuity of Care Document ---
:1965 Author Organization [facility] Address [address] [place] [id number]- Care Team Providers Name Role Phone Tremayne Jones MD Primary Care Physician Encounter [facility] [place] Date(s): 06/17/22 - 06/17/[address] [address]- Encounter Diagnosis Seizure (Final) - 06/17/22 Facial laceration (Final) - 06/17/22 Fall (Final) - 06/17/22 Discharge Disposition: A-D/C Home Attending Physician: Maximilian Ward MD Admitting Physician: Maximilian Ward MD Referring Physician: Not on Staff, Referring [...] Refills, Maintenance, 05/06/22 16:19:00 EDT, CR Capsule, [facility], Partial fill upon patient request [...] injury Vital Signs Most recent to oldest [Reference Range]: 1 Oxygen Saturation [94-100 %] 94 % (06/17/22 9:21 AM) Pulse Rate [55-90 bpm] 103 bpm *H* (06/17/22 9:21 AM) Blood Pressure [90-138/55-84 mm Hg] 175/94 mm Hg *H* (06/17/22 9:21 AM) Respiratory Rate [16-30 br/min] 20 br/min (06/17/22 9:21 AM) Temperature [96.8-100.4 DegF] 97.1 DegF (06/17/22 9:21 AM) Mode of Delivery (Oxygen) Room air (06/17/22 9:21 AM) Blood pressure sites Arm, left (06/17/22 9:21 AM) Temperature Route Oral (06/17/22 9:21 AM) Social History Social History Type Response Smoking Status Former smoker, quit more jenna n 30 days ago entered on: 04/27/21 Sex Male Patient Care team information PersonnelName: Tremayne Jones MD Address: Address: [address] [place] [address] [address] [place] [address]
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
--- OUTSIDE RECORDS SUMMARY | 2022-08-25 11:18 | XMS_ITS | Continuity of Care Document ---
:1965 Author Organization [facility] Address [address] [place] [address]- Care Team Providers Name Role Phone Tremayne Jones MD Primary Care Physician Encounter [facility] [place] Date(s): 05/15/22 - 05/15/[address] [address]- Discharge Disposition: A-D/C Walkout Attending Physician: Not on Staff, Attending MD [...] Refills, Maintenance, 05/06/22 16:19:00 EDT, CR Capsule, [facility], Partial fill upon patient request [...] 2 Oxygen Saturation [94-100 %] 98 % 98 % (05/15/22 5:56 AM) (05/15/22 1:37 AM) Pulse Rate [55-90 bpm] 82 bpm 98 bpm (05/15/22 5:56 AM) *H* (05/15/22 1:37 AM) Blood Pressure [90-138/55-84 mm Hg] 156/83 mm Hg 136/ 88 mm Hg *H* (05/15/22 1:37 AM) (05/15/22 5:56 AM) Respiratory Rate [16-30 br/min] 19 br/min (05/15/22 1:37 AM) Temperature [96.8-100.4 DegF] 98.1 DegF 98.3 DegF (05/15/22 5:56 AM) (05/15/22 1:37 AM) Mode of Delivery (Oxygen) Room air (05/15/22 1:37 AM) Blood pressure sites Arm, left Arm, right (05/15/22 5:56 AM) (05/15/22 1:37 AM) Temperature Route Oral Oral (05/15/22 5:56 AM) (05/15/22 1:37 AM) Social History Social History Type Response Smoking Status Former smoker, quit more jenna n 30 days ago entered on: 04/27/21 Sex Male Care Team PersonnelName: Tremayne Jones MD Address: [address] [place] [address] Drive [address] [place] [address]- [place]
--- OUTSIDE RECORDS SUMMARY | 2022-08-25 11:18 | XMS_ITS | Continuity of Care Document ---
:1965 Author Organization [facility] Address [address] [place] [id number]- Care Team Providers Name Role Phone Tremayne Jones MD Primary Care Physician Encounter [facility] Date(s): 02/06/21 - 02/06/[address] [address]- Encounter Diagnosis Abdominal pain (Final) - 02/06/21 Discharge Disposition: A-D/C Home Attending Physician: Urvashi [...] Refills, Soft Stop, 12/13/20 11:38:00 EDT, Enema, [facility], Partial fill upon patient request if the prescription is for a schedule II opioid drug., 1 each Rectally Once, 172.72, cm, 09/17/20 12:47:00 E... Start Date: 12/13/20 Status: OrderedFleet Enema 19 gm-7 gm rectal enema 1 each, Rectally, Once, # 118 mL, 0 Refills, Soft Stop, 12/13/20 14:22:00 EDT, Enema, [id number], Partial fill upon patient request if the [...] Refills, Maintenance, 09/24/20 5:49:00 EST, REC Powder, [facility], Partial fill upon patient request if [...] Refills, Maintenance, 09/27/20 15:04:00 EST, REC Powder, [facility], Partial fill upon patient [...] Refills, Maintenance, 09/24/20 5:49:00 EST, Chew Tablet, [id number], Partial fill upon patient request if the [...] Saturation [94-100 %] 99 % 99 % 99 % (02/06/21 4:00 PM) (02/06/21 3:17 PM) (02/06/21 8:1 6 AM) Pulse Rate [55-90 bpm] 79 bpm 75 bpm 82 bpm (02/06/21 4:00 PM) (02/06/21 3:17 PM) (02/06/21 8:1 6 AM) Blood Pressure [90-138/55-84 mm 150/83 mm Hg 136/77 mm Hg 157/99 mm Hg Hg] *H* (02/06/21 3:17 PM) *H* (02/06/21 4:00 PM) (02/06/21 8:16 AM) Respiratory Rate [16-30 br/min] 16 br/min 18 br/min 18 br/min (02/06/21 4:00 PM) (02/06/21 3:17 PM) (02/06/21 8:1 6 AM) Temperature [96.8-100.4 DegF] 98.3 DegF 98.2 DegF 97 .7 DegF (02/06/21 4:00 PM) (02/06/21 3:17 PM) (02/06/21 8:1 6 AM) Mode of Delivery (Oxygen) Room air Room air Room a ir (02/06/21 4:00 PM) (02/06/21 3:17 PM) (02/06/21 8:1 6 AM) Blood pressure sites Arm, left Arm, left Arm, left (02/06/21 4:00 PM) (02/06/21 3:17 PM) (02/06/21 8:1 6 AM) Temperature Route Oral Oral Oral (02/06/21 4:00 PM) (02/06/21 3:17 PM) (02/06/21 8:1 6 AM) Social History Social History Type Response Smoking Status Former smoker, quit more jenna n 30 days ago entered on: 09/17/20 Sex Male
--- OUTSIDE RECORDS SUMMARY | 2022-08-25 11:18 | XMS_ITS | Continuity of Care Document ---
:1965 Author Organization [facility] Address [address] [place] [address]- Care Team Providers Name Role Phone Not on Staff, PCP Primary Care Physician Unavailable Encounter [facility] Date(s): 06/25/22 - 06/25/[address] [address]- Encounter Diagnosis Constipation (Final) - 06/25/22 Discharge Disposition: A-D/C Home Attending Physician: Carmelo [...] Refills, Maintenance, Capsule Start Date: 10/03/11 Status: OrderedColace sodium 100 mg oral capsule 100 mg, 1, capsule, By Mouth, 2 times a day, PRN, # 20 capsule, Refills 0, Tot. Refills 0, Maintenance, for constipation, 06/25/22 12:32:00 EDT, Route to Pharmacy Electronically, [id number],Partial fill upon patient request if the prescrip... Start Date: 06/25/22 Stop Date: 06/28/22 Status: OrderedDilantin 100 mg oral capsule, extended release 3 capsule = 300 mg, By Mouth, 2 times a day, # 180 capsule, 0 Refills, Maintenance, 05/06/22 16:19:00 EDT, CR Capsule, [facility], Partial fill upon patient request if the prescription is for a schedule II opioid drug., 172, cm, 05/03/21 3:... Start Date: 05/06/22 Stop Date: 06/05/22 Status: OrderedMilk of Magnesia 8% oral suspension 30 mL = 2.4 Gm, By Mouth, Once, PRN for constipation, # 30 mL, 0 Refills, Soft Stop, 06/25/22 12:32:00 EDT, Suspension, [facility], Partial fill upon patient request if the prescription is for a schedule II opioid drug., 168, cm, 06/20/22 1... Start Date: 06/25/22 Status: OrderedMiraLax oral powder for reconstitution = 17 Gm, By Mouth, Daily, for 7 days, dissolve in water before taking, # 255 Gm, 0 Refills, Acute 07/02/22 12:32:00 EST, 06/25/22 12:32:00 EDT, REC Powder, [facility], Partial fill upon patient request if the prescription is for a schedule... Start Date: 06/25/22 Stop Date: 07/02/22 Status: OrderedMiraLax Powder 1 pack/packet = 17 [...] Date: 04/19/16 Stop Date: 05/19/16 Status: Orderedsenna - oral tablet 2 tablet, By Mouth, Daily at bedtime, PRN for constipation, for 3 days, # 20 tablet, 0 Refills, Acute 06/28/22 12:32:00 EDT, 06/25/22 12:32:00 EDT, Malinda, [facility], Partial fill upon patient request if the prescription is for a schedule... Start Date: 06/25/22 Stop Date: 06/28/22 Status: Ordered Problem List Condition Confirmation Course Effective Dates Status Health Stat us Informant Traumatic brain Confirmed Active injury Vital Signs Most recent to oldest 1 2 3 [Reference Range]: Oxygen Saturation [94-100 %] 97 % 95 % 97 % (06/25/22 12:02 PM) (06/25/22 7:18 AM) (06/25/22 2: 50 AM) Pulse Rate [55-90 bpm] 88 bpm 99 bpm 104 bpm (06/25/22 12:02 PM) *H* *H* (06/25/22 7:18 AM) (06/25/22 2:50 AM) Blood Pressure [90-138/55-84 158/81 mm Hg 150/99 mm Hg 166 /97 mm Hg mm Hg] *H* *H* *H* (06/25/22 12:02 PM) (06/25/22 7:18 AM) (06/25/22 2: 50 AM) Respiratory Rate [16-30 19 br/min 18 br/min br/min] (06/25/22 12:02 PM) (06/25/22 2:50 AM) Temperature [96.8-100.4 DegF] 98.0 DegF 98 DegF 99 .0 DegF (06/25/22 12:02 PM) (06/25/22 7:18 AM) (06/25/22 2: 50 AM) Mode of Delivery (Oxygen) Room air Room air Room a ir (06/25/22 12:02 PM) (06/25/22 7:18 AM) (06/25/22 2: 50 AM) Blood pressure sites Arm, right Arm, right (06/25/22 12:02 PM) (06/25/22 7:18 AM) Temperature Route Oral Oral Oral (06/25/22 12:02 PM) (06/25/22 7:18 AM) (06/25/22 2: 50 AM) Social History Social History Type Response Smoking Status Former smoker, quit more jenna n 30 days ago entered on: 04/27/21 Sex Patient Care team information PersonnelName: Not on Staff, PCP
--- OUTSIDE RECORDS SUMMARY | 2022-08-25 11:18 | XMS_ITS | Continuity of Care Document ---
:1965 Author Organization [facility] Address [address] [place] [phone]- Care Team Providers Name Role Phone Tremayne Jones MD Primary Care Physician [place] [facility] [place] - 02/11/[address] [address]- Encounter Diagnosis Seizure (Final) - 02/11/21 Discharge Disposition: A-D/C Home Attending Physician: Orlando Santa MD Admitting Physician: Orlando Santa MD Referring Physician: Not on Staff, Referring [...] Stop, 12/13/20 11:38:00 EDT, Enema, [facility], Partial fill upon patient request if the prescription is for a schedule II opioid drug., 1 each Rectally Once, 172.72, cm, 09/17/20 12:47:00 E... Start Date: 12/13/20 Status: OrderedFleet Enema 19 gm-7 gm rectal enema 1 each, Rectally, Once, # 118 mL, 0 Refills, Soft Stop, 12/13/20 14:22:00 EDT, Enema, [facility][id number], Partial fill upon patient request if the [...] Refills, Maintenance, 09/24/20 5:49:00 EST, REC Powder, [facility], Partial fill upon patient request [...] Refills, Maintenance, 09/27/20 15:04:00 EST, REC Powder, [facility] 5278, Partial fill upon patient [...] Refills, Maintenance, 09/24/20 5:49:00 EST, Chew Tablet, [facility], Partial fill upon patient [...] 0 Refills, Maintenance, 02/11/21 14:43:00 EDT, Capsule, [facility] #[id number], Partial fill upon patient requ... Start Date: 02/11/21 Stop Date: 02/18/21 Status: Orderedzonisamide 100 mg oral capsule 2 capsule = 200 mg, By Mouth, Daily, start with 1 capsule once daily (seperate prescription). After one week, increase to 2 capsules once daily, # 60 capsule, 0 Refills, Maintenance, 02/11/21 14:45:00 EDT, Capsule, [facility] #[id number], Partial... Start Date: 02/11/21 Status: Ordered Problem List Condition Effective Dates Status Health Status Informant Traumatic brain injury(Confirmed) Active Vital Signs Most recent to oldest 1 2 3 [Reference Range]: Height 180 cm (02/11/21 10:13 AM) Weight 93 kg (02/11/21 10:13 AM) Oxygen Saturation [94-100 %] 96 % 94 % 98 % (02/11/21 3:41 PM) (02/11/21 1:29 PM) (02/11/21 10: 13 AM) Pulse Rate [55-90 bpm] 85 bpm 89 bpm 94 bpm (02/11/21 3:41 PM) (02/11/21 1:29 PM) *H* (02/11/21 10:13 A M) Blood Pressure [90-138/55-84 140/85 mm Hg 145/78 mm Hg 156 /92 mm Hg mm Hg] *H* *H* *H* (02/11/21 3:41 PM) (02/11/21 1:29 PM) (02/11/21 10: 13 AM) Respiratory Rate [16-30 18 br/min 18 br/min 16 br/mi n br/min] (02/11/21 3:41 PM) (02/11/21 1:29 PM) (02/11/21 10: 13 AM) Temperature [96.8-100.4 DegF] 98.8 DegF 98.8 DegF 98 .8 DegF (02/11/21 3:41 PM) (02/11/21 1:29 PM) (02/11/21 10: 13 AM) Mode of Delivery (Oxygen) Room air Room air Room a ir (02/11/21 3:41 PM) (02/11/21 1:29 PM) (02/11/21 10: 13 AM) Blood pressure sites Arm, left Arm, left Arm, left (02/11/21 3:41 PM) (02/11/21 1:29 PM) (02/11/21 10: 13 AM) Temperature Route Oral Oral Oral (02/11/21 3:41 PM) (02/11/21 1:29 PM) (02/11/21 10: 13 AM) Dry Weight 93 kg (02/11/21 10:13 AM) Social History Social History Type Response Smoking Status Former smoker, quit more jenna n 30 days ago entered on: 09/17/20 Sex Male
--- OUTSIDE RECORDS SUMMARY | 2022-08-25 11:18 | XMS_ITS | Continuity of Care Document ---
:1965 Author Organization [facility] Address Unavailable , Care Team Providers Name Role Phone Tremayne Jones MD Primary Care Physician [place] [facility] [place] 05/25/21 [facility] Attending Physician: Gloria Molina Admitting Physician: Gloria Molina Referring Physician: Katie Miller Allergies, Adverse Reactions, Alerts Substance Reaction Severity [...]
--- OUTSIDE RECORDS SUMMARY | 2022-08-25 11:18 | XMS_ITS | Continuity of Care Document ---
:1965 Author Organization [facility] Address [address] [place] [phone]- Care Team Providers Name Role Phone Tremayne Jones MD Primary Care Physician [place] [facility] [place] - 12/13/[address] [address]- Encounter Diagnosis Constipation (Final) - 12/13/20 Discharge Disposition: A-D/C Home Attending Physician: Haider Mahmood DO Admitting Physician: Haider Mahmood DO Referring Physician: Not on Staff, Referring [...] Stop, 12/13/20 11:38:00 EDT, Enema, [facility], Partial fill upon patient request if the prescription is for a schedule II opioid drug., 1 each Rectally Once, 172.72, cm, 09/17/20 12:47:00 E... Start Date: 12/13/20 Status: OrderedFleet Enema 19 gm-7 gm rectal enema 1 each, Rectally, Once, # 118 mL, 0 Refills, Soft Stop, 12/13/20 14:22:00 EDT, Enema, [facility] #[id number], Partial fill upon patient request if the prescription is for a schedule II opioid drug., 1 each Rectally Once, 172.72, cm, 09/17/20 12:4... Start Date: 12/13/20 Status: OrderedGolytely - oral powder for reconstitution 240 mL, By Mouth, Daily, # 480 mL, 0 Refills, Maintenance, 09/24/20 5:49:00 EST, REC Powder, [facility], Partial fill upon patient request if [...] By Mouth, Daily, dissolve in water before taking Please take 1 capful in the morning, 1 capful in the evening until you are having consistent loose stools and then back down to once a day., # 527 Gm, 0 Refills, Acute 12/20/20 17:00:00 EDT,... Start Date: 12/13/20 Stop Date: 12/20/20 Status: OrderedMiraLax oral powder for reconstitution = 17 Gm, By Mouth, Daily, dissolve in water before taking Please take 1 scoop full in the morning aswell as evening until you are having consistent soft bowel movements then decrease to 1 scoop per day, # 527 Gm, 0 Refills, Acute 12/20/20 18:00:00 E... Start Date: 12/13/20 Stop Date: 12/20/20 Status: OrderedMiraLax oral powder for reconstitution = 17 Gm, By Mouth, Daily, dissolve in water before taking, # 527 Gm, 0 Refills, Maintenance, 09/27/20 15:04:00 EST, REC Powder, [facility], Partial fill upon patient [...] Maintenance, 09/24/20 5:49:00 EST, Chew Tablet, [facility], Partial fill upon patient request [...] Exam Date Time Procedure Performing Provider Status 12/13/20 8:06 AM Abdomen AP Meka Riley; Maggie (Verified ) Notes:(Abdomen AP) Reason For Exam: DistentionRESULT: XR Abdomen AP XR Abdomen AP INDICATION/CLINICAL QUESTION: Hx of Present Illness: PT c o constipation for 3 weeks. Here 2 months ago for the same. Was given some pills to go. They helped, but he does't know whatd they are; Reason:Distention; Clinical Question(s): Obstruction; Special Instructions: Flat. Obstruction COMPARISON: Abdominal radiograph, 11/04/2020. FINDINGS: Normal bowel gas pattern. No evidence of obstruction. Moderate stool burden in the ascending and transverse colon, with normal caliber descending colon. Intermediate density is seen in the mid pelvis likely reflecting stool within the rectum. No evidence of pneumoperitoneum. No organomegaly, masses or calcifications. No acute bone findings. Degenerative changes of the spine, greatest in the lower lumbar spine at L4-5 and L5-S1, are similar to prior. There is similar mild compression deformity of L1. Small phleboliths are incidentally noted in the pelvis. IMPRESSION: No bowel obstruction. Moderate stool in the ascending colon and rectum. WSN: [id number] Ordering Physician: Marcio Hansen V Dictated By: Ira Donohue MD Dictated Date/Time: 12/13/20 8:54 am Reviewed By: Ira Donohue MD Signed By: Ira Donohue MD Signed Date/Time: 12/13/20 8:54 am Transcribed By: CSPraneeth Transcribed Date/Time: 12/13/20 8:52 am Vital Signs Most recent to oldest 1 2 3 [Reference Range]: Oxygen Saturation [94-100 %] 98 % 96 % 96 % (12/13/20 1:59 PM) (12/13/20 9:31 AM) (12/13/20 5:3 9 AM) Pulse Rate [55-90 bpm] 83 bpm 86 bpm 82 bpm (12/13/20 1:59 PM) (12/13/20 9:31 AM) (12/13/20 5:3 9 AM) Blood Pressure [90-138/55-84 mm 153/90 mm Hg 173/95 mm Hg 143/87 mm Hg Hg] *H* *H* *H* (12/13/20 1:59 PM) (12/13/20 9:31 AM) (12/13/20 5:3 9 AM) Respiratory Rate [16-30 br/min] 18 br/min 16 br/min 16 br/min (12/13/20 1:59 PM) (12/13/20 9:31 AM) (12/13/20 5:3 9 AM) Temperature [96.8-100.4 DegF] 98.3 DegF 98.6 DegF 98 .3 DegF (12/13/20 1:59 PM) (12/13/20 5:39 AM) (12/13/20 3:0 0 AM) Mode of Delivery (Oxygen) Room air Room air Room a ir (12/13/20 1:59 PM) (12/13/20 5:39 AM) (12/13/20 3:0 0 AM) Blood pressure sites Arm, left Arm, left Arm, left (12/13/20 9:31 AM) (12/13/20 5:39 AM) (12/13/20 3:0 0 AM) Temperature Route Oral Oral Oral (12/13/20 1:59 PM) (12/13/20 5:39 AM) (12/13/20 3:0 0 AM) Social History Social History Type Response Smoking Status Former smoker, quit more jenna n 30 days ago entered on: 09/17/20 Sex Male
--- OUTSIDE RECORDS SUMMARY | 2022-08-25 11:18 | XMS_ITS | Continuity of Care Document ---
:1965 Author Organization [facility] Address [address] [place] [id number]- Care Team Providers Name Role Phone Tremayne Jones MD Primary Care Physician [place]counter [facility] [place] Date(s[place] 03/06/21 - 03/07/[address] [address]- Encounter Diagnosis Seizure, convulsion (Final) - 03/07/21 Discharge Disposition: A-D/C Home Attending Physician: Cy [...] Refills, Soft Stop, 12/13/20 11:38:00 EDT, Enema, [facility], Partial fill upon patient request if the prescription is for a schedule II opioid drug., 1 each Rectally Once, 172.72, cm, 09/17/20 12:47:00 E... Start Date: 12/13/20 Status: OrderedFleet Enema 19 gm-7 gm rectal enema 1 each, Rectally, Once, # 118 mL, 0 Refills, Soft Stop, 12/13/20 14:22:00 EDT, Enema, [facility] #[id number], Partial fill upon patient request if the [...] Refills, Maintenance, 09/24/20 5:49:00 EST, REC Powder, [facility]278, Partial fill upon patient [...] Refills, Maintenance, 09/27/20 15:04:00 EST, REC Powder, [facility], Partial fill upon patient [...] Refills, Maintenance, 09/24/20 5:49:00 EST, Chew Tablet, [facility], Partial fill upon patient [...] 0 Refills, Maintenance, 02/11/21 14:43:00 EDT, Capsule, [facility] #[id number], Partial fill upon patient requ... Start Date: 02/11/21 Stop Date: 02/18/21 Status: Orderedzonisamide 100 mg oral capsule 2 capsule = 200 mg, By Mouth, Daily, start with 1 capsule once daily (seperate prescription). After one week, increase to 2 capsules once daily, # 60 capsule, 0 Refills, Maintenance, 02/11/21 14:45:00 EDT, Capsule, [facility] #[id number], Partial... Start Date: 02/11/21 Status: Ordered Problem List Condition Effective Dates Status Health Status Informant Traumatic brain injury(Confirmed) Active Vital Signs Most recent to oldest 1 2 3 [Reference Range]: Oxygen Saturation [94-100 %] 96 % 96 % 98 % (03/07/21 12:40 PM) (03/07/21 9:48 AM) (03/07/21 7: 32 AM) Pulse Rate [55-90 bpm] 89 bpm 102 bpm 85 bpm (03/07/21 12:40 PM) *H* (03/07/21 7:32 AM) (03/07/21 9:48 AM) Blood Pressure [90-138/55-84 140/90 mm Hg 127/51 mm Hg 148 /89 mm Hg mm Hg] *H* (03/07/21 9:48 AM) *H* (03/07/21 12:40 PM) (03/07/21 7:32 AM) Respiratory Rate [16-30 20 br/min 20 br/min 19 br/mi n br/min] (03/07/21 12:40 PM) (03/07/21 9:48 AM) (03/07/21 7: 32 AM) Temperature [96.8-100.4 DegF] 98.2 DegF 98.2 DegF 98 .4 DegF (03/07/21 12:40 PM) (03/07/21 7:32 AM) (03/06/21 5: 29 PM) Mode of Delivery (Oxygen) Room air Room air Room a ir (03/07/21 12:40 PM) (03/07/21 9:48 AM) (03/07/21 7: 32 AM) Blood pressure sites Arm, right Arm, right Arm, right (03/07/21 12:40 PM) (03/07/21 9:48 AM) (03/07/21 7: 32 AM) Temperature Route Oral Oral Oral (03/07/21 12:40 PM) (03/07/21 7:32 AM) (03/06/21 5: 29 PM) Social History Social History Type Response Smoking Status Former smoker, quit more jenna n 30 days ago entered on: 09/17/20 Sex Male
--- OUTSIDE RECORDS SUMMARY | 2022-08-25 11:18 | XMS_ITS | Continuity of Care Document ---
:1965 Author Organization [facility] Address [address] [place] [address]- Care Team Providers Name Role Phone Tremayne Jones MD Primary Care Physician [place] [facility] [place] 09/26/20 - 09/26/[address] [address]- Discharge Disposition: A-D/C Home Attending Physician: Urvashi [...] Refills, Maintenance, 09/24/20 5:49:00 EST, REC Powder, [facility], Partial fill upon patient request if [...] Maintenance, 09/24/20 5:49:00 EST, Chew Tablet, [facility], Partial fill upon patient [...] 2 3 Range]: Oxygen Saturation [94-100 %] 99 % 98 % 96 % (09/26/20 1:38 PM) (09/26/20 5:12 AM) (09/26/20 3:53 A M) Pulse Rate [55-90 bpm] 76 bpm 89 bpm 100 bpm (09/26/20 1:38 PM) (09/26/20 5:12 AM) *H* (09/26/20 3:53 AM) Blood Pressure [90-138/55-84 mm 126/78 mm Hg 120/86 mm Hg 172/98 mm Hg Hg] (09/26/20 1:38 PM) (09/26/20 5:12 AM) *H* (09/26/20 3:53 AM) Respiratory Rate [16-30 br/min] 16 br/min 20 br/min 20 br/min (09/26/20 1:38 PM) (09/26/20 5:12 AM) (09/26/20 3:53 A M) Temperature [96.8-100.4 DegF] 98.2 DegF 98.2 DegF 98 .7 DegF (09/26/20 1:38 PM) (09/26/20 5:12 AM) (09/26/20 3:53 A M) Mode of Delivery (Oxygen) Room air Room air Room a ir (09/26/20 1:38 PM) (09/26/20 5:12 AM) (09/26/20 3:53 A M) Blood pressure sites Arm, left Arm, right Arm, right (09/26/20 1:38 PM) (09/26/20 5:12 AM) (09/26/20 3:53 A M) Temperature Route Oral Oral Oral (09/26/20 1:38 PM) (09/26/20 5:12 AM) (09/26/20 3:53 A M) Social History Social History Type Response Smoking Status Former smoker, quit more jenna n 30 days ago entered on: 09/17/20 Sex Male
[2022-08-25 11:21] VITALS: BP 154/82; PULSE 83; RESP 20; TEMP 36.9; O2SAT 95
[2022-08-25 11:25] LABS: COVID-19 Test Positive (Negative); IDNOW Serial# 6674DD1D
[2022-08-25 11:35] LABS: Alanine Aminotransferase 10 U/L (0-40); Albumin Level 3.8 g/dL (3.5-5.0); Alkaline Phosphatase 91 U/L (39-117); Anion Gap 11 (12-20); Aspartate Amino Transferase 13 U/L (5-37); Bilirubin Total 0.7 mg/dL (0.0-1.0); Blood Urea Nitrogen 23 mg/dL (9-16); Calcium 8.9 mg/dL (8.4-10.2); Carbon Dioxide 27 mmol/L (22-29); Chloride 105 mmol/L (96-108); Creatinine Clr Calc Pharmacy 105.4; Estimated Glomerular Filt Rate > 60; Glucose Random 104 mg/dL (60-115); Potassium 4.7 mmol/L (3.3-5.1); Sodium 138 mmol/L (135-145); Total Protein 6.7 g/dL (6.5-8.0)
[2022-08-25 11:45] LABS: IDNOW Serial# 9DD0AD1C; Influenza A Negative (Negative); Influenza B2 Negative (Negative)
--- NOTE | 2022-08-25 13:26 | PC.NURSE ---
patient alert, oriented x3. resting in bed watching tv. denies pain or dizziness. call reece within reach. bed in lowest locked position for comfort.
[2022-08-27 08:38] LABS: Levetiracetam Keppra <2.0 mcg/mL (6.0-46.0)
== END 2022-08-25 15:10 | disposition home or self-care (01) ==
PROVIDERS: Emergency Provider Student in an Organized Health Care Education/Training Program
DX: U07.1 COVID-19 (principal); Z87.820 Personal history of traumatic brain injury
CPT/HCPCS: 36415; 71045; 80053; 80177; 85025; 87502; 87635; 93005; 99283; 99284

== ENCOUNTER 2022-09-11 19:32 | Emergency (ER) | payer MEDICARE, MEDICAID, SELFPAY ==
[2022-09-11 19:38] VITALS: BP 143/85; PULSE 108; RESP 18; TEMP 36.9; O2SAT 95; BMI 43.8
--- NOTE | 2022-09-11 20:34 | ED.GENADULT ---
HPI - General Adult General Chief complaint: Seizure Stated complaint: seizure Time Seen by Provider: 09/11/22 20:13 Source: patient and EMS Limitations: no limitations History of Present Illness HPI narrative: this is a 57-year-old male with history of traumatic brain injury and seizures, who complains of having seizures today. Patient states he stopped his Dilantin about 6 weeks ago. He denies any urinary incontinence, denies headache, denies any recent vomiting or diarrhea. He denies using alcohol or illicit drugs. He states he previously had been on Keppra but it gave him side effects, made him feel dehydrated. The patient lives in an apartment and gives medicines to himself. Related Data Home Medications Medication Instructions Recorded Confirmed clonazepam 1 mg tablet 1 tab PO BEDTIME 08/03/21 02/08/22 phenytoin sodium extended 100 mg 300 mg PO BID Seizure disorder 08/03/21 02/08/22 capsule (Dilantin Extended) Previous Rx's Medication Instructions Recorded ibuprofen 600 mg tablet 600 mg PO Q6H PRN pain #20 tabs 11/25/21 clonazepam 1 mg tablet 1 mg PO BEDTIME #30 tabs 09/11/22 phenytoin sodium extended 300 mg 300 mg PO BID #60 caps 09/11/22 capsule Allergies Allergy/AdvReac Type Severity Reaction Status Date / Time No Known Allergies Allergy Verified 08/25/22 10:56 [No Known Allergies*] Review of Systems Review of Systems: As per HPI Constitutional: Constitutional: Denies fever(s) Eyes: Eyes: Reports no additional eye complaints ENT: Reports system reviewed and no additional complaints, except as documented Cardiovascular: Cardiovascular: Reports no additional cardiovascular complaints Respiratory: Respiratory: Reports no additional respiratory complaints Gastrointestinal: Gastrointestinal: Reports no additional gastrointestinal complaints Genitourinary: Genitourinary: Reports no additional male genitourinary complaints Musculoskeletal: Musculoskeletal: Reports no additional musculoskeletal complaints Neurologic: Reports system reviewed and no additional complaints, except as documented Psychiatric: Psychiatric: Reports no additional psychiatric complaints [facility] Past Medical History Medical History CVA (cerebral vascular accident) History of CVA with residual deficit Seizure disorder TBI (traumatic brain injury) Social History Social History Alcohol intake: never Patient Tobacco Use Status: Former Tobacco user Advance Directives: Yes Advance Directives on File: Yes Advance Directives Date on File: 11/29/20 Physical Exam ED Vital Signs: Vital Signs - 24 hr 09/11/22 19:38 09/11/22 21:31 Temperature 98.5 F Pulse Rate 108 H 100 Respiratory Rate 18 17 Blood Pressure 143/85 H 133/87 Pulse Oximetry 95 92 Oxygen Delivery Method Room Air Room Air BMI result Body Mass Index 43.8 Const General: no acute distress Orientation/consciousness: patient oriented x3 HENMT Head: Yes normal to inspection General nose exam: Normal external nose present Mouth: moist mucous membranes Throat: Yes posterior oropharynx normal, Yes tonsils normal and Yes uvula midline Eyes Eyelids: Yes eyelids normal Conjunctivae: conjunctivae normal Pupils: Equal, round and reactive pupils present Neck Neck: Yes supple Resp Effort & Inspection: normal respiratory effort Auscultation: clear to auscultation bilaterally Cardio Rate: regular rate Rhythm: regular rhythm Heart sounds: S1 normal heart sound present, S2 normal heart sound present, no gallops, no murmurs and no rubs GI Inspection: No distended Palpation (GI): Soft to palpation and nontender Auscultation: normal bowel sounds Skin General skin exam: other (Warm and dry) Neuro General: patient oriented x3 and CN's II-XI intact bilaterally Cranial nerves: Yes Equal, round and reactive pupils present Extrem General: Yes no pedal edema Psych Affect: normal affect Attitude: cooperative Medications Administered Discontinued Medications Generic Name Dose Route Start Last Admin Trade Name Freq PRN Reason Stop Dose Admin Clonazepam 1 mg 09/11/22 22:10 09/11/22 22:32 Clonazepam 1 Mg Tablet PO 09/11/22 22:11 1 mg ONCE ONE Administration Phenytoin Sodium 1,000 mg/ 120 mls @ 120 mls/hr 09/11/22 20:21 09/11/22 21:35 Sodium Chloride IV 09/11/22 20:22 Not Given ONCE ONE Phenytoin Sodium 1,000 mg 09/11/22 21:00 09/11/22 21:12 Phenytoin Sodium 100 Mg/2 Ml Vial IV 09/11/22 21:01 1,000 mg ONCE ONE Administration Protocol Medical Decision Making Medical Decision Making MDM Narrative: patient with a history of generalized seizures, had been on Dilantin but stopped it for unclear reasons. Patient allegedly had seizures today but did not appear postictal. Labs unremarkable. Dilantin level essentially 0. Patient was given a g of Dilantin IV. he also stated that he had done clonazepam q.h.s. which seemed to help a lot. He was given clonazepam 1 mg p.o. here. Patient is being prescribed Dilantin 300 mg p.o. b.i.d., as was his prior dosing,and clonazepam 1 mg q.h.s.. Patient can follow up with primary care physician Differential Diagnosis medication refill, status epilepticus, generalized seizure, traumatic brain injury sequelae Lab Data 09/11/22 21:04 09/11/22 21:04 Labs: Lab Results 09/11/22 09/11/22 09/11/22 Range/Units 21:04 21:04 21:04 WBC 11.3 H (4.8-10.8) X10*3/uL RBC 4.93 (4.60-5.80) X10*6/uL Hgb 14.7 (14.0-18.0) g/dl Hct 45.5 (42.0-52.0) % MCV 92.3 (80.0-98.0) fL MCH 29.8 (27.0-33.0) pg MCHC 32.3 (31.0-36.0) g/dl RDW 12.1 (11.0-16.0) % Plt Count 269 (160-400) X10*3/uL MPV 8.0 L (9.4-12.4) fL Immature Gran % (Auto) 0.3 (0.0-0.4) % Neut % (Auto) 70.1 (45-73) % Lymph % (Auto) 13.4 L (20-40) % [place] % (Auto) 11.5 H (2-11) % Eos % (Auto) 4.0 (0-4) % Baso % (Auto) 0.7 (0-2) % Lymph # (Auto) 1.5 (1.2-4.9) X10*3/uL [place] # (Auto) 1.3 H (0.1-1.2) X10*3/uL Eos # (Auto) 0.5 H (0.0-0.4) X10*3/uL Baso # (Auto) 0.1 (0.0-0.2) X10*3/uL Abs Immat Gran (auto) 0.03 (0.00-0.03) X10*3/uL Absolute Neuts (auto) 7.9 (2.0-8.3) x10*3/uL Absolute Nucleated RBC 0.000 (0.0-0.012) X10*3/uL Nucleated RBC % (auto) 0.0 (0.0-0.2) /100WBC Sodium 136 (135-145) mmol/L Potassium 3.3 D (3.3-5.1) mmol/L Chloride 102 (96-108) mmol/L Carbon Dioxide 28 (22-29) mmol/L Anion Gap 9 L (12-20) BUN 19 H (9-16) mg/dL Creatinine 0.86 (0.5-1.4) mg/dL Estim Creat Clear Calc 119.7 Estimated GFR > 60 Random Glucose 150 H (60-115) mg/dL Calcium 8.6 (8.4-10.2) mg/dL Total Bilirubin 0.4 (0.0-1.0) mg/dL AST 12 (5-37) U/L ALT 9 (0-40) U/L Alkaline Phosphatase 87 (39-117) U/L Total Protein 6.2 L (6.5-8.0) g/dL Albumin 3.6 (3.5-5.0) g/dL Phenytoin < 1.8 L* (10.0-20.0) ug/mL Tests considered The following testing was considered but not selected: CT brain Prescription Management I considered prescription management with: Other ( anti eleptic) Chronic Conditions Patient?s care impacted by: Other ( traumatic brain injury) Social Determinants Patient?s care significantly limited by Social Determinants of Health including: Other Social Determinant of Health low functioning due to traumatic brain injury Discharge Plan Discharge Clinical Impression: Generalized seizure Patient Disposition: Home, Self-Care Instructions: Seizures After Traumatic Brain Injury (ED) Additional Instructions: restart sure Dilantin as prescribed, 30 mg twice a day. Restart the clonazepam 1 mg at bedtime as prescribed. Follow up with her primary care physician in 1-2 weeks for recheck and to evaluate your Dilantin level. Return for any new or worsened symptoms Prescriptions: New phenytoin sodium extended 300 mg capsule 300 mg PO BID Qty: 60 0RF clonazepam 1 mg tablet 1 mg PO BEDTIME Qty: 30 0RF No Action clonazepam 1 mg tablet 1 tab PO BEDTIME phenytoin sodium extended [Dilantin Extended] 100 mg capsule 300 mg PO BID ibuprofen 600 mg tablet 600 mg PO Q6H PRN (Reason: pain) Qty: 20 0RF Interventions: ED Discharge Assessment Last Done: 09/11/22 22:21 Discharge Date/Time: 09/11/22 23:05
[2022-09-11 21:08] LABS: MANUAL DIFF FLAG NO
[2022-09-11 21:09] LABS: Basophils Absolute Auto 0.1 X10*3/uL (0.0-0.2); Basophils Percent Auto 0.7 % (0-2); Eosinophils Absolute Auto 0.5 X10*3/uL (0.0-0.4); Hematocrit 45.5 % (42.0-52.0); Hemoglobin 14.7 g/dl (14.0-18.0); Imm Gran Abs Auto 0.03 X10*3/uL (0.00-0.03); Imm Gran Pct Auto 0.3 % (0.0-0.4); Lymphocytes Absolute Auto 1.5 X10*3/uL (1.2-4.9); Lymphocytes Percent Auto 13.4 % (20-40); Mean Corpuscular HGB Conc 32.3 g/dl (31.0-36.0); Mean Corpuscular Hemoglobin 29.8 pg (27.0-33.0); Mean Corpuscular Volume 92.3 fL (80.0-98.0); Monocytes Absolute Auto 1.3 X10*3/uL (0.1-1.2); Monocytes Percent Auto 11.5 % (2-11); Neutrophils Absolute Auto 7.9 x10*3/uL (2.0-8.3); Neutrophils Percent Auto 70.1 % (45-73); Platelet Count 269 X10*3/uL (160-400); Red Blood Count 4.93 X10*6/uL (4.60-5.80); Red Cell Distribution Width 12.1 % (11.0-16.0); White Blood Count 11.3 X10*3/uL (4.8-10.8)
[2022-09-11] MEDS: Phenytoin Sodium 100 MG/2 ML VIAL 1000 MG IV (21:12)
[2022-09-11 21:31] VITALS: BP 133/87; PULSE 100; RESP 17; O2SAT 92
[2022-09-11 21:34] LABS: Alanine Aminotransferase 9 U/L (0-40); Albumin Level 3.6 g/dL (3.5-5.0); Alkaline Phosphatase 87 U/L (39-117); Anion Gap 9 (12-20); Aspartate Amino Transferase 12 U/L (5-37); Bilirubin Total 0.4 mg/dL (0.0-1.0); Blood Urea Nitrogen 19 mg/dL (9-16); Calcium 8.6 mg/dL (8.4-10.2); Carbon Dioxide 28 mmol/L (22-29); Chloride 102 mmol/L (96-108); Creatinine Clr Calc Pharmacy 119.7; Estimated Glomerular Filt Rate > 60; Glucose Random 150 mg/dL (60-115); Potassium 3.3 mmol/L (3.3-5.1); Sodium 136 mmol/L (135-145); Total Protein 6.2 g/dL (6.5-8.0)
[2022-09-11 21:35] LABS: Phenytoin Dilantin < 1.8 ug/mL (10.0-20.0)
[2022-09-11] MEDS: clonazePAM 1 MG TABLET PO (22:32)
== END 2022-09-11 23:05 | disposition home or self-care (01) ==
PROVIDERS: Emergency Provider Emergency Medicine
DX: R56.9 Unspecified convulsions (principal); Z79.899 Other long term (current) drug therapy; Z87.891 Personal history of nicotine dependence
CPT/HCPCS: 36415; 80053; 80185; 85025; 96374; 99283; 99284

== ENCOUNTER 2022-10-07 18:33 | Emergency (ER) | payer MEDICARE, MEDICAID, SELFPAY ==
--- NOTE | 2022-10-07 16:18 | ECG_ITS ---
Test Reason : chest pain Blood Pressure : / mmHG Vent. Rate : 094 BPM Atrial Rate : 094 BPM P-R Int : 154 ms QRS Dur : 090 ms QT Int : 354 ms P-R-T Axes : 057 071 054 degrees QTc Int : 442 ms Normal sinus rhythm Possible Left atrial enlargement Borderline ECG When compared with ECG of 25-AUG-2022 10:54, No significant change was found Referred By: Generic ED Physician Electronically Signed By:Kb Small
[2022-10-07 18:37] VITALS: BP 120/79; PULSE 100; RESP 17; TEMP 37; O2SAT 96
--- NOTE | 2022-10-07 18:44 | ED_ITS ---
HPI - Seizure General Chief Complaint: Seizure Stated Complaint: WEAKNESS,ALTERED PER EMS Time Seen by Provider: 10/07/22 18:39 Source: patient Mode of arrival: ambulatory History of Present Illness HPI Narrative: 57 year old male presents to the ED with known seizure disorder. He was in his wheelchair which he uses regularly and getting ready for a loomis's day dinner but was acting odd. He did crash his wheelchair but did not injure himself or hit his head. He was sent in for odd behavior. He is on phenytoin. Patient denies cough fever chest pain nausea vomiting or diarrhea. MD complaint: seizure and possible seizure Seizure History: Yes Related Data Home Medications Medication Instructions Recorded Confirmed melatonin 10 mg tablet 10 mg PO BEDTIME 10/07/22 10/07/22 Previous Rx's Medication Instructions Recorded clonazepam 1 mg tablet 1 mg PO BEDTIME #30 tabs 09/11/22 Allergies Allergy/AdvReac Type Severity Reaction Status Date / Time No Known Allergies Allergy Verified 08/25/22 10:56 [No Known Allergies*] Review of Systems Review of Systems: Review of systems: General: Patient denies any fever chills recent illness or falls Musculoskeletal: Denies back pain or body aches or other injuries HEENT: denies headache, runny nose, ear pain Respiratory: denies shortness of breath, cough Cardiovascular: no chest pain or palpitations : denies dysuria, frequency Abdomen: no nausea vomiting denies abdominal pain Extremities: no swelling, no pain Skin: no diaphoresis Yes all other systems are reviewed and are negative [facility] Past Medical History Medical History CVA (cerebral vascular accident) History of CVA with residual deficit Seizure disorder TBI (traumatic brain injury) Social History Social History Alcohol intake: never Patient Tobacco Use Status: Former Tobacco user Advance Directives: Yes Advance Directives on File: Yes Advance Directives Date on File: 11/29/20 Physical Exam Vital Signs: Vital Signs: Last Vital Signs Temp 98.6 F 10/07/22 18:46 Pulse 98 10/07/22 18:46 Resp 17 10/07/22 18:37 BP 120/79 10/07/22 18:37 Pulse Ox 95 10/07/22 18:46 O2 Del Method 10/07/22 18:46 BMI result Body Mass Index 39.1 Neurological exam: CN II- XII tested. Patient is alert and oriented to person place and time. Patient has no dysphagia or dysarthia, denies good vision in all four vision reynoso no nystagmus on exam, good strength to upper and lower extremities with normal reflexes to brachioradialis, wrist, patella and achilles. Negative romberg, good finger to nose and heel to corona. General: Well-appearing well-nourished in no signs of distress HEENT: Normocephalic atraumatic Neck: No signs of JVD, no masses no tenderness or lymphadenopathy Cardiovascular: Regular rate and rhythm Respiratory: Clear to auscultation bilaterally Abdomen: Soft nontender no masses Extremities: Normal pedal pulses no signs of edema Skin: Dry warm no rashes Back: No tenderness full ROM Medications Administered Discontinued Medications Generic Name Dose Route Start Last Admin Trade Name Freq PRN Reason Stop Dose Admin Sodium Chloride 1,000 mls @ 999 mls/hr 10/07/22 18:45 10/07/22 18:50 Ns IV 10/07/22 19:45 999 mls/hr .Q1H1M JAROD Administration Lorazepam 2 mg 10/07/22 18:40 10/07/22 18:57 Lorazepam 2 Mg/Ml Vial IV 10/07/22 18:41 2 mg STAT STA Administration Medical Decision Making Medical Decision Making [facility] Narrative: a check labs including Dilantin level and phenytoin as well as ammonia 2nd be affected by phenytoin. I will give patient fluids check labs I do not think patient needs any imaging as he has no visual trauma. On exam he shows no injuries he is able to move all extremities without any issues will give patient fluids and Ativan on arrival. Labs look okay he remains stable at this time. He has had no more issues I don't think there is any reason for admission at this time I will send home with PCP follow up. Differential Diagnosis Differential Diagnoses: The differential diagnosis associated with the presentation includes recurrent seizure noncompliance diabetes medications low Dilantin level withdrawal from Ativan or alcohol intoxication Admission/Observation Consideration of admission/observation: Escalation of care including admission/observation considered Consult Healthcare Provider Management of the patient was discussed with: Hospitalist Lab Data [facility] Lab Attestation statement: I reviewed the patient's lab results. 10/07/22 20:13 10/07/22 20:13 Labs: Lab Results 10/07/22 10/07/22 10/07/22 Range/Units 19:19 20:13 20:13 WBC 11.9 H (4.8-10.8) X10*3/uL RBC 5.23 (4.60-5.80) X10*6/uL Hgb 15.6 (14.0-18.0) g/dl Hct 48.6 (42.0-52.0) % MCV 92.9 (80.0-98.0) fL MCH 29.8 (27.0-33.0) pg MCHC 32.1 (31.0-36.0) g/dl RDW 12.0 (11.0-16.0) % Plt Count 311 (160-400) X10*3/uL MPV 8.2 L (9.4-12.4) fL Immature Gran % (Auto) 0.3 (0.0-0.4) % Neut % (Auto) 71.6 (45-73) % Lymph % (Auto) 13.1 L (20-40) % Medina % (Auto) 9.4 (2-11) % Eos % (Auto) 5.0 H (0-4) % Baso % (Auto) 0.6 (0-2) % Lymph # (Auto) 1.6 (1.2-4.9) X10*3/uL Medina # (Auto) 1.1 (0.1-1.2) X10*3/uL Eos # (Auto) 0.6 H (0.0-0.4) X10*3/uL Baso # (Auto) 0.1 (0.0-0.2) X10*3/uL Abs Immat Gran (auto) 0.03 (0.00-0.03) X10*3/uL Absolute Neuts (auto) 8.5 H (2.0-8.3) x10*3/uL Absolute Nucleated RBC 0.000 (0.0-0.012) X10*3/uL Nucleated RBC % (auto) 0.0 (0.0-0.2) /100WBC Lactic Acid 1.9 (0.5-2.0) mmol/L Valproic Acid (50.0-100.0) mcg/mL Ethyl Alcohol mg/dL COVID-19 (PASCUAL) Positive A (Negative) COVID-19 Clin Com See Note 10/07/22 10/07/22 Range/Units 20:13 20:13 WBC (4.8-10.8) X10*3/uL RBC (4.60-5.80) X10*6/uL Hgb (14.0-18.0) g/dl Hct (42.0-52.0) % MCV (80.0-98.0) fL MCH (27.0-33.0) pg MCHC (31.0-36.0) g/dl RDW (11.0-16.0) % Plt Count (160-400) X10*3/uL MPV (9.4-12.4) fL Immature Gran % (Auto) (0.0-0.4) % Neut % (Auto) (45-73) % Lymph % (Auto) (20-40) % Medina % (Auto) (2-11) % Eos % (Auto) (0-4) % Baso % (Auto) (0-2) % Lymph # (Auto) (1.2-4.9) X10*3/uL Medina # (Auto) (0.1-1.2) X10*3/uL Eos # (Auto) (0.0-0.4) X10*3/uL Baso # (Auto) (0.0-0.2) X10*3/uL Abs Immat Gran (auto) (0.00-0.03) X10*3/uL Absolute Neuts (auto) (2.0-8.3) x10*3/uL Absolute Nucleated RBC (0.0-0.012) X10*3/uL Nucleated RBC % (auto) (0.0-0.2) /100WBC Lactic Acid (0.5-2.0) mmol/L Valproic Acid < 12.5 L (50.0-100.0) mcg/mL Ethyl Alcohol < 10 mg/dL COVID-19 (PASCUAL) (Negative) COVID-19 Clin Com Procedures Procedure Narrative Procedure Narrative: patient did initially get labs and blood work was given Ativan. Again the IV infiltrated. On my 2nd try the ultrasound guidance I was able to put a 20 gauge IV in the right AC. Patient tolerated the procedure well. Discharge Plan Discharge Clinical Impression: Epileptic seizure, COVID-19 Patient Disposition: Home, Self-Care Additional Instructions: Please call to follow up with your doctor. Prescriptions: No Action clonazepam 1 mg tablet 1 mg PO BEDTIME Qty: 30 0RF melatonin 10 mg Tablet 10 mg PO BEDTIME
[2022-10-07 18:46] VITALS: BP 170/88; PULSE 110; PULSE 98; TEMP 37; O2SAT 95; O2SAT 96; BMI 39.1
[2022-10-07] MEDS: 0.9 % Sodium Chloride 1,000 ML 999 ML IV (18:50)
[2022-10-07] MEDS: LORazepam 2 MG/ML VIAL IV (18:57)
--- NOTE | 2022-10-07 19:33 | MHC.EDTECH ---
THIS CIGARETTE ROLLER IS UNABLE TO GET BLOOD WORK RN WAS NOTIFY 2X
--- NOTE | 2022-10-07 19:33 | PC.NURSE ---
iv placed pt medicated according to oct. this rn attempted 2nd iv as well sa blood work. unable to obtain. social media analyst attempted awaiting for additional social media analyst to attempt at this time. seizure pads in place at this time. pt resting on stretcher at this time
[2022-10-07 19:39] LABS: COVID-19 Test Positive (Negative); IDNOW Serial# 16C4AD1C
--- NOTE | 2022-10-07 19:44 | PHA.MEDREC ---
Pharmacy Consult ? Medication Reconciliation Pharmacy has completed the medication reconciliation. Pt states that he does not take dilantin, and has stopped taking keppra because it caused him to loose his fingernails
[2022-10-07 20:19] LABS: MANUAL DIFF FLAG NO
[2022-10-07 20:20] LABS: Basophils Absolute Auto 0.1 X10*3/uL (0.0-0.2); Basophils Percent Auto 0.6 % (0-2); Eosinophils Absolute Auto 0.6 X10*3/uL (0.0-0.4); Hematocrit 48.6 % (42.0-52.0); Hemoglobin 15.6 g/dl (14.0-18.0); Imm Gran Abs Auto 0.03 X10*3/uL (0.00-0.03); Imm Gran Pct Auto 0.3 % (0.0-0.4); Lymphocytes Absolute Auto 1.6 X10*3/uL (1.2-4.9); Lymphocytes Percent Auto 13.1 % (20-40); Mean Corpuscular HGB Conc 32.1 g/dl (31.0-36.0); Mean Corpuscular Hemoglobin 29.8 pg (27.0-33.0); Mean Corpuscular Volume 92.9 fL (80.0-98.0); Mean Platelet Volume 8.2 fL (9.4-12.4); Monocytes Absolute Auto 1.1 X10*3/uL (0.1-1.2); Monocytes Percent Auto 9.4 % (2-11); Neutrophils Absolute Auto 8.5 x10*3/uL (2.0-8.3); Neutrophils Percent Auto 71.6 % (45-73); Platelet Count 311 X10*3/uL (160-400); Red Blood Count 5.23 X10*6/uL (4.60-5.80); White Blood Count 11.9 X10*3/uL (4.8-10.8)
[2022-10-07 20:30] LABS: Lactic Acid 1.9 mmol/L (0.5-2.0)
[2022-10-07 20:52] LABS: Ethanol < 10 mg/dL; Valproate < 12.5 mcg/mL (50.0-100.0)
--- NOTE | 2022-10-07 21:06 | PC.NURSE ---
DR HOPKINS HELD lr AT THIS TIME. CHARTED IN MAR
[2022-10-08 01:04] LABS: Anion Gap 17 (12-20)
[2022-10-08 01:08] LABS: Alanine Aminotransferase 11 U/L (0-40); Alkaline Phosphatase 102 U/L (39-117); Aspartate Amino Transferase 14 U/L (5-37); Bilirubin Direct < 0.2 mg/dL (0.0-0.5); Bilirubin Total 0.4 mg/dL (0.0-1.0); Blood Urea Nitrogen 20 mg/dL (9-16); Calcium 8.9 mg/dL (8.4-10.2); Carbon Dioxide 24 mmol/L (22-29); Chloride 105 mmol/L (96-108); Creatinine Clr Calc Pharmacy 106.4; Estimated Glomerular Filt Rate > 60; Glucose Random 108 mg/dL (60-115); Lipase 29 U/L (8-78); Potassium 3.9 mmol/L (3.3-5.1); Sodium 142 mmol/L (135-145); Total Protein 7.1 g/dL (6.5-8.0)
== END 2022-10-08 02:50 | disposition home or self-care (01) ==
PROVIDERS: Emergency Provider Student in an Organized Health Care Education/Training Program
DX: U07.1 COVID-19 (principal); R56.9 Unspecified convulsions; R07.89 Other chest pain; Z87.891 Personal history of nicotine dependence; Z79.899 Other long term (current) drug therapy
CPT/HCPCS: 36415; 80048; 80076; 80164; 82077; 83605; 83690; 85025; 87635; 93005; 96361; 96374; 99284; J2060

== ENCOUNTER 2022-10-11 18:08 | Emergency (ER) | payer MEDICARE, MEDICAID, SELFPAY ==
--- NOTE | 2022-10-11 | ECG_ITS ---
Test Reason : SZ Blood Pressure : / mmHG Vent. Rate : 101 BPM Atrial Rate : 101 BPM P-R Int : 164 ms QRS Dur : 092 ms QT Int : 346 ms P-R-T Axes : 060 064 055 degrees QTc Int : 448 ms Sinus tachycardia with Premature atrial complexes Otherwise normal ECG When compared with ECG of 07-OCT-2022 18:51, Premature atrial complexes are now Present Referred By: Generic ED Physician Electronically Signed By:Kb Small
[2022-10-11 18:14] VITALS: BP 157/82; BP 161/84; PULSE 100; PULSE 88; RESP 18; TEMP 37.6; O2SAT 95; BMI 43.0
[2022-10-11 18:17] VITALS: BP 161/84; PULSE 103; RESP 18; TEMP 37.6; O2SAT 96
--- NOTE | 2022-10-11 18:23 | ED.SEIZURE ---
HPI - Seizure General Chief Complaint: Seizure Stated Complaint: seizure Time Seen by Provider: 10/11/22 18:20 Source: patient and EMS Mode of arrival: EMS Limitations: no limitations History of Present Illness HPI Narrative: 57-year-old male history of TBI/CVA and seizure disorder since age of 1, patient stated that he is not taking any anti seizure medication because they do not work for him, patient only take clonazepam to help him to sleep. Patient had seizure episode today, no head injury, no urinary incontinence. Patient feels the seizure is very normal as his previous seizure episodes in the past patient do not feel any abnormal symptoms after a seizure. No headache, feels hungry with good appetite. Seizure History: Yes Place: Home Related Data Home Medications Medication Instructions Recorded Confirmed melatonin 10 mg tablet 10 mg PO BEDTIME 10/07/22 10/07/22 Previous Rx's Medication Instructions Recorded clonazepam 1 mg tablet 1 mg PO BEDTIME #30 tabs 09/11/22 Allergies Allergy/AdvReac Type Severity Reaction Status Date / Time No Known Allergies Allergy Verified 08/25/22 10:56 [No Known Allergies*] Review of Systems Review of Systems: All other systems are reviewed and are negative Constitutional: Reports as per HPI and Reports no additional constitutional complaints Eyes: Reports as per HPI and Reports no additional eye complaints Reports system reviewed and no additional complaints, except as documented Cardiovascular: Reports as per HPI and Reports no additional cardiovascular complaints Respiratory: Reports as per HPI and Reports no additional respiratory complaints Gastrointestinal: Reports as per HPI and Reports no additional gastrointestinal complaints Genitourinary: Reports no additional female genitourinary complaints Musculoskeletal: Reports no additional musculoskeletal complaints Skin/Breast: Reports system reviewed and no additional complaints, except as docu Psychiatric: Reports no additional psychiatric complaints Endocrine: Reports no additional endocrine complaints Hematologic/Lymphatic: Reports no additional hematologic/lymphatic complaints Allergic/Immunologic: Reports no additional allergic/immunologic complaints Reports system reviewed and no additional complaints, except as documented and Reports Abnormal speech present PMFSH Past Medical History Medical History CVA (cerebral vascular accident) History of CVA with residual deficit Seizure disorder TBI (traumatic brain injury) Social History Social History Alcohol intake: never Patient Tobacco Use Status: Former Tobacco user Advance Directives: No Advance Directives Information Provided: No Advance Directives Date on File: 11/29/20 Physical Exam Vital Signs: Vital Signs: Last Vital Signs Temp 99.6 F 10/11/22 18:17 Pulse 103 H 10/11/22 18:17 Resp 18 10/11/22 18:17 BP 161/84 H 10/11/22 18:17 Pulse Ox 96 10/11/22 18:17 O2 Del Method 10/11/22 18:17 BMI result Body Mass Index 43.0 Vital signs have been reviewed as appeared to be correct. Blood pressure normal. Heart rate normal. Respiration rate normal. Temperature normal. Oxygen saturation normal. Appearance: Alert. Oriented X3. No acute distress. Head: Normal external exam. Normocephalic. Atraumatic. No Vidal signs noted. No raccoon eyes noted Eyes: PERRLA. EOMI. Conjunctiva and sclera normal. Eyelids normal. ENT: TM's Normal. Pharynx normal. Uvula midline. Moist mucous membranes. No trismus noted. No drooling noted. No muffled voice noted. Neck: Normal inspection. Neck supple. FROM. No adenopathy. Thyroid Normal. No meningeal signs. No neck mass noted. CVS: Normal heart rate and rhythm. Heart sound normal. No murmurs noted. Pulses normal throughout. Respiratory: No respiratory distress. Painless inspiration. Breath sounds normal. No wheezes/rales/rhonchi noted. Chest nontender. No accessory muscle usage noted or decreased air movement noted. Abdomen: Soft and nontender. Bowel sounds normal in all 4 quadrants. No distention noted. No organomegaly noted. No visible injury noted. Back: No CVA tenderness. Full range of motion noted. Skin: Skin warm and dry. Normal skin color. Normal skin turgor. No rashes/lesions/lacerations noted. Extremities: No lower extremity edema. Extremities exhibit normal range of motion. Extremities nontender. Neuro: Oriented X 3. Cranial nerve exam: II-XII are grossly intact No motor deficit. No sensory deficit. Reflexes normal. Course Course Course Narrative: 57-year-old male with longstanding history of seizure had multiple ED visits for similar presentation, patient stated that he had a seizure today which is similar to his previous seizure in the past has no abnormal symptoms, patient currently is not on any anti seizure medication just take clonazepam for p.r.n. Patient at baseline will discharge the patient to follow-up with his neurologist. Medical Decision Making Differential Diagnosis Seizure, trauma. Discharge Plan Discharge Clinical Impression: Generalized seizure Patient Disposition: Home, Self-Care Instructions: Recurrent Seizures in Adults (ED) Additional Instructions: Follow-up with your neurologist. Prescriptions: No Action clonazepam 1 mg tablet 1 mg PO BEDTIME Qty: 30 0RF melatonin 10 mg Tablet 10 mg PO BEDTIME
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
--- NOTE | 2022-10-11 19:08 | PC.NURSE ---
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
--- NOTE | 2022-10-11 19:37 | PC.NURSE ---
Discharge instructions given/explained to patient/EMS, no apparent distress, pt speaking in full sentences, alert and oriented, discharged via EMS Morgan wong
[2022-10-11 20:06] LABS: Glucose, Whole Blood 145 mg/dL (60-115)
== END 2022-10-11 19:33 | disposition home or self-care (01) ==
PROVIDERS: Emergency Provider Emergency Medicine
DX: G40.409 Other generalized epilepsy and epileptic syndromes, not intractable, without status epilepticus (principal); Z86.73 Personal history of transient ischemic attack (TIA), and cerebral infarction without residual deficits; Z79.899 Other long term (current) drug therapy; Z87.891 Personal history of nicotine dependence
CPT/HCPCS: 82947; 93005; 99283; 99284

== ENCOUNTER 2022-11-01 15:38 | Emergency (ER) | payer MEDICARE, MEDICAID, SELFPAY ==
--- NOTE | ~2022-11-01 | CT_ITS ---
EXAMINATION: CT HEAD WITHOUT CONTRAST CLINICAL INFORMATION: Seizure COMPARISON: 02/08/2022 CT head TECHNIQUE: Contiguous axial imaging was performed from the skull base to vertex without intravenous administration of contrast. This CT examination was performed using dose optimization techniques as appropriate, variously including the following: *Automated exposure control *Adjustment of mA and/or kV according to patient size (this includes techniques or standardized protocols for targeted exams where dose is matched to indication/reason for exam; i.e. extremities or head) *Use of iterative reconstruction technique DLP: 750 mGy-cm FINDINGS: There is no evidence of acute intracranial hemorrhage or territorial infarction. No abnormal mass effect or midline shift is seen. Davies to white matter differentiation is well preserved. No extra-axial fluid collections are identified. The ventricles are normal in size. Similar cerebellum atrophy.. No acute calvarial fracture.. Paranasal sinuses and mastoid air cells are well-aerated. CT/CT head/brain wo IV con IMPRESSION: No CT evidence of acute intracranial hemorrhage or edematous territorial infarction, as compared to prior CT of 02/09/2022.
--- NOTE | 2022-11-01 15:48 | ECG_ITS ---
Test Reason : SEIZURE Blood Pressure : / mmHG Vent. Rate : 087 BPM Atrial Rate : 087 BPM P-R Int : 162 ms QRS Dur : 092 ms QT Int : 370 ms P-R-T Axes : 040 064 048 degrees QTc Int : 445 ms Sinus rhythm with Premature atrial complexes Otherwise normal ECG When compared with ECG of 11-OCT-2022 18:23, No significant change was found Referred By: Carmela Nobles Electronically Signed By:DEDRA BALTAZAR
[2022-11-01 16:00] VITALS: BP 154/65; PULSE 78; RESP 16; TEMP 36.8; O2SAT 99; BMI 27.4
[2022-11-01 16:01] LABS: MANUAL DIFF FLAG NO
--- NOTE | 2022-11-01 16:02 | PC.NURSE ---
57 y/o M BRIDGER from home for witnessed seizure. pt stopped taking keppra 2 months ago because they kept happening anyway . pt is aox3, VSS at this time. pt in gown, on monitor, EKg done, 18G IV in place, labs drawn and sent, seizure pads in place. awaiting
[2022-11-01 16:03] LABS: Basophils Absolute Auto 0.1 X10*3/uL (0.0-0.2); Basophils Percent Auto 0.7 % (0-2); Eosinophils Absolute Auto 0.5 X10*3/uL (0.0-0.4); Eosinophils Percent Auto 5.7 % (0-4); Hematocrit 49.4 % (42.0-52.0); Imm Gran Abs Auto 0.02 X10*3/uL (0.00-0.03); Imm Gran Pct Auto 0.2 % (0.0-0.4); Lymphocytes Absolute Auto 1.5 X10*3/uL (1.2-4.9); Lymphocytes Percent Auto 17.4 % (20-40); Mean Corpuscular HGB Conc 32.4 g/dl (31.0-36.0); Mean Corpuscular Hemoglobin 30.4 pg (27.0-33.0); Mean Corpuscular Volume 93.9 fL (80.0-98.0); Mean Platelet Volume 8.3 fL (9.4-12.4); Monocytes Absolute Auto 0.8 X10*3/uL (0.1-1.2); Monocytes Percent Auto 9.6 % (2-11); Neutrophils Absolute Auto 5.6 x10*3/uL (2.0-8.3); Neutrophils Percent Auto 66.4 % (45-73); Platelet Count 327 X10*3/uL (160-400); Red Blood Count 5.26 X10*6/uL (4.60-5.80); Red Cell Distribution Width 12.2 % (11.0-16.0); White Blood Count 8.5 X10*3/uL (4.8-10.8)
[2022-11-01 16:15] LABS: Lactic Acid 1.4 mmol/L (0.5-2.0)
[2022-11-01 16:21] LABS: Alanine Aminotransferase 9 U/L (0-40); Alkaline Phosphatase 78 U/L (39-117); Anion Gap 16 (12-20); Aspartate Amino Transferase 15 U/L (5-37); Bilirubin Total 0.9 mg/dL (0.0-1.0); Blood Urea Nitrogen 24 mg/dL (9-16); Carbon Dioxide 24 mmol/L (22-29); Chloride 102 mmol/L (96-108); Creatinine Clr Calc Pharmacy 82.8; Estimated Glomerular Filt Rate > 60; Ethanol < 10 mg/dL; Glucose Random 91 mg/dL (60-115); Magnesium 2.4 mg/dL (1.6-2.6); Potassium 4.4 mmol/L (3.3-5.1); Sodium 138 mmol/L (135-145)
--- NOTE | 2022-11-01 16:31 | ED.SEIZURE ---
HPI - Seizure General Chief Complaint: Seizure Stated Complaint: SEIZURE Time Seen by Provider: 11/01/22 15:52 Source: patient and EMS Mode of arrival: EMS History of Present Illness HPI Narrative: 57-year-old male who lives in assisted living, was watching TV with friends when they report that he had a seizure, he is supposed to be on seizure medication due to TBI, but has stopped taking his medication which is evidenced by anti seizure medication levels that are subtherapeutic both in August and September. Patient denies any fevers, chills, denies any pain anywhere, denies any shortness of breath, denies any GI or symptoms. Patient states he only takes Klonopin. Seizure History: Yes Related Data Home Medications Medication Instructions Recorded Confirmed melatonin 10 mg tablet 10 mg PO BEDTIME 10/07/22 10/07/22 Previous Rx's Medication Instructions Recorded clonazepam 1 mg tablet 1 mg PO BEDTIME #30 tabs 09/11/22 levetiracetam 750 mg tablet 750 mg PO BID 30 days #60 tabs 11/01/22 (Keppra) Allergies Allergy/AdvReac Type Severity Reaction Status Date / Time No Known Allergies Allergy Verified 11/01/22 15:58 [No Known Allergies*] Review of Systems Review of Systems: Pertinent positives and negatives as stated in HPI PMFSH Past Medical History Source: nursing notes reviewed Medical History CVA (cerebral vascular accident) History of CVA with residual deficit Seizure disorder TBI (traumatic brain injury) Social History Social History Alcohol intake: never Patient Tobacco Use Status: Former Tobacco user Advance Directives: No Advance Directives Information Provided: No Advance Directives Date on File: 11/29/20 Physical Exam Vital Signs: Vital Signs: Last Vital Signs Temp 98.2 F 11/01/22 16:00 Pulse 78 11/01/22 16:00 Resp 16 11/01/22 16:00 BP 154/65 H 11/01/22 16:00 Pulse Ox 99 11/01/22 16:00 O2 Del Method 11/01/22 16:00 BMI result Body Mass Index 27.4 VITAL SIGNS: Reviewed. GENERAL: Well developed, well nourished, in no acute distress. HEAD: Normocephalic/atraumatic EYES: PERRLA, EOMI EARS: Ext canals without abnormality NOSE: Nares patent bilateral OROPHARYNX: no oral lesions noted, posterior pharynx clear NECK: Supple, no adenopathy LUNGS: Normal breath sounds. No adventitious sounds or accessory muscle use. SpO2<99> CARDIOVASCULAR: Regular rate and rhythm without noted murmurs ABDOMEN: Soft, non-tender, non-distended with bowel sounds. MUSCULOSKELETAL: No tenderness, deformities, or effusions noted on gross inspection. EXTREMITIES: No cyanosis, clubbing or edema. SKIN: Inspection of the skin reveals no rashes NEUROLOGIC: Alert and oriented x 4. Strength and sensation to light touch were grossly intact x 4. Medical Decision Making Medical Decision Making MDM Narrative: 57-year-old male with 2nd visit for a seizure, known to be off of seizure medication, will Keppra load patient however patient states that he does not take any of these medications and only takes clonazepam. Will evaluate for any evidence of infection, anemia, electrolyte abnormalities, viral infection that would better explain patient's breakthrough seizure other than poor adherence to medication. There are no obvious injuries on the head extremities, no injuries to the oral cavity. I reviewed all investigations and my interpretation is this patient is not currently on any anti seizure medications, he will be Keppra loaded, and I will provide a short course of Keppra for the patient based on his medication refill in June/2022. I will then send my note over to his neurologist as well as instruct the patient to follow-up with the neurologist. He was instructed to do this and 10/11/2022 but I doubt he followed up. Differential Diagnosis Please see the discussion above Lab Data Please see the discussion above 11/01/22 15:50 11/01/22 15:50 Labs: Lab Results 11/01/22 11/01/22 11/01/22 Range/Units 15:50 15:50 15:50 WBC 8.5 (4.8-10.8) X10*3/uL RBC 5.26 (4.60-5.80) X10*6/uL Hgb 16.0 (14.0-18.0) g/dl Hct 49.4 (42.0-52.0) % MCV 93.9 (80.0-98.0) fL MCH 30.4 (27.0-33.0) pg MCHC 32.4 (31.0-36.0) g/dl RDW 12.2 (11.0-16.0) % Plt Count 327 (160-400) X10*3/uL MPV 8.3 L (9.4-12.4) fL Immature Gran % (Auto) 0.2 (0.0-0.4) % Neut % (Auto) 66.4 (45-73) % Lymph % (Auto) 17.4 L (20-40) % Page % (Auto) 9.6 (2-11) % Eos % (Auto) 5.7 H (0-4) % Baso % (Auto) 0.7 (0-2) % Lymph # (Auto) 1.5 (1.2-4.9) X10*3/uL Page # (Auto) 0.8 (0.1-1.2) X10*3/uL Eos # (Auto) 0.5 H (0.0-0.4) X10*3/uL Baso # (Auto) 0.1 (0.0-0.2) X10*3/uL Abs Immat Gran (auto) 0.02 (0.00-0.03) X10*3/uL Absolute Neuts (auto) 5.6 (2.0-8.3) x10*3/uL Absolute Nucleated RBC 0.000 (0.0-0.012) X10*3/uL Nucleated RBC % (auto) 0.0 (0.0-0.2) /100WBC Sodium 138 (135-145) mmol/L Potassium 4.4 (3.3-5.1) mmol/L Chloride 102 (96-108) mmol/L Carbon Dioxide 24 (22-29) mmol/L Anion Gap 16 (12-20) BUN 24 H (9-16) mg/dL Creatinine 0.95 (0.5-1.4) mg/dL Estim Creat Clear Calc 82.8 Estimated GFR > 60 Random Glucose 91 (60-115) mg/dL Lactic Acid 1.4 (0.5-2.0) mmol/L Calcium 9.0 (8.4-10.2) mg/dL Magnesium 2.4 (1.6-2.6) mg/dL Total Bilirubin 0.9 (0.0-1.0) mg/dL AST 15 (5-37) U/L ALT 9 (0-40) U/L Alkaline Phosphatase 78 (39-117) U/L Total Protein 7.0 (6.5-8.0) g/dL Albumin 4.0 (3.5-5.0) g/dL Urine Color Urine Appearance Urine pH (5.0-9.0) Ur Specific [place] (1.005-1.025) Urine Protein (Neg-Trace) mg/dL Urine Glucose (UA) (Negative) mg/dL Urine Ketones (Negative) mg/dL Urine Blood (Negative) Urine Nitrite (Negative) Ur Leukocyte Esterase (Negative) Ethyl Alcohol < 10 mg/dL COVID-19 (PASCUAL) (Negative) COVID-19 Clin Com Influenza Type A (CAROLE) (Negative) Influenza Type B (CAROLE) (Negative) Influenza A & B Note 11/01/22 11/01/22 11/01/22 Range/Units 16:48 16:48 17:25 WBC (4.8-10.8) X10*3/uL RBC (4.60-5.80) X10*6/uL Hgb (14.0-18.0) g/dl Hct (42.0-52.0) % MCV (80.0-98.0) fL MCH (27.0-33.0) pg MCHC (31.0-36.0) g/dl RDW (11.0-16.0) % Plt Count (160-400) X10*3/uL MPV (9.4-12.4) fL Immature Gran % (Auto) (0.0-0.4) % Neut % (Auto) (45-73) % Lymph % (Auto) (20-40) % Page % (Auto) (2-11) % Eos % (Auto) (0-4) % Baso % (Auto) (0-2) % Lymph # (Auto) (1.2-4.9) X10*3/uL Page # (Auto) (0.1-1.2) X10*3/uL Eos # (Auto) (0.0-0.4) X10*3/uL Baso # (Auto) (0.0-0.2) X10*3/uL Abs Immat Gran (auto) (0.00-0.03) X10*3/uL Absolute Neuts (auto) (2.0-8.3) x10*3/uL Absolute Nucleated RBC (0.0-0.012) X10*3/uL Nucleated RBC % (auto) (0.0-0.2) /100WBC Sodium (135-145) mmol/L Potassium (3.3-5.1) mmol/L Chloride (96-108) mmol/L Carbon Dioxide (22-29) mmol/L Anion Gap (12-20) BUN (9-16) mg/dL Creatinine (0.5-1.4) mg/dL Estim Creat Clear Calc Estimated GFR Random Glucose (60-115) mg/dL Lactic Acid (0.5-2.0) mmol/L Calcium (8.4-10.2) mg/dL Magnesium (1.6-2.6) mg/dL Total Bilirubin (0.0-1.0) mg/dL AST (5-37) U/L ALT (0-40) U/L Alkaline Phosphatase (39-117) U/L Total Protein (6.5-8.0) g/dL Albumin (3.5-5.0) g/dL Urine Color Yellow Urine Appearance Cloudy Urine pH 8.0 (5.0-9.0) Ur Specific [place] 1.025 (1.005-1.025) Urine Protein Trace (Neg-Trace) mg/dL Urine Glucose (UA) Negative (Negative) mg/dL Urine Ketones 15 (Negative) mg/dL Urine Blood Negative (Negative) Urine Nitrite Negative (Negative) Ur Leukocyte Esterase Negative (Negative) Ethyl Alcohol mg/dL COVID-19 (PASCUAL) Negative (Negative) COVID-19 Clin Com See Note Influenza Type A (CAROLE) Negative (Negative) Influenza Type B (CAROLE) Negative (Negative) Influenza A & B Note See Note Independent Interpretation I performed an independent interpretation of an: EKG Interpretation: Sinus rhythm with PACs, HR-87, no STEMI, [place]/QRS/QTC is within normal limits Radiology Impression Radiologist Impression: My interpretation is in agreement with radiology's impression of the imaging study. External Record Review External record reviewed: Outpatient record, Prior outpatient labs and Other Pharmacy medications Critical Care Time Critical Care Time Critical Care Time: Yes Total Critical Care Time: 30 Attestation: I personally attest to this time spent taking care of the patient. Discharge Plan Discharge Clinical Impression: Generalized seizure, Medical non-compliance Patient Disposition: Home, Self-Care Instructions: Recurrent Seizures in Adults (ED) Additional Instructions: 1. Resume all home medications as prescribed. 2. I have given you a 2 week supply of Keppra that you should take as prescribed. You have also been Keppra loaded. 3. You must follow-up with your neurologist, Dr. Queen. Do this immediately. Return to the ER for any worsening symptoms. Prescriptions: New levetiracetam [Keppra] 750 mg tablet 750 mg PO BID 30 Days Qty: 60 0RF No Action clonazepam 1 mg tablet 1 mg PO BEDTIME Qty: 30 0RF melatonin 10 mg Tablet 10 mg PO BEDTIME Referrals: Maddie Lin MD [Physician] -
[2022-11-01 17:14] LABS: IDNOW Serial# BCCEAD1C; Influenza B2 Negative (Negative)
[2022-11-01 17:15] LABS: COVID-19 Test Negative (Negative); IDNOW Serial# 6674DD1D; Influenza A Negative (Negative)
[2022-11-01 17:38] LABS: Appearance Urine Cloudy; Color Urine Yellow; Glucose Urine UA Negative (Negative); Leukocyte Esterase Urine Negative (Negative); Nitrite Urine Negative (Negative); Specific Gravity - Urine 1.025 (1.005-1.025); Urine Blood Negative (Negative); Urine Ketones 15 mg/dL (Negative); Urine Protein Trace mg/dL (Neg-Trace)
[2022-11-01 18:53] LABS: Amphetamine Screen Urine Not Detected (Not Detect); Barbiturates, Urine Not Detected (Not Detect); Benzodiazepines Screen Urine Not Detected (Not Detect); Cannabinoid Screen Urine Not Detected (Not Detect); Cocaine Screen Urine Not Detected (Not Detect); Fentanyl, urine Not Detected (Not Detect); Opiate Screen Urine Not Detected (Not Detect); Phencyclidine Screen Urine Not Detected (Not Detect)
[2022-11-01] MEDS: levETIRAcetam 1,000 MG TABLET 1000 MG PO (19:11)
[2022-11-01 19:19] VITALS: BP 157/91; PULSE 85; RESP 20; O2SAT 96
[2022-11-01 19:27] VITALS: BP 146/92; PULSE 85; RESP 18; TEMP 36.8; O2SAT 97
--- NOTE | 2022-11-01 19:47 | PC.NURSE ---
Plan for d/c at this time. Awaiting ambulance transport
[2022-11-01 21:23] VITALS: BP 138/84; PULSE 83; RESP 16; O2SAT 96
== END 2022-11-01 21:25 | disposition home or self-care (01) ==
PROVIDERS: Physician Assistant Medical; Emergency Provider Student in an Organized Health Care Education/Training Program
DX: G40.409 Other generalized epilepsy and epileptic syndromes, not intractable, without status epilepticus (principal); Z91.199 Patient's noncompliance with other medical treatment and regimen due to unspecified reason; Z20.822 Contact with and (suspected) exposure to COVID-19; Z87.891 Personal history of nicotine dependence; Z87.820 Personal history of traumatic brain injury; Z86.73 Personal history of transient ischemic attack (TIA), and cerebral infarction without residual deficits; Z79.899 Other long term (current) drug therapy
CPT/HCPCS: 36415; 70450; 80053; 80307; 81003; 82077; 83605; 83735; 85025; 87502; 87635; 93005; 99284

== ENCOUNTER 2023-06-03 17:39 | Emergency (ER) | payer MEDICARE, SELFPAY ==
--- NOTE | 2023-06-03 17:56 | ED.SEIZURE ---
HPI - Seizure General Chief Complaint: Seizure Stated Complaint: witnessed.SZ lasting approx 2 mins Time Seen by Provider: 06/03/23 17:49 Source: patient and EMS Mode of arrival: EMS History of Present Illness HPI Narrative: This is a 57 years old with history of TBI and epilepsy he states that he has seizure almost weekly presented in with another seizure. He is awake alert in no distress. He states he is not taking any antiepileptic medication at this time MD complaint: seizure Onset (ago): hour(s) (3) Witnessed: Yes - by Bystander Seizure History: Yes Associated symptoms: denies other symptoms Related Data Home Medications Medication Instructions Recorded Confirmed melatonin 10 mg tablet 10 mg PO BEDTIME 10/07/22 10/07/22 Previous Rx's Medication Instructions Recorded clonazepam 1 mg tablet 1 mg PO BEDTIME #30 tabs 09/11/22 levetiracetam 750 mg tablet 750 mg PO BID 30 days #60 tabs 11/01/22 (Keppra) Allergies Allergy/AdvReac Type Severity Reaction Status Date / Time No Known Allergies Allergy Verified 11/01/22 15:58 [No Known Allergies*] Review of Systems Constitutional: Constitutional: Reports no additional constitutional complaints and Denies weakness Cardiovascular: Cardiovascular: Reports no additional cardiovascular complaints Neurologic: Denies weakness PMFSH Past Medical History Medical History History of CVA with residual deficit CVA (cerebral vascular accident) Seizure disorder TBI (traumatic brain injury) Social History Social History Alcohol intake: never Patient Tobacco Use Status: Former Tobacco user Advance Directives: No Advance Directives Information Provided: No Advance Directives Date on File: 11/29/20 Physical Exam Vital Signs: Vital Signs: Last Vital Signs Temp 97.7 F 06/03/23 20:54 Pulse 94 06/03/23 20:54 Resp 17 06/03/23 20:54 BP 141/79 H 06/03/23 20:54 Pulse Ox 95 06/03/23 20:54 O2 Del Method Room Air 06/03/23 20:54 BMI result Body Mass Index 33.5 Const: General: cooperative, healthy appearing, no acute distress and well developed Nutritional Appearance: well nourished Orientation/consciousness: oriented to person and patient oriented x3 HEENT: Head: Yes normal to inspection Ears: hearing grossly normal bilaterally Face and sinus: Yes normal facial exam Mouth: Normal oral and palatal mucosa present Throat: Yes posterior oropharynx normal Neck: Neck: Yes normal visual inspection and Yes full ROM Resp: Effort & Inspection: normal respiratory effort Auscultation: clear to auscultation bilaterally Cardio: Jugular venous distension: no JVD Rate: regular rate Rhythm: regular rhythm GI: Inspection: Yes normal to inspection Palpation (GI): Soft to palpation, not firm, nontender and no guarding Skin: General skin exam: no rashes or lesions noted Lesions: no lesions Rashes: no rashes Neuro: General: oriented to person and patient oriented x3 Cognition (Neuro): normal cognition Course Reevaluation(s) Reevaluation #1: Remains stable, patient has history of TBI but he lives by himself, it is unclear to me why he is not on antiepileptic medication at this time I will start him on Keppra. Patient no services at home. Will keep him overnight and consult the case repairer in a.m. I signed out the case to the next attending Dr Spaulding Time: 21:45 Medications Administered Discontinued Medications Generic Name Dose Route Start Last Admin Trade Name Freq PRN Reason Stop Dose Admin Sodium Chloride 1,000 mls @ 999 mls/hr 06/03/23 18:00 06/03/23 19:25 Ns IVCONT 06/03/23 19:00 999 mls/hr .Q1H1M JAROD Administration Levetiracetam 1,500 mg in 100 mls @ 400 mls/hr 06/03/23 18:15 06/03/23 19:25 Keppra IV 06/03/23 18:29 400 mls/hr ONCE ONE Administration Medical Decision Making Medical Decision Making MDM Narrative: Patient presented with seizure will check his labs magnesium observe and reassessed Differential Diagnosis Differential Diagnoses: The differential diagnosis associated with the presentation includes Seizure/electrolytes abnormality Admission/Observation Consideration of admission/observation: Escalation of care including admission/observation considered Lab Data [facility] Lab Attestation statement: I reviewed the patient's lab results. 06/03/23 19:16 06/03/23 21:08 Labs: Lab Results 06/03/23 06/03/23 06/03/23 Range/Units 19:16 19:21 21:08 WBC 11.3 H (4.8-10.8) X10*3/uL RBC 5.03 (4.60-5.80) X10*6/uL Hgb 15.1 (14.0-18.0) g/dl Hct 47.3 (42.0-52.0) % MCV 94.0 (80.0-98.0) fL MCH 30.0 (27.0-33.0) pg MCHC 31.9 (31.0-36.0) g/dl RDW 12.1 (11.0-16.0) % Plt Count 269 (160-400) X10*3/uL MPV 8.4 L (9.4-12.4) fL Immature Gran % (Auto) 0.3 (0.0-0.4) % Neut % (Auto) 72.7 (45-73) % Lymph % (Auto) 12.0 L (20-40) % [place] % (Auto) 9.4 (2-11) % Eos % (Auto) 5.1 H (0-4) % Baso % (Auto) 0.5 (0-2) % Lymph # (Auto) 1.4 (1.2-4.9) X10*3/uL [place] # (Auto) 1.1 (0.1-1.2) X10*3/uL Eos # (Auto) 0.6 H (0.0-0.4) X10*3/uL Baso # (Auto) 0.1 (0.0-0.2) X10*3/uL Abs Immat Gran (auto) 0.03 (0.00-0.03) X10*3/uL Absolute Neuts (auto) 8.2 (2.0-8.3) x10*3/uL Absolute Nucleated RBC 0.000 (0.0-0.012) X10*3/uL Nucleated RBC % (auto) 0.0 (0.0-0.2) /100WBC Sodium 139 (135-145) mmol/L Potassium 4.3 (3.3-5.1) mmol/L Chloride 106 (96-108) mmol/L Carbon Dioxide 25 (22-29) mmol/L Anion Gap 12 (12-20) BUN 16 (9-16) mg/dL Creatinine 0.77 (0.5-1.4) mg/dL Estim Creat Clear Calc 115.9 Estimated GFR > 60 Random Glucose 116 H (60-115) mg/dL Calcium 8.1 L D (8.4-10.2) mg/dL Magnesium 2.3 (1.6-2.6) mg/dL Total Bilirubin 0.4 (0.0-1.0) mg/dL AST 14 (5-37) U/L ALT 7 (0-40) U/L Alkaline Phosphatase 67 (39-117) U/L Total Creatine Kinase 54 (38-174) U/L Total Protein 6.2 L (6.5-8.0) g/dL Albumin 3.2 L (3.5-5.0) g/dL Urine Color Yellow Urine Appearance Clear Urine pH 6.0 (5.0-9.0) Ur Specific [place] <= 1.005 (1.005-1.025) Urine Protein Negative (Neg-Trace) mg/dL Urine Glucose (UA) Negative (Negative) mg/dL Urine Ketones Negative (Negative) mg/dL Urine Blood Negative (Negative) Urine Nitrite Negative (Negative) Ur Leukocyte Esterase Negative (Negative) Urine Opiates Screen Not Detected (Not Detect) Urine Fentanyl Screen Not Detected (Not Detect) Ur Barbiturates Screen Not Detected (Not Detect) Ur Phencyclidine Scrn Not Detected (Not Detect) Ur Amphetamines Screen Not Detected (Not Detect) U Benzodiazepines Scrn Not Detected (Not Detect) Urine Cocaine Screen Not Detected (Not Detect) U Marijuana (THC) Screen Not Detected (Not Detect) External Record Review External record reviewed: Inpatient record Procedures EJ/Peripheral Line Arm R: Time Out Performed: Yes Skin Cleansed in Sterile Fashion: Yes Size (gauge): 18 IV Secured and Dressing Applied: Yes Patient Tolerated Procedure: well Additional Comments: under US cannulated rt basilic vein with 18 marco catheter good flow/flashed well/lab obtained Discharge Plan Discharge Clinical Impression: Epileptic seizure Patient Disposition: Still a Patient Prescriptions: No Action levetiracetam [Keppra] 750 mg tablet 750 mg PO BID 30 Days Qty: 60 0RF clonazepam 1 mg tablet 1 mg PO BEDTIME Qty: 30 0RF melatonin 10 mg Tablet 10 mg PO BEDTIME
[2023-06-03 17:57] VITALS: BP 155/99; BP 160/82; PULSE 92; PULSE 98; RESP 17; TEMP 36.9; O2SAT 95; O2SAT 99; BMI 33.5
[2023-06-03 19:20] LABS: MANUAL DIFF FLAG NO
[2023-06-03 19:22] LABS: Basophils Absolute Auto 0.1 X10*3/uL (0.0-0.2); Basophils Percent Auto 0.5 % (0-2); Eosinophils Absolute Auto 0.6 X10*3/uL (0.0-0.4); Eosinophils Percent Auto 5.1 % (0-4); Hematocrit 47.3 % (42.0-52.0); Hemoglobin 15.1 g/dl (14.0-18.0); Imm Gran Abs Auto 0.03 X10*3/uL (0.00-0.03); Imm Gran Pct Auto 0.3 % (0.0-0.4); Lymphocytes Absolute Auto 1.4 X10*3/uL (1.2-4.9); Mean Corpuscular HGB Conc 31.9 g/dl (31.0-36.0); Mean Platelet Volume 8.4 fL (9.4-12.4); Monocytes Absolute Auto 1.1 X10*3/uL (0.1-1.2); Monocytes Percent Auto 9.4 % (2-11); Neutrophils Absolute Auto 8.2 x10*3/uL (2.0-8.3); Neutrophils Percent Auto 72.7 % (45-73); Platelet Count 269 X10*3/uL (160-400); Red Blood Count 5.03 X10*6/uL (4.60-5.80); Red Cell Distribution Width 12.1 % (11.0-16.0); White Blood Count 11.3 X10*3/uL (4.8-10.8)
[2023-06-03 19:23] VITALS: BP 154/80; PULSE 97; RESP 17; TEMP 36.8; O2SAT 95
[2023-06-03] MEDS: 0.9 % Sodium Chloride 1,000 ML 999 ML IVCONT (19:25)
[2023-06-03] MEDS: levETIRAcetam in NaCl (iso-os) 1,500 MG/100 ML PIGGYBACK 400 MG IV (19:25)
[2023-06-03 19:29] LABS: Appearance Urine Clear; Color Urine Yellow; Glucose Urine UA Negative (Negative); Leukocyte Esterase Urine Negative (Negative); Nitrite Urine Negative (Negative); Specific Gravity - Urine <= 1.005 (1.005-1.025); Urine Blood Negative (Negative); Urine Ketones Negative (Negative); Urine Protein Negative (Neg-Trace)
[2023-06-03 19:53] LABS: Amphetamine Screen Urine Not Detected (Not Detect); Barbiturates, Urine Not Detected (Not Detect); Benzodiazepines Screen Urine Not Detected (Not Detect); Cannabinoid Screen Urine Not Detected (Not Detect); Cocaine Screen Urine Not Detected (Not Detect); Fentanyl, urine Not Detected (Not Detect); Opiate Screen Urine Not Detected (Not Detect); Phencyclidine Screen Urine Not Detected (Not Detect)
[2023-06-03 20:54] VITALS: BP 141/79; PULSE 94; RESP 17; TEMP 36.5; O2SAT 95
[2023-06-03 21:40] LABS: Anion Gap 12 (12-20)
[2023-06-03 21:49] LABS: Alanine Aminotransferase 7 U/L (0-40); Albumin Level 3.2 g/dL (3.5-5.0); Alkaline Phosphatase 67 U/L (39-117); Aspartate Amino Transferase 14 U/L (5-37); Bilirubin Total 0.4 mg/dL (0.0-1.0); Blood Urea Nitrogen 16 mg/dL (9-16); Calcium 8.1 mg/dL (8.4-10.2); Carbon Dioxide 25 mmol/L (22-29); Chloride 106 mmol/L (96-108); Creatinine Clr Calc Pharmacy 115.9; Estimated Glomerular Filt Rate > 60; Glucose Random 116 mg/dL (60-115); Magnesium 2.3 mg/dL (1.6-2.6); Potassium 4.3 mmol/L (3.3-5.1); Sodium 139 mmol/L (135-145); Total Protein 6.2 g/dL (6.5-8.0)
--- NOTE | 2023-06-03 22:37 | PC.NURSE ---
Assumed car of pt at 1900. Pt alert and oriented and appears calm and cooperative.PT reports two seizures today. His neighbor who cares for him reports that his seizure today was much different than past one which is why she called 911. Pt states he has 2-3 a week on average.PT denies taking any seizure meds at this time noting that he was taken off of it as they were making him have more seizures. Pt does not have any VNA or other home services, using wheelchair to get around in the community. VSS. Patient medicated as per OCT. Plan is for case management consult. Call reece within in reach
[2023-06-03] MEDS: clonazePAM 1 MG TABLET PO (22:40)
[2023-06-04 03:07] VITALS: BP 128/92; PULSE 79; RESP 17; TEMP 36.5; O2SAT 95
[2023-06-04 06:03] VITALS: BP 130/85; PULSE 81; RESP 17; TEMP 36.5; O2SAT 96
[2023-06-04 07:59] VITALS: BP 141/80; PULSE 91; RESP 16
[2023-06-04] MEDS: levETIRAcetam 250 MG TABLET 750 MG PO (08:24)
--- NOTE | 2023-06-04 08:36 | PHA.MEDREC ---
Pharmacy Consult ? Medication Reconciliation Pharmacy has completed the medication reconciliation. CONFIRMED WITH PT THAT HE IS ONLY ON CLONAZEPAM 1.5 MG AT BEDTIME. CLAIM HISTORY SUPPORTS THIS.
--- NOTE | 2023-06-04 09:21 | PC.NURSE ---
Pt is alert/oriented. Seizure precautions in place. Denies pain. Keppra given. Pt reports only taking Klonopin at home at night. VSS. NSR on monitor.
--- NOTE | 2023-06-04 13:32 | MHC.CM.ED ---
Received case management consult overnight. Patient came to the ER due to seizures. Patient has a history of epilepsy but is not on seizure meds. Work up essentially negative otherwise. Physical therapy eval completed. Home therapy is recommended. Met with patient in regards to discharge planning. Patient lives alone, uses walker/electric wheelchair for mobility and had no services prior to coming to the ER. PCP verified as Rachael Chavez. Copy of HCP veriifed to be on file. Patient agreeable to referral for VNA being broadcasted. [facility] is able to accept patient. Patient agrees to [facility]. BLS transport will be booked when Katie SABILLON is ready to d/c patient. Continue to monitor for d/c needs.
--- NOTE | 2023-06-04 15:01 | PC.NURSE ---
Pt to be transferred home by Uber, family friend set up uber, pt assisted to [facility]. Friend to meet pt at home with wheelchair.
== END 2023-06-04 15:03 | disposition home or self-care (01) ==
PROVIDERS: Emergency Provider Emergency Medicine; PCP Internal Medicine
DX: G40.909 Epilepsy, unspecified, not intractable, without status epilepticus (principal); I69.30 Unspecified sequelae of cerebral infarction; Z87.820 Personal history of traumatic brain injury; Z87.891 Personal history of nicotine dependence; Z79.899 Other long term (current) drug therapy
CPT/HCPCS: 36410; 36415; 80053; 80307; 81003; 82550; 83735; 85025; 96365; 96366; 97162; 99284; 99285; J1953

== ENCOUNTER 2024-04-15 14:25 | Outpatient (REF) | payer MEDICARE, SELFPAY ==
[2024-04-18 11:20] LABS: Lorazepam GCMS Urine NEGATIVE; Nordiazepam, GCMS Urine NEGATIVE; Oxazepam, GCMS Urine NEGATIVE
[2024-04-18 11:21] LABS: Alphahydroxymidazolam,GCMS Ur NEGATIVE; Alphahydroxytriazolam, GCMS Ur NEGATIVE; Alprazolam, GCMS Urine NEGATIVE; Flurazepam Metabolite,GCMS Ur NEGATIVE; Temazepam, GCMS Urine NEGATIVE
== END 2024-04-15 14:26 | disposition home or self-care (01) ==
LOC: HO.CHCLNP 14:25
PROVIDERS: Visit Provider Internal Medicine
DX: G40.909 Epilepsy, unspecified, not intractable, without status epilepticus (principal)
CPT/HCPCS: 80346

== ENCOUNTER 2025-01-25 10:30 | Outpatient (REF) | payer MEDICARE, SELFPAY ==
--- NOTE | ~2025-01-25 | MR_ITS ---
EXAMINATION: MR ABDOMEN WITHOUT THEN WITH IV CONTRAST HISTORY: Liver hemangioma COMPARISON: Correlation is made with an outside CT of the abdomen with contrast from [facility] dated 08/15/2024. TECHNIQUE: Axial in and out of phase T1-weighted gradient echo, axial diffusion weighted, and axial and coronal HASTE T2 with fat saturation images were obtained through the abdomen. Subsequently, fat suppressed axial and coronal T1-weighted images were obtained after the intravenous administration of 8 mL Gadavist. FINDINGS: There is no significant loss of signal intensity within the liver on opposed phase imaging to suggest steatosis. There is a 1.4 cm T2 hyperintense lesion in segment which demonstrates peripheral nodular enhancement with known over time, consistent with a hemangioma. No additional liver mass is identified. The hepatic and portal veins patent. There is no intra or extrahepatic biliary ductal dilatation. The gallbladder is contracted and demonstrates multiple cystic spaces within the wall suggestive of adenomyomatosis. The spleen, pancreas, adrenals, and right kidney are unremarkable. There is extensive left renal scarring. There is a 1.2 cm cyst at the lower pole of the left kidney. No retroperitoneal lymphadenopathy or ascites is identified in the upper abdomen. MR/MR abdomen wo/w con IMPRESSION: 1. 1.4 cm hemangioma in segment of the liver. 2. Extensive left renal scarring. 3. Findings suggestive of adenomyomatosis of the gallbladder. This could be confirmed with ultrasound. Electronically signed by: Som Krishna MD 01/26/2025 07:38 AM EDT
--- OUTSIDE RECORDS SUMMARY | 2025-01-25 11:29 | XMS_ITS | Encounter Summary ---
Author Organization [employer] Address [address] [place] [address] Care Team Providers Care Rn Embedded Name Role Phone Rachael Chavez MD Primary Care Provider [phone] Reason for Visit * Reason Comments Med Refill Encounter Details Date Type Department Care Team ([facility] st Contact Info) Description 01/05/2024 Refill [facility] [address], [place] [id number] Otilia Petersen MD [address] [place] [address] Social History Tobacco Use Types Packs/Day Years Used Date Smoking Tobacco: Former Cigarettes Q uit: 2018 Passive Smoke Exposure: Past Smokeless Tobacco: Never Alcohol Use Standard Drinks/Week Comments Defer 0 (1 standard drink = 0.6 oz pur e alcohol) Depression Answer Date Recorded Patient Health Questionnaire-9 Score 0 09/09/2022 Housing Stability Answer Date Recorded What is your housing situation today? I have annalee cannon 06/09/[address] you li ve. Do you have problems with any of the following? None of the above 06/09/2023 Food Insecurity Answer Date Recorded Within the past 12 months, y ou worried that your food would run out before you got money to buy more: Never True 06/09/2023 Within the past 12 months,th e food you bought just didn't last and you didn't have enough money to get more: Never True Transportation Answer Date Recorded In the past 12 months, has l ack of transportation kept you from medical appts, meetings, work or from getting things needed for daily living? No 06/09/2023 Utilities Answer Date Recorded In the past 12 months, has t he electric, gas, oil or water company threatened to shut off services in your home? No 06/09/2023 Depression Answer Date Recorded Patient Health Questionnaire-2 Score 0 09/09/2022 Sex and Gender Information Value Date Recorded Sex Assigned at Male 06/23/2022 10:18 AM EDT Legal Sex Male 10:18 AM EDT Gender Identity Male 06/23/2022 10:18 AM EDT Sexual Orientation Straight 06/23/2022 10 :18 AM EDT documented as of this encounter Plan of Treatment Upcoming Encounters Date Type Department Care Team ([facility] st Contact Info) Description 03/16/2025 1:30 PM EDT Clinical Support [facility] [address] [place] [address] Anette Teague, RN [address] [place] [address] documented as of this encounter Goals Goal Patient Goal Type Associated Problems Recent Progress Patient-Stated? Author Patient will manage their medication General Not on track( 023 11:14 AM EDT) Yes Niki Henderson, PharmD Note: Will obtain refill from [facility] for clonazepam. Note: Patient refused to restart simvastatin documented as of this encounter Visit Diagnoses Not on filedocumented in this encounter Additional Health Concerns Assessment Noted Time PHQ-9 Depression Total Score: 0 09/09/19 23 10:52 AM EST documented as of this encounter Care Teams Rn Embedded Relationship Specialty Start Date End Date Rachael Chavez MD [address] [place] [address] PCP - General Internal Medicine 07/08/18 documented as of this encounter
[2025-01-25] MEDS: gadobutroL 10 ML VIAL IVPUSH (12:01)
== END 2025-01-25 10:31 | disposition home or self-care (01) ==
LOC: HO.MRI 10:30
PROVIDERS: PCP Internal Medicine; Visit Provider Internal Medicine
DX: G40.909 Epilepsy, unspecified, not intractable, without status epilepticus (principal); D18.03 Hemangioma of intra-abdominal structures
CPT/HCPCS: 74183; A9585

== ENCOUNTER → 2025-01-25 10:47 | Outpatient (BNV) | payer MEDICARE, SELFPAY | PROVIDERS: PCP Internal Medicine; Visit Provider Radiology Diagnostic Radiology | DX: D18.03 Hemangioma of intra-abdominal structures (principal); N28.89 Other specified disorders of kidney and ureter | CPT/HCPCS: 74183 ==

== ENCOUNTER 2025-04-11 11:31 | Emergency (ER) | payer MEDICARE, SELFPAY ==
--- NOTE | ~2025-04-11 | CT_ITS ---
EXAMINATION: CT CERVICAL SPINE WITHOUT IV CONTRAST HISTORY: seizure and fall. TECHNIQUE: Helical CT of the cervical spine was performed per standard departmental protocol. Coronal and sagittal reformatted images were also evaluated. One or more of the following techniques was used for dose reduction: Automated exposure control, adjustment of the mA and/or kV according to patient size, use of iterative reconstruction technique. DLP: 433 mGy-cm COMPARISON: Comparison is made with the prior examination dated 08/10/2021. FINDINGS: CERVICAL SPINE: The vertebral bodies maintain normal height without evidence of fracture or subluxation. There is mild leftward curvature and straightening of the normal cervical lordosis. There is diffuse moderate degenerative disc disease with disc space narrowing and osteophyte formation. There is diffuse facet osteoarthritis and uncovertebral joint hypertrophy causing multilevel neural foraminal stenosis. Evaluation for disc pathology is limited by lack of intrathecal contrast material, however. BRAIN: The visualized portion of the brain is unremarkable. SINUSES: The visualized paranasal sinuses, mastoid air cells and middle ear cavities are unremarkable. LUNG APICES: The visualized lung apices are clear. SOFT TISSUES: There is calcification of the internal carotid arteries. CT/CT cervical spine wo IV con IMPRESSION: No evidence of fracture or subluxation of the cervical spine. Degenerative changes as described. Electronically signed by: Som Krishna MD 04/11/2025 12:40 PM EDT
--- NOTE | ~2025-04-11 | CT_ITS ---
EXAMINATION: CT HEAD WITHOUT CONTRAST CLINICAL INFORMATION: seizure COMPARISON: November 01, 2022 TECHNIQUE: Contiguous axial imaging was performed from the skull base to vertex without intravenous administration of contrast. This CT examination was performed using dose optimization techniques as appropriate, variously including the following: *Automated exposure control *Adjustment of mA and/or kV according to patient size (this includes techniques or standardized protocols for targeted exams where dose is matched to indication/reason for exam; i.e. extremities or head) *Use of iterative reconstruction technique DLP: 786.35 mGy-cm FINDINGS: Soft tissue contusion/hematoma, large volume right frontotemporal. No acute cortical disruption in the bony calvarium or the skull base. No acute cortical disruption within the orbits or the nasal bones. No acute intracranial hemorrhage, mass effect, midline shift, hydrocephalus or herniation. There is prominence of the cerebellar folia and extra-axial CSF spaces in the posterior cranial fossa/perimesencephalic with volume loss of the brainstem structures. Davies-white matter differentiation is normal. Bilateral multifocal patchy deep periventricular white matter hypodensity. Calcified plaques in the V4 segments of the vertebral arteries and cavernous supracavernous segments both ICAs. CT/CT head/brain wo IV con IMPRESSION: Soft tissue contusion/hematoma, right frontotemporal. No acute fracture, bony calvarium. No acute intracranial hemorrhage. Concerning neurodegenerative disorder which could be in EtOH use-related versus olivopontocerebellar atrophy Electronically signed by: Efren Bell MD 04/11/2025 12:44 PM EDT
[2025-04-11 11:42] VITALS: BP 136/79; BP 139/82; PULSE 83; PULSE 84; RESP 16; TEMP 37; O2SAT 93; O2SAT 95; BMI 29.2
[2025-04-11 11:47] VITALS: BP 139/82; PULSE 84; RESP 16; TEMP 37; O2SAT 95
--- NOTE | 2025-04-11 11:55 | ED_ITS ---
HPI - Seizure General Chief Complaint: Seizure Stated Complaint: wit sz, hit head,fall from w/c Time Seen by Provider: 04/11/25 11:47 Source: patient and EMS Mode of arrival: EMS Limitations: no limitations History of Present Illness ED Provider: DR. Tamayo HPI Narrative: 57-year-old male history of TBI/CVA and seizure disorder since age of 1, patient stated that he is not taking any anti seizure medication because they do not work for him, patient only take clonazepam to help him to sleep. Patient was witnessed by bystanders having a 30 sec seizure fall down striking his head on the ground causing right forehead hematoma. Seizure History: Yes Related Data Home Medications ?Medication ?Instructions ?Recorded ?Confirmed clonazepam 0.5 mg tablet 1.5 mg PO BEDTIME 06/04/23 1 Previous Rx's ?Medication ?Instructions ?Recorded levetiracetam 750 mg tablet 750 mg PO BID #60 tabs 08/15 (Keppra) Allergies Allergy/AdvReac Type Severity Reaction Status Date / Time No Known Allergies (No Known Allergy Verified 04/11/25 11:45 Allergies*) Review of Systems 2 Review of Systems: All other systems are reviewed and are negative Constitutional: Reports as per HPI and Reports no additional constitutional complaints Eyes: Reports as per HPI and Reports no additional eye complaints Reports system reviewed and no additional complaints, except as documented Cardiovascular: Reports as per HPI and Reports no additional cardiovascular complaints Respiratory: Reports as per HPI and Reports no additional respiratory complaints Gastrointestinal: Reports as per HPI and Reports no additional gastrointestinal complaints Genitourinary: Reports no additional female genitourinary complaints Musculoskeletal: Reports no additional musculoskeletal complaints Skin/Breast: Reports system reviewed and no additional complaints, except as docu Psychiatric: Reports no additional psychiatric complaints Endocrine: Reports no additional endocrine complaints Hematologic/Lymphatic: Reports no additional hematologic/lymphatic complaints Allergic/Immunologic: Reports no additional allergic/immunologic complaints Reports system reviewed and no additional complaints, except as documented and Reports Abnormal speech present [facility] Past Medical History Medical History History of CVA with residual deficit CVA (cerebral vascular accident) Seizure disorder TBI (traumatic brain injury) Social History Social History Alcohol intake: never Patient Tobacco Use Status: Former Tobacco user Smoked in Last 30 Days: No Use of substances other than those prescribed or required for medical reasons: No Advance Directives: No Advance Directives Information Provided: Yes Advance Directives Date on File: 11/29/20 Do you have a plan to hurt others: No Plan Physical Exam 2 Vital Signs: Vital Signs: Last Vital Signs Temp 98.6 F 04/11/25 11:47 Pulse 84 04/11/25 11:47 Resp 16 04/11/25 11:47 BP 139/82 04/11/25 11:47 Pulse Ox 95 04/11/25 11:47 O2 Del Method Room Air 04/11/25 11:47 BMI result Body Mass Index 29.2 Vital signs have been reviewed and appear to be correct. Blood pressure elevated. Heart rate normal. Respiratory rate normal. Temperature normal. Oxygen saturation normal. Appearance: Alert. Oriented X3. No acute distress. Head: Normal external exam. Normocephalic. Egg like hematoma on right forehead, No Vidal signs noted. No raccoon eyes noted Eyes: PERRLA. EOMI. Conjunctiva and sclera normal. Eyelids normal. ENT: TM's Normal. Pharynx normal. Uvula midline. Moist mucous membranes. No trismus noted. No drooling noted. No muffled voice noted. Neck: Normal inspection. Neck supple. FROM. No adenopathy. Thyroid Normal. No meningeal signs. No neck mass noted. CVS: Normal heart rate and rhythm. Heart sound normal. No murmurs noted. Pulses normal throughout. Respiratory: No respiratory distress. Painless inspiration. Breath sounds normal. No wheezes/rales/rhonchi noted. Chest nontender. No accessory muscle usage noted or decreased air movement noted. Abdomen: Soft and nontender. Bowel sounds normal in all 4 quadrants. No distention noted. No organomegaly noted. No visible injury noted. Back: No CVA tenderness. Full range of motion noted. Skin: Skin warm and dry. Normal skin color. Normal skin turgor. No rashes/lesions/lacerations noted. Extremities: No lower extremity edema. Extremities exhibit normal range of motion. Extremities nontender. Neuro: Oriented X 3. Cranial nerve exam: II-XII are grossly intact No motor deficit. No sensory deficit. Reflexes normal. Course Reevaluation(s) Reevaluation #1: History of seizure, patient refuses to take antiseizure medication, seizure today labs unremarkable except of slight elevation potassium that should not be a concern at this point. Neuro exam is at patient's baseline, head CT is unremarkable, no C-spine fracture, discharge to follow-up with PCP. Time: 14:00 Medical Decision Making Differential Diagnosis Differential Diagnoses: The differential diagnosis associated with the presentation includes (Electrolyte derangement, severe anemia, intracranial bleed, cervical spine injury.) Admission/Observation Consideration of admission/observation: Escalation of care including admission/observation considered Lab Data MDM Lab Attestation statement: I reviewed the patient's lab results. 04/11/25 12:56 04/11/25 12:56 Labs: Lab Results 04/11/25 04/11/25 Range/Units 12:56 13:24 WBC 11.6 H (4.8-10.8) X10*3/uL RBC 4.84 (4.60-5.80) X10*6/uL Hgb 14.9 (14.0-18.0) g/dl Hct 45.2 (42.0-52.0) % MCV 93.4 (80.0-98.0) fL MCH 30.8 (27.0-33.0) pg MCHC 33.0 (31.0-36.0) g/dl RDW 12.0 (11.0-16.0) % Plt Count 284 (160-400) X10*3/uL MPV 8.5 L (9.4-12.4) fL Immature Gran % (Auto) 0.4 (0.0-0.4) % Neut % (Auto) 73.3 H (45-73) % Lymph % (Auto) 11.6 L (20-40) % [place] % (Auto) 9.0 (2-11) % Eos % (Auto) 5.1 H (0-4) % Baso % (Auto) 0.6 (0-2) % Lymph # (Auto) 1.4 (1.2-4.9) X10*3/uL [place] # (Auto) 1.1 (0.1-1.2) X10*3/uL Eos # (Auto) 0.6 H (0.0-0.4) X10*3/uL Baso # (Auto) 0.1 (0.0-0.2) X10*3/uL Abs Immat Gran (auto) 0.05 H (0.00-0.03) X10*3/uL Absolute Neuts (auto) 8.5 H (2.0-8.3) x10*3/uL Absolute Nucleated RBC 0.000 (0.0-0.012) X10*3/uL Nucleated RBC % (auto) 0.0 (0.0-0.2) /100WBC Sodium 138 (135-145) mmol/L Potassium 5.2 H (3.3-5.1) mmol/L Chloride 107 (96-108) mmol/L Carbon Dioxide 22 (22-29) mmol/L Anion Gap 14 (12-20) BUN 31 H (9-16) mg/dL Creatinine 1.12 (0.5-1.4) mg/dL Estim Creat Clear Calc 75.3 Estimated GFR > 60 Random Glucose 117 H (60-115) mg/dL Calcium 8.6 D (8.4-10.2) mg/dL Total Bilirubin 0.5 (0.0-1.0) mg/dL AST 26 (5-37) U/L ALT 14 (0-40) U/L Alkaline Phosphatase 66 (39-117) U/L Total Protein 6.4 L (6.5-8.0) g/dL Albumin 3.6 (3.5-5.0) g/dL Urine Color Yellow Urine Appearance Clear Urine pH 7.0 (5.0-9.0) Ur Specific [place] 1.020 (1.005-1.025) Urine Protein Negative (Neg-Trace) mg/dL Urine Glucose (UA) Negative (Negative) mg/dL Urine Ketones Negative (Negative) mg/dL Urine Blood Negative (Negative) Urine Nitrite Negative (Negative) Ur Leukocyte Esterase Negative (Negative) Independent Interpretation I performed an independent interpretation of an: CT Scan (Head/cervical spine:Soft tissue contusion/hematoma, right frontotemporal. No acute fracture, bony calvarium. No acute intracranial hemorrhage. Concerning neurodegenerative disorder which could be in EtOH use-related versus olivopontocerebellar atrophy) Radiology Impression Discussion of test interpretation with radiology: I have reviewed the radiologist's reading. Discharge Plan Discharge Clinical Impression: Generalized seizure Patient Disposition: Home, Self-Care Instructions: Epilepsy in Older Adults (ED) Prescriptions: No Action clonazepam 0.5 mg tablet 1.5 mg PO BEDTIME levetiracetam [Keppra] 750 mg tablet 750 mg PO BID Qty: 60 0RF Print Language: Telugu
[2025-04-11 13:22] LABS: Alanine Aminotransferase 14 U/L (0-40); Albumin Level 3.6 g/dL (3.5-5.0); Alkaline Phosphatase 66 U/L (39-117); Anion Gap 14 (12-20); Aspartate Amino Transferase 26 U/L (5-37); Blood Urea Nitrogen 31 mg/dL (9-16); Calcium 8.6 mg/dL (8.4-10.2); Carbon Dioxide 22 mmol/L (22-29); Chloride 107 mmol/L (96-108); Creatinine Clr Calc Pharmacy 75.3; Estimated Glomerular Filt Rate > 60; Potassium 5.2 mmol/L (3.3-5.1); Sodium 138 mmol/L (135-145); Total Protein 6.4 g/dL (6.5-8.0)
[2025-04-11 13:23] LABS: Hematocrit 45.2 % (42.0-52.0); Hemoglobin 14.9 g/dl (14.0-18.0); Imm Gran Abs Auto 0.05 X10*3/uL (0.00-0.03); Imm Gran Pct Auto 0.4 % (0.0-0.4); Lymphocytes Absolute Auto 1.4 X10*3/uL (1.2-4.9); Mean Corpuscular HGB Conc 33.0 g/dl (31.0-36.0); Mean Corpuscular Hemoglobin 30.8 pg (27.0-33.0); Mean Corpuscular Volume 93.4 fL (80.0-98.0); NRBC Abs Auto 0.000 X10*3/uL (0.0-0.012); NRBC Pct Auto 0.0 /100WBC (0.0-0.2); Platelet Count 284 X10*3/uL (160-400); Red Blood Count 4.84 X10*6/uL (4.60-5.80); White Blood Count 11.6 X10*3/uL (4.8-10.8)
[2025-04-11 13:32] LABS: Appearance Urine Clear; Glucose Urine UA Negative (Negative); PH 7.0 (5.0-9.0); Specific Gravity - Urine 1.020 (1.005-1.025)
--- OUTSIDE RECORDS SUMMARY | 2025-04-11 13:51 | XMS_ITS | Encounter Summary ---
Author Organization [employer] Address [address] [place] [address] Care Team Providers Care Jewel Inspector Name Role Phone Rachael Chavez MD Primary Care Provider [phone] Reason for Visit * Reason Comments Med Refill Encounter Details Date Type Department Care Team ([facility] st Contact Info) Description 01/05/2024 Refill [facility] [address], [place] [phone] Otilia Petersen MD [address] [place] [address] Social History Tobacco Use Types Packs/Day Years [...] Upcoming Encounters Date Type Department Care Team ([facility] st Contact Info) Description 04/13/2025 1:00 PM EDT Clinical Support [facility] [address] [place] [address] Anette Teague, RN [address] [place] [address] documented as of this encounter Goals Goal Patient Goal Type Associated Problems Recent Progress Patient-Stated? Author Patient will manage their medication General Not on track( 023 11:14 AM EDT) Yes Niki Henderson, ShanikaD Note: Will obtain refill from [facility] for clonazepam. Note: Patient refused to restart simvastatin documented as of this encounter Visit Diagnoses Not on filedocumented in this encounter Additional Health Concerns Assessment Noted Time PHQ-9 Depression Total Score: 0 09/09/19 23 10:52 AM EST documented as of this encounter Care Teams Jewel Inspector Relationship Specialty Start Date End Date Rachael Chavez MD [address] [place] [address] PCP - General Internal Medicine 07/08/18 documented as of this encounter
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
--- OUTSIDE RECORDS SUMMARY | 2025-04-11 13:51 | XMS_ITS | Patient Health Record ---
Author Organization [facility] Address [address] [place] [id number] Care Team Providers Care Patient Registration Rep Name Role Phone Crump Som Unavailable [phone] Reason For Referral No Information Plan Of Treatment No Information
[2025-04-11 13:55] LABS: Cannabinoid Screen Urine Not Detected (Not Detect)
[2025-04-11 14:32] LABS: MANUAL DIFF FLAG NO
[2025-04-11 14:34] VITALS: BP 131/77; PULSE 82; RESP 20; TEMP 36.7; O2SAT 96
[2025-04-11 14:47] LABS: Potassium 4.7 mmol/L (3.3-5.1)
--- NOTE | 2025-04-11 16:40 | PC.NURSE ---
pt is alert and oriented, no seizure activity the entire time in the ED, seizure pads in place for precautions, plan to go home via ambulance, eta at this time is 1800
[2025-04-11 17:46] VITALS: BP 151/70; PULSE 52; RESP 18; TEMP -17.7; TEMP 0; O2SAT 96
== END 2025-04-11 17:47 | disposition home or self-care (01) ==
PROVIDERS: Emergency Provider Emergency Medicine
DX: G40.909 Epilepsy, unspecified, not intractable, without status epilepticus (principal); S09.90XA Unspecified injury of head, initial encounter; W19.XXXA Unspecified fall, initial encounter; Y93.9 Activity, unspecified; Y92.9 Unspecified place or not applicable; Y99.9 Unspecified external cause status; Z91.148 Patient's other noncompliance with medication regimen for other reason
CPT/HCPCS: 36415; 70450; 72125; 80053; 80307; 81003; 82550; 84132; 85025; 99284

== ENCOUNTER → 2025-04-11 11:55 | Outpatient (BNV) | payer MEDICARE, SELFPAY | PROVIDERS: Emergency Provider Emergency Medicine; Visit Provider Radiology Diagnostic Radiology | DX: M50.320 Other cervical disc degeneration, mid-cervical region, unspecified level (principal); G40.89 Other seizures | CPT/HCPCS: 70450 ==